=== PATIENT | male | born 1935 | race Caucasian/White ===

== ENCOUNTER 2021-01-26 09:45 | Outpatient (RCR) | payer MEDICARE, BC, SELFPAY ==
[2021-01-12 10:35] VITALS: BP 147/79; PULSE 71; TEMP 36.2
--- NOTE | 2021-01-12 15:31 | HP.PCM_ITS ---
History of Present Illness Date of Service: 01/12/21 Chief Complaint: Non healing Right leg Wound History of Wound: Mr. Muir is an 85 yo who presents to the wound center due to nonhealing right leg wound. Sustained 1 month ago after he was poked by a wire. Since he sustained the wound, he states that he has applied mupirocin ointment and some other dressings without any significant improvement. Patient states that it is very tender and rates his pain most times as an 8-9/10. Has also been on antibiotics most recent of which he completed 3 days ago. No prior/similar history. No chills, fever or otherwise feeling of unwell. [facility] Medical History (Updated 01/12/21 @ 15:[address] Logan Chao MD) Wound of right lower extremity Home Medications mupirocin TOPICAL 01/12/21 [History Last Taken Unknown] Social History Smoking Status: Former smoker ROS Constitutional Constitutional: Denies fatigue, fever(s), frequent falls, headache(s), increased appetite, lethargy or malaise Eyes Eyes: Denies blindness, bloody eye, blurry vision, burning, double vision, dry eyes, halo effect or itchy eyes ENT HEENT: Denies dental pain, disequillibrium, headache(s), hearing loss, hoarseness, lip swelling, mouth pain or mucositis Cardiovascular Cardiovascular: Denies chest pain at rest, chest pain with activity, claudication, clubbing, cold extremities, cyanosis or pale coelho skin Respiratory/Chest Respiratory/Chest: Denies difficulty clearing secretions, dry cough, dusky skin, excessive phlegm production, hemoptysis, hoarseness or pale skin Gastrointestinal Gastrointestinal: Denies abdominal pain, belching, chewing difficulty, coffee ground emesis, constipation, cramping or dysphagia Genitourinary Genitourinary: Denies abdominal discomfort, difficulty urinating, dysuria, erectile dysfunction or external genitalia discoloration Musculoskeletal Musculoskeletal: Denies deformity, difficulty walking, muscle cramps, muscle spasms, muscle weakness, myalgias or neck pain Integumentary Integumentary: Denies change in hair, change in pigmentation, erythema, furuncle, hirsutism or jaundice Neurologic Neurologic: Denies abnormal movements, abnormal speech, behavior changes, h eadache(s), lack of coordination or loss of vision Psychiatric Psychiatric: Denies depression, difficulty concentrating, mood swings, paranoia, suicidal ideation, suicidal thoughts or visual hallucinations Endocrine Endocrinology: Denies excessive sweating, fatigue, flushing, heat intolerance, increase in ring/shoe/hat size or palpitations Hematologic/Lymphatic Hematologic/Lymphatic: Denies anemia, easy bleeding, easy bruising or lymphadenopathy Allergic/Immunologic Allergic/Immunologic: Denies tongue swelling, hives, urticaria, eczemia or wheezing Vital Signs Vital Signs Vital Signs: 01/12/21 10:35 Temperature 97.1 F L Temperature Source Temporal Pulse Rate 71 Blood Pressure 147/79 H Blood Pressure Mean 101 Blood Pressure Source Monitor Blood Pressure Position Sitting Blood Pressure Location Left Arm Physical Exam Const alert, oriented x3 and no apparent distress General Appearance: cooperative and comfortable HEENT normocephalic and head/scalp atraumatic Eyes PERRL and EOMs intact bilaterally Neck full ROM General: normal visual inspection Resp normal respiratory effort Effort and Inspection: able to speak in complete sentences Skin Wounds: wounds noted Neuro oriented x3, CN's II-XII intact bilaterally, moves all extremities and no focal motor deficits Psych mental status grossly normal Appearance: grossly normal Attitude: calm Speech: normal speech Debridement Note Debridement Note Wound debrided: Right Lower Extremity Type of Debridement: Excisional debridement Anesthesia Used: 4% Lidocaine Solution Depth: Down to and including healthy tissue and in the subcutaneous layer Percentage of wound debrided: 100 Instrument Used: 5mm curette Tissue Removed: Slough and devitalized tissue Severity: Fat Layer Exposed Amount of bleeding with debridement: Mild Bleeding Controlled with: Pressure Patient tolerated procedure: Patient tolerated procedure well Post-Debridement Measurements and Additional Note: Post-Debridement Measurements/Treatment - Nurse 1 - General Ulcer Assessment Start: 01/12/21 10:10 Freq: Status: Active Protocol: ASHLI.JOJO Activity Type Activity Date Activity User E-Sign Co-Sign Detail Recorded Client Recorded Date Recorded By Document 01/12/21 10:35 ZANE [id number] 01/12/21 10:40 ZANE 01/12/21 10:35 - Today's Visit Information Type of service Initial Visit Arrival Mode Ambulatory Patient Identification Verified (Name & Yes ) Vital Signs Temperature (97.8 F-99.1 F) 97.1 F L Temperature Source Temporal Pulse Rate (60-100) 71 Pulse Location Monitor Blood Pressure (90/60-120/80) 147/79 H Blood Pressure Mean 101 Source Monitor Position Sitting Blood Pressure Location Left Arm History Since Last Visit- (Skip if this is Patient's initial visit) Have you changed medications since your No last visit? Any new allergies or adverse reactions No Had a fall/change in ADL's that may No increase risk of falls Signs or symptoms of abuse and/or No neglect since last visit Have you been in the hospital since your No last visit? Has dressing in place as prescribed No Has compression in place as prescribed N/A Has offloadiing in place as prescribed N/A Experienced any changes in pain level or No management Left Footwear Regular Shoe Right Footwear Regular Shoe Pain Scale: 0-10 Numeric Is Patient Pain Free? Yes WC - Nurse 1 - General Ulcer Measurement Start: 01/12/21 10:10 Freq: Status: Active Protocol: Activity Type Activity Date Activity User E-Sign Co-Sign Detail Recorded Client Recorded Date Recorded By Document 01/12/21 10:35 KR [id number] 01/12/21 10:40 ZANE 01/12/21 10:35 Wound Center Nurse 1 #1 Left medial LE -Current Size (cm) - Length 1.5 -Current Size (cm) - Width 1.5 -Current Size (cm) - Depth 0.1 -Total Square Cm 2.25 -Exudate Amt Small -Exudate Type Serosanguineous -Wound Margin Distinct, Outline Attached -Granulation Amt Medium (34-66%) -Granulation Quality Red -Necrosis Amt None Present (0 %) -Texture (Nina-wound Skin Appearance) Assessed, Scarring -Moisture (Nina-wound Skin Appearance) Assessed,Dry/ Scaly -Color (Nina-wound Skin Appearance) No Abnormality, Assessed -Temperature (Nina-wound Skin No Abnormality Appearance) (Pt Warm) -Tenderness on Palpation (Nina-wound No Skin Appearance) -Ulcer Cleansing Rinsed/ Irrigated with Saline -Foul Odor after Cleansing No -Anesthetic Used 5% Lidocaine Gel Right Calf (cm) 32 Right Ankle (cm) 22 WC - Nurse 2 - General Ulcer CM Notes Start: 01/12/21 10:10 Freq: Status: Active Protocol: Activity Type Activity Date Activity User E-Sign Co-Sign Detail Recorded Client Recorded Date Recorded By Document 01/12/21 11:04 MW [id number] 01/12/21 11:13 MW 01/12/21 11:04 Wound Center Nurse 2 #1 Left medial LE -Time 11:04 -Correct Patient Yes -Correct Side, Site, Position Yes -Correct Procedure Yes -Procedure Performed Yes -Type of Procedure Debridement -Clinical Debridement Subcutaneous -Tissue Removed Subcutaneous -Post Debridement (cm) - Length 1.0 -Post Debridement (cm) - Width 0.8 -Post Debridement (cm) - Depth 0.2 -Total Square (Post) (cm) 0.80 -Area of Debridement (cm) - Length 1.0 -Area of Debridement (cm) - Width 0.8 -Total Square (Area) (cm) 0.80 -Tunneling No -Undermining/Tunneling No -Circular Undermining No -Wound/Ulcer Outcome Not Healed -Ulcer Cleansing Rinsed/ Irrigated with Saline -Foul Odor after Cleansing No -Bioengineered Tissue No -Bleeding Controlled with Pressure -Offloading No -Treatment Response Procedure Tolerated Well -Debridement - Subq, 1st 20sq cm Yes Pain Scale: 0-10 Numeric Is Patient Pain Free? Yes - Nurse 3 - General Ulcer D/C NN Start: 01/12/21 10:10 Freq: Status: Active Protocol: Activity Type Activity Date Activity User E-Sign Co-Sign Detail Recorded Client Recorded Date Recorded By Document 01/12/21 11:18 DL [id number] 01/12/21 11:22 DL 01/12/21 11:18 Wound Care Nurse 3 #1 Left medial LE -Ulcer Cleansing Rinsed/ Irrigated with Saline -Foul Odor after Cleansing No -Primary Dressing Applied NonAdherent Contact Layer, Promogran -Primary Dressing Covered/Secured with Dry Gauze, Secured with Tape -Promogran 1 Treatment Response Procedure Tolerated Well Pain Scale: 0-10 Numeric Is Patient Pain Free? 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 Believes he was poked by a wire. Was seen by his PCP and treated with Keflex and mupirocin ointment however wound has not improved. Also reports a lot of pain. Debridement done as documented above pump, procedure was well- tolerated. Cultures taken. Promogran daily with Adaptic over top. Tubigrip for edema management. Elevate lower extremities when seated and in bed. Exercise as tolerated. Avoid idle standing. His questions were answered and he was advised to call with any further questions or concerns. Follow-up in 1 week. This note was generated with [employer] dictation software. It may contain incorrect words, spelling, and punctuation that were not noted in checking the note before signing.
[2021-01-19 10:24] VITALS: BP 146/71; PULSE 66; RESP 18; TEMP 35.9
--- NOTE | 2021-01-19 12:55 | PN.PCM_ITS ---
History of Present Illness Date of Service: 01/19/21 Chief Complaint: Non healing Right leg Wound History of Wound: Mr. Muir is an 85 yo who presents to the wound center due to nonhealing right leg wound. Sustained 1 month ago after he was poked by a wire. Since he sustained the wound, he states that he has applied mupirocin ointment and some other dressings without any significant improvement. Patient states that it is very tender and rates his pain most times as an 8-9/10. Has also been on antibiotics most recent of which he completed 3 days ago. No prior/similar history. No chills, fever or otherwise feeling of unwell. Subjective Subjective No new concerns at this time. Right lower extremity wound is improving. Objective Data Objective Data Vital Signs: Vital Signs Temp Pulse Resp BP 96.6 F L 66 18 146/71 H 01/19/21 10:24 01/19/21 10:24 01/19/21 10:24 01/19/21 10:24 Lab / Micro Data Micro: Microbiology 01/12/21 11:10 Wound Abcess - Leg, Left Gram Stain - Final 01/12/21 11:10 Wound Abcess - Leg, Left Wound Culture - Final Serratia marcescens 01/12/21 11:10 Wound Abcess - Leg, Left Anaerobic Culture - Final Anaerobic cocci Charges/Coding Procedures Integumentary 111xxx-113xx: [id number] Clare subq tissue 20 sq cm/< Physical Exam Const alert, oriented x3 and no apparent distress General Appearance: cooperative and comfortable HEENT normocephalic and head/scalp atraumatic Eyes PERRL and EOMs intact bilaterally Neck full ROM General: normal visual inspection Resp normal respiratory effort Effort and Inspection: able to speak in complete sentences Skin Wounds: wounds noted Neuro oriented x3, CN's II-XII intact bilaterally, moves all extremities and no focal motor deficits Psych mental status grossly normal Appearance: grossly normal Attitude: calm Speech: normal speech Debridement Note Debridement Note Wound debrided: Right lower extremity Type of Debridement: Excisional debridement Anesthesia Used: 4% Lidocaine Solution Depth: Down to and including healthy tissue and in the subcutaneous layer Percentage of wound debrided: 100 Instrument Used: 3mm curette Tissue Removed: Slough and devitalized tissue Severity: Fat Layer Exposed Amount of bleeding with debridement: Mild Bleeding Controlled with: Pressure Patient tolerated procedure: Patient tolerated procedure well Post-Debridement Measurements and Additional Note: Post-Debridement Measurements/Treatment WC - Nurse 1 - General Ulcer Assessment Start: 01/12/21 10:10 Freq: Status: Active Protocol: TANESHA Activity Type Activity Date Activity User E-Sign Co-Sign Detail Recorded Client Recorded Date Recorded By Document 01/12/21 10:35 KR [id number] 01/12/21 10:40 KR Document 01/19/21 10:24 DL [id number] 01/19/21 10:26 DL 01/12/21 01/19/21 10:35 10:24 WC - Today's Visit Information Type of service Initial Visit Follow-up Visit (Physician/GENERAL OFFICE CLERK ) Arrival Mode Ambulatory Ambulatory,Cane Transfer Assistance None Patient Identification Verified (Name & Yes Yes ) Patient Requires Transmission-Based No Precautions Vital Signs Temperature (97.8 F-99.1 F) 97.1 F L 96.6 F L Temperature Source Temporal Temporal Pulse Rate (60-100) 71 66 Pulse Location Monitor Monitor Respiratory Rate (12-18) 18 Respiratory rate source Observation Blood Pressure (90/60-120/80) 147/79 H 146/71 H Blood Pressure Mean (mm Hg) 101 96 Source Monitor Monitor Position Sitting Blood Pressure Location Left Arm History Since Last Visit- (Skip if this is Patient's initial visit) Have you changed medications since your No No last visit? Any new allergies or adverse reactions No No Had a fall/change in ADL's that may No No increase risk of falls Signs or symptoms of abuse and/or No No neglect since last visit Have you been in the hospital since your No No last visit? Has dressing in place as prescribed No Yes Has compression in place as prescribed N/A No Has offloadiing in place as prescribed N/A N/A Experienced any changes in pain level or No No management Left Footwear Regular Shoe Right Footwear Regular Shoe Pain Scale: 0-10 Numeric Is Patient Pain Free? Yes Yes - Nurse 1 - General Ulcer Measurement Start: 01/12/21 10:10 Freq: Status: Active Protocol: Activity Type Activity Date Activity User E-Sign Co-Sign Detail Recorded Client Recorded Date Recorded By Document 01/12/21 10:35 KR [id number] 01/12/21 10:40 KR Document 01/19/21 10:24 DL [id number] 01/19/21 10:26 DL 01/12/21 01/19/21 10:35 10:24 Wound Center Nurse 1 #1 right medial LE -Current Size (cm) - Length 1.5 0.5 -Current Size (cm) - Width 1.5 0.5 -Current Size (cm) - Depth 0.1 0.1 -Total Square Cm 2.25 0.25 -Photo Taken No -Exudate Amt Small None Present -Exudate Type Serosanguineous -Wound Margin Distinct, Distinct, Outline Outline Attached Attached -Granulation Amt Medium (34-66%) Small (1-33%) -Granulation Quality Red Red -Necrosis Amt None Present (0 Small (1-33%) %) -Necrotic Tissue Type Adherent Slough -Structure Exposed N/A -Texture (Nina-wound Skin Appearance) Assessed, Scarring Scarring -Moisture (Nina-wound Skin Appearance) Assessed,Dry/ No Abnormality Scaly -Color (Nina-wound Skin Appearance) No Abnormality, Hemosiderin Assessed Staining -Temperature (Nina-wound Skin No Abnormality No Abnormality Appearance) (Pt Warm) (Pt Warm) -Tenderness on Palpation (Nina-wound No No Skin Appearance) -Ulcer Cleansing Rinsed/ Rinsed/ Irrigated with Irrigated with Saline Saline -Foul Odor after Cleansing No No -Anesthetic Used 5% Lidocaine 4% Lidocaine Gel Solution Right Calf (cm) 32 35.1 Right Ankle (cm) 22 24.4 WC - Nurse 2 - General Ulcer CM Notes Start: 01/12/21 10:10 Freq: Status: Active Protocol: Activity Type Activity Date Activity User E-Sign Co-Sign Detail Recorded Client Recorded Date Recorded By Document 01/12/21 11:04 MW [id number] 01/12/21 11:13 MW Document 01/19/21 10:35 MW [id number] 01/19/21 12:01 MW 01/12/21 01/19/21 11:04 10:35 Wound Center Nurse 2 #1 right medial LE -Time 11:04 10:35 -Correct Patient Yes Yes -Correct Side, Site, Position Yes Yes -Correct Procedure Yes Yes -Procedure Performed Yes Yes -Type of Procedure Debridement Debridement -Clinical Debridement Subcutaneous Subcutaneous -Tissue Removed Subcutaneous Subcutaneous -Post Debridement (cm) - Length 1.0 0.6 -Post Debridement (cm) - Width 0.8 0.7 -Post Debridement (cm) - Depth 0.2 0.1 -Total Square (Post) (cm) 0.80 0.42 -Area of Debridement (cm) - Length 1.0 0.6 -Area of Debridement (cm) - Width 0.8 0.7 -Total Square (Area) (cm) 0.80 0.42 -Tunneling No No -Undermining/Tunneling No No -Circular Undermining No No -Wound/Ulcer Outcome Not Healed Not Healed -Ulcer Cleansing Rinsed/ Rinsed/ Irrigated with Irrigated with Saline Saline -Foul Odor after Cleansing No No -Bioengineered Tissue No No -Bleeding Controlled with Pressure Pressure -Offloading No No -Treatment Response Procedure Procedure Tolerated Well Tolerated Well -Debridement - Subq, 1st 20sq cm Yes Yes Pain Scale: 0-10 Numeric Is Patient Pain Free? Yes Yes - Nurse 3 - General Ulcer D/C NN Start: 01/12/21 10:10 Freq: Status: Active Protocol: Activity Type Activity Date Activity User E-Sign Co-Sign Detail Recorded Client Recorded Date Recorded By Document 01/12/21 11:18 DL [id number] 01/12/21 11:22 DL 01/12/21 11:18 Wound Care Nurse 3 #1 right medial LE -Ulcer Cleansing Rinsed/ Irrigated with Saline -Foul Odor after Cleansing No -Primary Dressing Applied NonAdherent Contact Layer, Promogran -Primary Dressing Covered/Secured with Dry Gauze, Secured with Tape -Promogran 1 Treatment Response Procedure Tolerated Well Pain Scale: 0-10 Numeric Is Patient Pain Free? Yes - Visit Discharge Discharge Condition Stable Ambulatory Status Ambulatory Transportation Private Auto Assessment/Plan Assessment/Plan (1) Wound of right lower extremity: CODE(S): S81.801A - Unspecified open wound, right lower leg, initial encounter QUALIFIERS: Encounter type: initial encounter Qualified Code(s): S81.801A - Unspecified open wound, right lower leg, initial encounter PLAN: Debridement done as documented above pump, procedure was well- tolerated. Cultures with no significant growth. Switch to hydrogel for ease of application and cleaning. Apply daily, cover with Adaptic. Tubigrip for edema management. Elevate lower extremities when seated and in bed. Exercise as tolerated. Avoid idle standing. His questions were answered and he was advised to call with any further questions or concerns. Follow-up in 1 week. This note was generated with [employer] software. It may contain incorrect words, spelling, and punctuation that were not noted in checking the note before signing.
[2021-01-26 09:52] VITALS: BP 153/86; PULSE 77; TEMP 35.9
--- NOTE | 2021-01-26 13:38 | PN.PCM_ITS ---
History of Present Illness Date of Service: 01/26/21 Chief Complaint: Non healing Right leg Wound History of Wound: Mr. Muir is an 85 yo who presents to the wound center due to nonhealing right leg wound. Sustained 1 month ago after he was poked by a wire. Since he sustained the wound, he states that he has applied mupirocin ointment and some other dressings without any significant improvement. Patient states that it is very tender and rates his pain most times as an 8-9/10. Has also been on antibiotics most recent of which he completed 3 days ago. No prior/similar history. No chills, fever or otherwise feeling of unwell. Subjective Subjective No new concerns at this time. Modest improvement. Still has a lot of pain. Objective Data Objective Data Vital Signs: Vital Signs Temp Pulse Resp BP 96.7 F L 77 18 153/86 H 01/26/21 09:52 01/26/21 09:52 01/19/21 10:24 01/26/21 09:52 Lab / Micro Data Micro: Microbiology 01/12/21 11:10 Wound Abcess - Leg, Left Gram Stain - Final 01/12/21 11:10 Wound Abcess - Leg, Left Wound Culture - Final Serratia marcescens 01/12/21 11:10 Wound Abcess - Leg, Left Anaerobic Culture - Final Anaerobic cocci Charges/Coding Procedures Integumentary 111xxx-113xx: [id number] Clare subq tissue 20 sq cm/< Physical Exam Const alert, oriented x3 and no apparent distress General Appearance: cooperative and comfortable HEENT normocephalic and head/scalp atraumatic Eyes PERRL and EOMs intact bilaterally Neck full ROM General: normal visual inspection Resp normal respiratory effort Effort and Inspection: able to speak in complete sentences Skin Wounds: wounds noted Neuro oriented x3, CN's II-XII intact bilaterally, moves all extremities and no focal motor deficits Psych mental status grossly normal Appearance: grossly normal Attitude: calm Speech: normal speech Debridement Note Debridement Note Wound debrided: Right lower extremity Type of Debridement: Excisional debridement Anesthesia Used: 4% Lidocaine Solution Depth: Down to and including healthy tissue Percentage of wound debrided: 100 Instrument Used: 3mm curette Tissue Removed: Slough and devitalized tissue Severity: Fat Layer Exposed Amount of bleeding with debridement: Mild Bleeding Controlled with: Pressure Patient tolerated procedure: Patient tolerated procedure well Post-Debridement Measurements and Additional Note: Post-Debridement Measurements/Treatment ASHLI - Nurse 1 - General Ulcer Assessment Start: 01/12/21 10:10 Freq: Status: Active Protocol: TANESHA Activity Type Activity Date Activity User E-Sign Co-Sign Detail Recorded Client Recorded Date Recorded By Document 01/12/21 10:35 KR [id number] 01/12/21 10:40 KR Document 01/19/21 10:24 DL [id number] 01/19/21 10:26 DL Document 01/26/21 09:52 AK [id number] 01/26/21 09:56 AK 01/12/21 01/19/21 01/26/21 10:35 10:24 09:52 WC - Today's Visit Information Type of service Initial Visit Follow-up Visit Follow-up Visit (Physician/CATERING AND EVENTS MANAGER (Physician/CATERING AND EVENTS MANAGER ) ) Arrival Mode Ambulatory Ambulatory,Cane Ambulatory,Cane Transfer Assistance None Patient Identification Verified (Name & Yes Yes No ) Patient Requires Transmission-Based No No Precautions Safety Precautions NA Vital Signs Temperature (97.8 F-99.1 F) 97.1 F L 96.6 F L 96.7 F L Temperature Source Temporal Temporal Temporal Pulse Rate (60-100) 71 66 77 Pulse Location Monitor Monitor Monitor Respiratory Rate (12-18) 18 Respiratory rate source Observation Blood Pressure (90/60-120/80) 147/79 H 146/71 H 153/86 H Blood Pressure Mean (mm Hg) 101 96 108 Source Monitor Monitor Monitor Position Sitting Blood Pressure Location Left Arm History Since Last Visit- (Skip if this is Patient's initial visit) Have you changed medications since your No No No last visit? Any new allergies or adverse reactions No No No Had a fall/change in ADL's that may No No No increase risk of falls Signs or symptoms of abuse and/or No No No neglect since last visit Have you been in the hospital since your No No No last visit? Has dressing in place as prescribed No Yes Yes Has compression in place as prescribed N/A No No Has offloadiing in place as prescribed N/A N/A N/A Experienced any changes in pain level or No No No management Left Footwear Regular Shoe Regular Shoe Right Footwear Regular Shoe Regular Shoe Pain Scale: 0-10 Numeric Is Patient Pain Free? Yes Yes ASHLI - Nurse 1 - General Ulcer Measurement Start: 01/12/21 10:10 Freq: Status: Active Protocol: Activity Type Activity Date Activity User E-Sign Co-Sign Detail Recorded Client Recorded Date Recorded By Document 01/12/21 10:35 KR [id number] 01/12/21 10:40 KR Document 01/19/21 10:24 DL [id number] 01/19/21 10:26 DL Document 01/26/21 09:52 AK [id number] 01/26/21 09:56 AK 01/12/21 01/19/21 01/26/21 10:35 10:24 09:52 Wound Center Nurse 1 #1 right medial LE -Combined with other wound No -Current Size (cm) - Length 1.5 0.5 0.5 -Current Size (cm) - Width 1.5 0.5 0.5 -Current Size (cm) - Depth 0.1 0.1 0.2 -Total Square Cm 2.25 0.25 0.25 -Photo Taken No No -Epithelialization None Present -Tunneling No -Undermining/Tunneling No -Circular Undermining No -Change in Wound Grade/Stage No -Exudate Amt Small None Present Medium -Exudate Type Serosanguineous Serosanguineous -Wound Margin Distinct, Distinct, Distinct, Outline Outline Outline Attached Attached Attached -Granulation Amt Medium (34-66%) Small (1-33%) Medium (34-66%) -Granulation Quality Red Red Carlin -Slough/Fibrin No -Necrosis Amt None Present (0 Small (1-33%) Small (1-33%) %) -Necrotic Tissue Type Adherent Slough Adherent Slough -Structure Exposed N/A N/A -Texture (Nina-wound Skin Appearance) Assessed, Scarring Scarring Scarring -Moisture (Nina-wound Skin Appearance) Assessed,Dry/ No Abnormality Assessed, Scaly Maceration -Color (Nina-wound Skin Appearance) No Abnormality, Hemosiderin Assessed, Assessed Staining Erythema -Temperature (Nina-wound Skin No Abnormality No Abnormality No Abnormality Appearance) (Pt Warm) (Pt Warm) (Pt Warm) -Tenderness on Palpation (Nina-wound No No Yes: extremely Skin Appearance) sensitive -Ulcer Cleansing Rinsed/ Rinsed/ Rinsed/ Irrigated with Irrigated with Irrigated with Saline Saline Saline -Foul Odor after Cleansing No No No -Anesthetic Used 5% Lidocaine 4% Lidocaine 4% Lidocaine Gel Solution Solution,5% Lidocaine Gel Right Calf (cm) 32 35.1 Right Ankle (cm) 22 24.4 - Nurse 2 - General Ulcer CM Notes Start: 01/12/21 10:10 Freq: Status: Active Protocol: Activity Type Activity Date Activity User E-Sign Co-Sign Detail Recorded Client Recorded Date Recorded By Document 01/12/21 11:04 MW [id number] 01/12/21 11:13 MW Document 01/19/21 10:35 MW [id number] 01/19/21 12:01 MW Document 01/26/21 10:38 MW [id number] 01/26/21 10:40 MW 01/12/21 01/19/21 01/26/21 11:04 10:35 10:38 Wound Center Nurse 2 #1 right medial LE -Time 11:04 10:35 10:38 -Correct Patient Yes Yes Yes -Correct Side, Site, Position Yes Yes Yes -Correct Procedure Yes Yes Yes -Procedure Performed Yes Yes Yes -Type of Procedure Debridement Debridement Debridement -Clinical Debridement Subcutaneous Subcutaneous Subcutaneous -Tissue Removed Subcutaneous Subcutaneous Subcutaneous -Post Debridement (cm) - Length 1.0 0.6 0.6 -Post Debridement (cm) - Width 0.8 0.7 0.6 -Post Debridement (cm) - Depth 0.2 0.1 0.1 -Total Square (Post) (cm) 0.80 0.42 0.36 -Area of Debridement (cm) - Length 1.0 0.6 0.6 -Area of Debridement (cm) - Width 0.8 0.7 0.6 -Total Square (Area) (cm) 0.80 0.42 0.36 -Tunneling No No No -Undermining/Tunneling No No No -Circular Undermining No No No -Wound/Ulcer Outcome Not Healed Not Healed Not Healed -Ulcer Cleansing Rinsed/ Rinsed/ Rinsed/ Irrigated with Irrigated with Irrigated with Saline Saline Saline -Foul Odor after Cleansing No No No -Bioengineered Tissue No No No -Bleeding Controlled with Pressure Pressure Pressure -Offloading No No No -Treatment Response Procedure Procedure Procedure Tolerated Well Tolerated Well Tolerated Well -Debridement - Subq, 1st 20sq cm Yes Yes Yes Pain Scale: 0-10 Numeric Is Patient Pain Free? Yes Yes - Nurse 3 - General Ulcer D/C NN Start: 10/14/21 10:10 Freq: Status: Active Protocol: Activity Type Activity Date Activity User E-Sign Co-Sign Detail Recorded Client Recorded Date Recorded By Document 01/12/21 11:18 DL [id number] 01/12/21 11:22 DL Document 01/26/21 10:50 AK [id number] 01/26/21 10:52 AK 01/12/21 01/26/21 11:18 10:50 Wound Care Nurse 3 #1 right medial LE -Ulcer Cleansing Rinsed/ Rinsed/ Irrigated with Irrigated with Saline Saline -Foul Odor after Cleansing No No -Negative Pressure Wound Therapy N/A -Primary Dressing Applied NonAdherent Promogran Contact Layer, Promogran -Primary Dressing Covered/Secured with Dry Gauze, Dry Gauze, Secured with Secured with Tape Tape -Promogran 1 1 Right -Lotion applied to leg before No compression wrap -Size of Tubigrip Used Size D -Size D ($) 0 -Other own- but wont wear Treatment Response Procedure Tolerated Well Pain Scale: 0-10 Numeric Is Patient Pain Free? Yes WC - Visit Discharge Discharge Condition Stable Stable Ambulatory Status Ambulatory Ambulatory,Cane Transportation Private Auto Private Auto Medication Reconcilliation completed & No provided to patient/care provider Clinical Summary of Care Provided Yes Assessment/Plan Assessment/Plan (1) Wound of right lower extremity: CODE(S): S81.801A - Unspecified open wound, right lower leg, initial encounter QUALIFIERS: Encounter type: initial encounter Qualified Code(s): S81.801A - Unspecified open wound, right lower leg, initial encounter PLAN: Debridement done as documented above, procedure was well-tolerated. Patient still has a lot of pain with debridement. If this continues, will get vascular studies next week. We will go back to Promogran, apply daily, cover with Adaptic. Tubigrip for edema management. Elevate lower extremities when seated and in bed. Exercise as tolerated. Avoid idle standing. His questions were answered and he was advised to call with any further questions or concerns. Follow-up in 1 week. This note was generated with [employer] dictation software. It may contain incorrect words, spelling, and punctuation that were not noted in checking the note before signing.
== END 2021-01-29 23:59 ==
LOC: WC 09:45
PROVIDERS: PCP Family Medicine; Visit Provider Internal Medicine
DX: S81.831A Puncture wound without foreign body, right lower leg, initial encounter (principal); X58.XXXA Exposure to other specified factors, initial encounter; Y93.9 Activity, unspecified; Y92.9 Unspecified place or not applicable; Y99.9 Unspecified external cause status; Z87.891 Personal history of nicotine dependence
CPT/HCPCS: 11042; 87070; 87075; 87077; 87186; 87205; 99203; G0463

== ENCOUNTER 2021-03-02 11:30 | Outpatient (RCR) | payer MEDICARE, BC, SELFPAY ==
[2021-03-01 00:34] VITALS: BP 143/101; PULSE 77; RESP 17; TEMP 36.1
[2021-03-02 11:36] VITALS: BP 170/85; PULSE 71; RESP 18; TEMP 36.4
--- NOTE | 2021-03-02 12:57 | PN.PCM_ITS ---
History of Present Illness Date of Service: 03/02/21 Chief Complaint: Non healing Right leg Wound History of Wound: Mr. Muir is an 85 yo who presents to the wound center due to nonhealing right leg wound. Sustained 1 month ago after he was poked by a wire. Since he sustained the wound, he states that he has applied mupirocin ointment and some other dressings without any significant improvement. Patient states that it is very tender and rates his pain most times as an 8-9/10. Has also been on antibiotics most recent of which he completed 3 days ago. No prior/similar history. No chills, fever or otherwise feeling of unwell. Progress of Wound: Recently had vascular studies which did not show any significant concerns. Also had culture with no significant growth. He denies any new concerns at this time. Subjective Subjective No new concerns at this time. Objective Data Objective Data Vital Signs: Vital Signs Temp Pulse Resp BP 97.5 F L 71 18 170/85 H 03/02/21 11:36 03/02/21 11:36 03/02/21 11:36 03/02/21 11:36 Charges/Coding Procedures Integumentary 111xxx-113xx: [id number] Clare subq tissue 20 sq cm/< (Selective debridement done.) Physical Exam Const alert, oriented x3 and no apparent distress General Appearance: cooperative and comfortable HEENT normocephalic and head/scalp atraumatic Eyes PERRL and EOMs intact bilaterally Neck full ROM General: normal visual inspection Resp normal respiratory effort Effort and Inspection: able to speak in complete sentences Skin Wounds: wounds noted Neuro oriented x3, CN's II-XII intact bilaterally, moves all extremities and no focal motor deficits Psych mental status grossly normal Appearance: grossly normal Attitude: calm Speech: normal speech Debridement Note Debridement Note Wound debrided: Right lower extremity Type of Debridement: Selective debridement Anesthesia Used: 4% Lidocaine Solution Depth: Down to and including healthy tissue and in the subcutaneous layer Percentage of wound debrided: 100 Tissue Removed: Slough and devitalized tissue Severity: Fat Layer Exposed Amount of bleeding with debridement: Mild Bleeding Controlled with: Pressure Patient tolerated procedure: Patient tolerated procedure well Assessment/Plan Assessment/Plan (1) Wound of right lower extremity: CODE(S): S81.801A - Unspecified open wound, right lower leg, initial encounter QUALIFIERS: Encounter type: initial encounter Qualified Code(s): S81.801A - Unspecified open wound, right lower leg, initial encounter (2) Lower limb pain, anterior: CODE(S): M79.606 - Pain in leg, unspecified QUALIFIERS: Laterality: right Qualified Code(s): M79.604 - Pain in right leg PLAN: Debridement done as documented above, procedure was well-tolerated. Continue Promogran, apply daily, cover with Adaptic. Tubigrip for edema management. Elevate lower extremities when seated and in bed. Exercise as tolerated. Avoid idle standing. His questions were answered and he was advised to call with any further questions or concerns. Patient states that he is leaving for [place] with his . Also not open to more debridement. He was advised to clean the wound daily with a washcloth and apply Promogran and Adaptic as discussed. Continue application until healed. Discharge from the wound center, per patient request. This note was generated with [employer] dictation software. It may contain incorrect words, spelling, and punctuation that were not noted in checking the note before signing.
== END 2021-03-02 12:19 | disposition home or self-care (01) ==
LOC: WC 11:30
PROVIDERS: PCP Family Medicine; Referring Provider Internal Medicine; Visit Provider Internal Medicine
DX: S81.831A Puncture wound without foreign body, right lower leg, initial encounter (principal); M79.604 Pain in right leg; X58.XXXA Exposure to other specified factors, initial encounter; Y93.9 Activity, unspecified; Y92.9 Unspecified place or not applicable; Y99.9 Unspecified external cause status
CPT/HCPCS: 97597

== ENCOUNTER 2022-02-26 12:45 | Outpatient (CLI) | payer MEDICARE, BC, SELFPAY ==
--- NOTE | 2022-02-26 14:09 | ST.MBS ---
Modified Barium Swallow - Patient Information Study Date: 02/26/22 Study Time: 13:00 Direct Billable Minutes: 90 Total Minutes procedure & reportin Diagnosis: Dysphagia (R13.10) Referring Physician: Eduardo Calderon Reason for Referral: Objectively assess swallow function, risk for aspiration, and determine recommendations for least restrictive diet textures and compensatory strategies to improve safety of swallow. Medical History: The patient is an 86-year-old male with PMH including GERD (managed by omeprazole for the past 2 months). The patient was referred by his PCP to assess concerns for swallowing dysfunction. The patient denies difficulty swallowing food or drink; however, he does require 2-3 swallows to clear bites at time and he has difficulty swallowing his vitamins. He must break his vitamins into 2 or 3 pieces to be able to swallow with water. He reports coughing episodes every 2-3 days that occur randomly (he feels they are onset by the cold on his throat), which improves after he drinks water. This coughing spell has occurred for at least 40 years. He feels all the above symptoms have improved in the last two months since he began taking omeprazole. Current Diet Ordered: Regular textures / Thin liquids Dentition: Upper Dentures Mental Status: WNL Respiratory Status: Oxygenating on Room Air - Penetration-Aspiration Scale Penetration-Aspiration Scale: OBJECTIVE ASSESSMENT OF SWALLOW FUNCTION (QUANTITATIVE ? PER TRIAL): PENETRATION / ASPIRATION SCALE ([place]): 1 = does not enter airway 2 = enters airway/above vocal folds/ejected 3 = enters airway/above vocal folds/not ejected 4 = enters airway/contacts vocal folds/ejected 5 = enters airway/contacts vocal folds/not ejected 6 = enters airway/below vocal folds/ejected 7 = enters airway/below vocal folds/not ejected despite effort 8 = enters airway/below vocal folds/no effort VIDEOFLOROSCOPIC SCALE SCORE ([place]): Grade I = aspiration of material that has penetrated into the laryngeal vestibule, intact cough reflex Grade II = aspiration < 10 % of the bolus, intact cough reflex Grade III = aspiration of < 10 % of the bolus, reduced cough reflex or aspiration of > 10 % of the bolus, intact cough reflex Grade IV = aspiration of > 10 % of the bolus, reduced cough reflex - Penetration-Aspiration Scale Score Thin Liquid via teaspoon Result: 1= does not enter airway Thin Liquid via teaspoon Trial 2 Result: 1= does not enter airway Thin Liquid via large single sip from cup Result: 3= enters airways/above vocal folds/not ejected Thin Liquid via sequential sips from cup Result: 3= enters airways/above vocal folds/not ejected [place] Thick Liquid via large single sip from cup Result: 3= enters airways/above vocal folds/not ejected Honey Thick Liquid via small single sip from cup Result: 1= does not enter airway Pudding via teaspoon with esophageal screen Result: 1= does not enter airway 1/2 Cookie Result: 1= does not enter airway Thin Liquid via single sip from straw Result: 2= enter airway/above vocal folds/ejected Thin Liquid via small single sip from cup Result: 2= enter airway/above vocal folds/ejected Thin Liquid via small single sip from cup Effortful swallow Result: 2= enter airway/above vocal folds/ejected Barium tablet with water Result: 2= enter airway/above vocal folds/ejected Comment: Pt chewed barium tablet into smaller pieces, small piece penetrated the laryngeal vestibule and fully ejected with cough reflex. Barium tablet (halved) with applesauce Result: 1= does not enter airway - Oral Phase Labial Seal: No Labial Escape Tongue Control During Bolus Hold: Posterior escape of less than half of bolus Bolus Preparation/Mastication: Timely and efficient chewing and mashing Bolus Transport/Lingual Motion: Repetitive/disorganized tongue motion Oral Residue: Residue collection on oral structures - Pharyngeal Phase Initiation of Pharyngeal Swallow: Bolus head in pyriforms Soft Palate Elevation: Trace column of contrast/air between soft palate and pharyngeal wall Laryngeal Elevation: Partial superior movement thyroid cart/partial apprx aryt-epig petiole Anterior Hyoid Excursion: Complete anterior movement Epiglottic Movement: Complete inversion Laryngeal Vestibule Closure at Height of Swallow: Incomplete; narrow column of air/contrast in laryngeal vestibule Pharyngeal Stripping Wave: Present - complete Pharyngoesophageal Segment Opening: Complete distension and complete duration; no obstruction of flow Tongue Base Retraction: Narrow column of contrast between tongue base & post. pharyngeal wall Pharyngeal Residue: Collection of residue within or on pharyngeal structures - Esophageal Phase Esophageal Clearance: Complete clearance - min retrograde flow of pudding through LES that immediately cleared to the stomach - Treatment Strategies Effects of treatment strategies attemped:: Decreased sip size = effective. Effortful swallow = effective. - Diagnosis/Impression Diagnosis: Mild oropharyngeal phase dysphagia (R13.12) Impression: The oral phase is primarily marked by... -Decreased bolus control with <1/2 of the bolus spilling posteriorly to the pyriforms prior to swallow onset observed with large sips of thin liquids especially. -Lingual pumping observed during A-P transport -Mild oral residue after the swallow, which mostly cleared with independent initiation of multiple swallows. -Did not complete cookie trial due to concerns for choking with decreased bolus control and poor pharyngeal clearance. The pharyngeal phase is primarily marked by... -Mild delay initiating the swallow. -Mildly decreased airway closure during the swallow due to decreased laryngeal elevation. -Mildly decreased tongue base retraction with resulting mild pharyngeal residues, which he cleared with independent initiation of multiple swallows. -No aspiration observed during the study. Consistent laryngeal penetration across thin liquid trials via cup, which did not reliably eject from the laryngeal vestibule after the swallow. Use of decreased bolus size and effortful swallows were most effective in decreasing laryngeal penetration of thin liquids during the swallow. -With use of water, the patient had difficulty clearing the barium tablet from the oral cavity. He chewed the tablet, the provided another liquid wash with resulting laryngeal penetration of portion of tablet. Cough reflex successfully ejected the barium tablet fragment from the laryngeal vestibule. Will recommend taking pills with applesauce - halve them if they are too large. The esophageal phase is primarily marked by... -CP bar present at the level of C-4, which did not appear to impact bolus clearance through the UES. - Recommendations Diet: Regular Textures, Thin Liquids Comment: Medications/vitamins whole (or halved if too large) in applesauce/pudding/yogurt. Compensatory Strategies: Small Bites, Small Sips - use effortful/hard swallows with liquids, Slow Rate - sips one at a time, Sitting upright, Remain sitting upright for 30 minutes after PO intake Recommend Repeat Modified Barium Swallow: TBD Need for Skilled Speech Therapy Services: Yes Comment: Will recommend the patient for outpatient dysphagia therapy to address mild deficits in oropharyngeal swallow function. Will recommend the patient for oropharyngeal strengthening to improve lingual control, laryngeal elevation, and tongue base retraction (lingual resistance exercises, Christel, CTAR, Antony). The patient would benefit from thorough education regarding diet recommendations and recommended compensatory strategies. Education Completed: 1. Described result of evaluation., 2. Pt understands evaluation & agrees with goals and treatment plan., 7. Pt requires further education on strategies & risks. - Status Active ST Patient: Active - Contact Information [facility] Speech Therapy:: Ligia Guidry M.A. [facility] [facility] Speech-Language Pathologist [place] [id number] [place] [address] [email or web address] [phone] 02/26/22 15:11
== END 2022-02-26 23:59 | disposition home or self-care (01) ==
LOC: RAD 12:47
PROVIDERS: PCP Family Medicine; Referring Provider Family Medicine; Visit Provider Family Medicine
DX: R13.10 Dysphagia, unspecified (principal)
CPT/HCPCS: 74230; 92611

== ENCOUNTER 2023-01-12 15:53 | Inpatient (IN) | payer MEDICARE, BC, SELFPAY ==
[2023-01-12] VITALS (9 sets, daily range): BP systolic 125–155; BP diastolic 70–89; PULSE 58–87; RESP 15–18; TEMP 36.1–37.2; O2SAT 93–100; BMI 18.1; BMI 17.2
[2023-01-12 16:53] LABS: Absolute Lymphocyte Count 2.16 X10^3/uL (0.83-4.51); Absolute Neutrophil Count 4.2 X10^3/uL (2.0-7.7); Basophil# 0.04 X10^3/uL; Basophil% 0.6 % (0-1); Eosinophil# 0.08 X10^3/uL; Eosinophils% 1.1 % (0-5); Hemoglobin 14.1 g/dL (13.0-16.5); Lymphocyte # 2.16 X10^3/ul (0.83-4.51); Lymphocyte % 30.6 % (19-41); Mean Corp Hgb Conc 32.8 g/dL (32-36); Mean Corpuscular Hgb 32.6 pg (27.0-32.0); Mean Corpuscular Volume 99.3 fL (80-94); Mean Platelet Vol. 8.9 fl (6.2-12.0); Monocyte# 0.51 X10^3/uL; Monocyte% 7.2 % (0-10); NRBC Flagged by Analyzer 0 % (0-5); Neutrophil # 4.24 X10^3/uL (2.7-7.7); Neutrophil % 60.2 % (47-70); Platelet Count 244 K/mm3 (150-450); RBC Distribution Width CV 12.6 % (11.6-14.6); RBC Distribution Width SD 46.4 fl (35.1-43.9); Red Blood Count 4.33 M/mm3 (4.6-6.2); White Blood Count 7.1 K/mm3 (4.4-11.0)
[2023-01-12 17:05] LABS: Bacteria 0 SEEN /hpf (None Seen); Color, Urine Yellow (Yellow); Glucose, Dipstick Normal (Normal); Ketone-Dipstick 5 mg/dl (Negative); Leukocyte Esterase-Dipstick 25 /ul (Negative); Mucous, Urine 0 SEEN /hpf (<or=2+); Nitrite-Dipstick Negative (Negative); Occult Blood-Urine Negative /ul (Negative); Protein-Dipstick 15 mg/dl (Negative); Red Blood Cells-Urine 0 SEEN /hpf (0-5); Specific Gravity, Urine 1.015 (1.002-1.030); Squamous Epithelial Cells - UA 0 SEEN /hpf (0-5); Urine Bilirubin Dipstick Negative (Negative); Urine Clarity Cloudy (Clear); Urine Urobilinogen Normal (Normal); White Blood Cells 0 SEEN /hpf (0-5)
[2023-01-12 17:16] LABS: ALB/GLOB Ratio 1.3 RATIO (0.9-2.4); AST(SGOT) 26 U/L (15-37); Alanine Aminotransfer ALT/SGPT 35 U/L (16-61); Albumin, Serum 3.8 g/dL (3.2-5.0); Alkaline Phosphatase 95 U/L (45-117); Anion Gap 6 (5-15); BUN 20 mg/dL (7-18); BUN/Creat Ratio 20.6 RATIO (10-20); Calcium,Total 9.2 mg/dL (8.5-10.1); Chloride 105 mmol/L (98-107); Creatinine, Serum 0.97 mg/dL (0.70-1.30); EST Glomerular Filtration Rate 78 mL/min (>60); Est Glom Filt Rate - Afr Amer 94 mL/min (>60); Estimated Creatinine Clearance 45.33 ml/min; Globulin 2.9 g/dL (2.2-4.2); Glucose 126 mg/dL (74-106); Lipase 44 U/L (13-75); Potassium 4.3 mmol/L (3.5-5.1); Protein, Total 6.7 g/dL (6.4-8.2); Sodium Level 140 mmol/L (136-145)
[2023-01-12 17:16] LABS: Amorphous Sediment 1+
--- NOTE | 2023-01-12 17:32 | ED.VIS.GI ---
HPI HPI - GI History of Present Illness Chief Complaint: Abd Pain Narrative Narrative: 87-year-old male presenting with abdominal pain. He states it feels like his entire abdomen is burning. This started about 8 AM after breakfast. Patient was able to eat breakfast and eat lunch but states he started to feel nauseous. His pain is gradually increased over the course of the day. He states he had 1 bowel movement today that was several inches long and thin like a pencil lead and then he had a normal bowel movement. Now he is not passing much flatus. He has a distant history of a large polyp which could not be removed so he had a segment of his bowel removed by Dr. Hendrix anastomosis was about 10 years ago. [facility] Medical History History of intestine removal Lower limb pain, anterior Wound of right lower extremity Home Medications NK 01/12/23 [History Last Taken Unknown] Allergy/AdvReac Type Severity Reaction Status Date / Time No Known Allergies Allergy Verified 01/12/23 15:55 Social History Smoking Status: Former smoker ROS ROS ED Constitutional Constitutional ED: Denies chills, fever(s) or sweats Eyes Eyes: Denies blurry vision or change in vision ENT ENT ED: Denies ear pain or sore throat Cardiovascular Cardiovascular: Denies chest pain, palpitations or racing heartbeat Respiratory/Chest Respiratory/Chest: Denies cough, dyspnea or sputum Gastrointestinal Gastrointestinal: Reports abdominal pain and nausea; Denies constipation, diarrhea or vomiting Genitourinary Genitourinary ED: Denies dysuria, hematuria or urinary frequency Musculoskeletal Musculoskeletal: Denies arthralgias, myalgias or neck pain Integumentary Denies abscess, Abrasions or rash Neurologic Neurologic: Denies headache(s), paresthesias or weakness Psychiatric Psychiatric: Denies anxiety, depression, suicidal ideation or suicidal thoughts Endocrine Endocrinology: Denies polydipsia or polyuria EXAM Physical Exam Const Vital Signs: 01/12/23 15:55 01/12/23 17:53 01/12/23 19:00 Temperature 97 F L Temperature Source Temporal Pulse Rate 58 L 62 61 Respiratory Rate 18 15 15 Blood Pressure 153/73 H 149/89 H Blood Pressure Mean 99 109 Pulse Ox 100 98 98 Oxygen Delivery Method Room Air Room Air Room Air 01/12/23 19:03 Temperature Temperature Source Pulse Rate 63 Respiratory Rate 15 Blood Pressure 155/79 H Blood Pressure Mean 104 Pulse Ox 98 Oxygen Delivery Method Positive well nourished General Appearance ED: NAD; Negative for pallor HEENT Reports moist mucous membranes normocephalic Eyes PERRL and EOMs intact bilaterally Resp normal respiratory effort and clear to auscultation bilaterally Auscultation: rales, rhonchi and wheezes Cardio regular rate and regular rhythm GI Palpation: tender periumbilical and guarding Back/Spine no CVA tenderness Neuro CN's II-XII intact bilaterally and moves all extremities Sensorium / Orientation: alert Psych mental status grossly normal and thought process normal Skin no wounds General Skin Exam: Negative for jaundice or pallor MDM MDM MDM Narrative Medical decision making narrative: Patient is presenting with increasing diffuse abdominal pain which feels like burning since earlier today. Differential includes colitis, diverticulitis, gastritis, pancreatitis, constipation, UTI, pyelonephritis, renal calculi, ureteral calculi, bowel obstruction, malignancy, dehydration, electrolyte abnormalities. CBC will be obtained to assess white blood cell count, hemoglobin, platelets. CMP to assess liver function, renal function, electrolytes. Lipase to assess for pancreatitis. Urinalysis to assess for UTI. CT of the abdomen pelvis with IV contrast will be obtained. Patient was medicated with IV fluids, morphine, Zofran. He shows a white blood cell count is normal at 7.1. Hemoglobin stable 14.1. Platelets are normal at 244. Renal function is normal. LFTs and lipase are normal. Patient initially medicated with morphine and went from a 9 to a 7. He is given a second dose. On reevaluation he is still pretty tender. At the time the CT was performed I did see what looks like bowel obstruction secondary to volvulus as I see a swirl sign. I spoke with Dr. Aguilar at the time and he reviewed the CT with me. There is concern for midgut volvulus as well bowel obstruction. The radiologist called me later to tell me that there is a. Mesenteric vein thrombosis in addition to admitted to volvulus but the bowel did not exhibit ischemic changes on the CT. This was discussed with Dr. Aguilar. Patient was taken to the OR. Impression: 1. Volvulus 2. Superior mesenteric vein thrombosis 3. Lactic acidosis Lab Data Labs: Laboratory Results - last 24 hr 01/12/23 01/12/23 16:35 17:00 WBC 7.1 RBC 4.33 L Hgb 14.1 Hct 43.0 MCV 99.3 H MCH 32.6 H MCHC 32.8 RDW Std Deviation 46.4 H RDW Coeff of Enio 12.6 Plt Count 244 MPV 8.9 Immature Gran % (Auto) 0.300 Neut % (Auto) 60.2 Lymph % (Auto) 30.6 [place] % (Auto) 7.2 Eos % (Auto) 1.1 Baso % (Auto) 0.6 Absolute Neuts (auto) 4.2 Absolute Lymphs (auto) 2.16 Nucleated RBC % 0 Sodium 140 Potassium 4.3 Chloride 105 Carbon Dioxide 29.0 Anion Gap 6 BUN 20 H Creatinine 0.97 Estim Creat Clear Calc 45.33 Est GFR (MDRD) Af Amer 94 Est GFR (MDRD) Non-Af 78 BUN/Creatinine Ratio 20.6 H Glucose 126 H Lactic Acid 3.6 H* Calcium 9.2 Total Bilirubin 0.50 AST 26 ALT 35 Alkaline Phosphatase 95 Total Protein 6.7 Albumin 3.8 Globulin 2.9 Albumin/Globulin Ratio 1.3 Lipase 44 Urine Color Yellow Urine Clarity Cloudy Urine pH 8.0 Ur Specific [place] 1.015 Urine Protein 15 H Urine Glucose (UA) Normal Urine Ketones 5 H Urine Occult Blood Negative Urine Nitrite Negative Urine Bilirubin Negative Urine Urobilinogen Normal Ur Leukocyte Esterase 25 H Urine RBC 0 SEEN Urine WBC 0 SEEN Ur Squamous Epith Cells 0 SEEN Amorphous Sediment 1+ Urine Bacteria 0 SEEN Urine Mucus 0 SEEN Radiography Diagnostic Testing: Clinical Impression(s) from Imaging Studies Abdomen/Pelvis CT 01/12/23 18:02 IMPRESSION: 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 Clinical correlation and follow-up imaging would be useful. N.B. : The above Results were Read Back by Nathaniel Avitia MD to Juan Manuel Ann DO, and understanding confirmed on 01/12/2023 19:03:55 (ET). 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 Clinical correlation and follow-up imaging would be useful. N.B. : The above Results were Read Back by Nathaniel Avitia MD to Juan Manuel Ann DO, and understanding confirmed on 01/12/2023 19:03:55 (ET). Electronically Signed: Nathaniel Avitia MD at 19:05 EDT , Discharge Plan Triage Chief Complaint: Abd Pain ED Provider: Juan Manuel Ann Dx/Rx/DC Orders Prescriptions: No Action NK Primary Care Provider: Eduardo Calderon Referrals: Eduardo Calderon MD [Primary Care Provider] -
[2023-01-12] MEDS: 0.9% Normal Saline (1000mL) 1,000 ML 999 ML IV (17:38)
[2023-01-12] MEDS: Ondansetron 4 MG/2 ML Vial IV (17:38)
[2023-01-12] MEDS: Morphine 4 MG/ML Syringe IV (17:38)
--- NOTE | 2023-01-12 18:02 | CT_ITS ---
STUDY: CT ABDOMEN AND PELVIS WITH CONTRAST REASON FOR EXAM: Male, 87 years old. abdominal pain RADIATION DOSAGE (If Supplied By Facility): CTDIvol = ( 11.23 ) mGy, DLP = ( 288.04 ) mGycm TECHNIQUE: Transaxial images were obtained from the dome of the diaphragm to the symphysis pubis without oral contrast. IV 100mL Isovue-370 was administered. Sagittal and coronal images were reconstructed. Individualized dose optimization techniques were used for this CT. COMPARISON: None. FINDINGS: The visualized lung bases are unremarkable. The visualized portions of the heart are within normal limits. Small amount of ascites. Normal liver. Normal gallbladder and extrahepatic biliary system. Normal spleen. Normal pancreas. Normal bilateral adrenal glands. Normal right kidney. 1.5 cm cyst midsection left kidney. Normal visualized stomach. Normal small intestine. Swirled appearance to the vasculature of the small bowel mesentery possibly consistent with a midgut malrotation but no evidence of bowel dilatation to suggest bowel obstruction. Edema of the small bowel mesentery. There is a filling defect within the superior mesenteric vein on images 46 through 50 worrisome for thrombosis. No bowel wall thickening or pneumatosis to suggest ischemia. Normal colon. The appendix is visualized and appears normal. There is diffuse atherosclerotic calcification of the abdominal aorta, without a demonstrated aneurysm. Normal inferior vena cava. Normal retroperitoneum. Normal urinary bladder. Normal abdominal wall. Mild dextroscoliosis of the lumbar spine with degenerative disc disease. 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 Clinical correlation and follow-up imaging would be useful. N.B. : The above Results were Read Back by Nathaniel Avitia MD to Juan Manuel Ann DO, and understanding confirmed on 01/12/2023 19:03:55 (ET). Electronically Signed: Nathaniel Avitia MD at 19:05 EDT ,
[2023-01-12] MEDS: Oxymetazoline 0.05% 1 SPRAY SPRAY.BTL 2 SPRAY NASAL (18:43)
[2023-01-12 18:54] LABS: Lactic Acid 3.6 mmol/L (0.4-1.9)
--- NOTE | 2023-01-12 19:14 | PCM.HP.STD ---
HPI - General General Date of Service: 01/12/23 Chief Complaint: Acute onset abdominal pain and nausea HPI Narrative ROXANA OWENS, is a 87 M who presents to [facility] with complaints of burning abdominal pain and associated nausea that began approximately 1330 this afternoon. He states that this pain was preceded with the production of a pencil?thin stool. He notes that the pain became progressive and reached a height of a 9 out of 10. He flatly declares that he has never had pain like this before in his entire life. Patient's ER work-up is notable for CBC without leukocytosis, normal hemoglobin, CMP within normal limits, and CT imaging of the abdomen pelvis that was not read immediately by radiology but showed evidence of a mesenteric swirl sign. Emergency medicine expressed concern about patient's abdominal exam and this finding and notified me so I requested a lactic acid and presented to patient's bedside. 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 Patient denies any current medications and reports that he is quite healthy. He does have a past surgical history inclusive of an appendectomy as a youth, a prostatectomy in 1996 for prostate cancer, and lastly a laparoscopic transverse colectomy with primary colocolonic anastomosis with Dr. Hendrix on 12/18/2012. Mr. Coates denies any colonoscopy since 2012 but reports that his bowels have been very regular. [facility] Medical History History of intestine removal Lower limb pain, anterior Wound of right lower extremity Home Medications NK 01/12/23 [History Last Taken Unknown] Allergy/AdvReac Type Severity Reaction Status Date / Time No Known Allergies Allergy Verified 01/12/23 15:55 Social History Smoking Status: Former smoker ROS Constitutional Constitutional: Denies anorexia or change in weight Gastrointestinal Gastrointestinal: Reports abdominal pain, constipation and nausea; Denies vomiting Vital Signs Vital Signs Vital Signs: 01/12/23 15:55 Temperature 97 F L Temperature Source Temporal Pulse Rate 58 L Respiratory Rate 18 Blood Pressure 153/73 H Blood Pressure Mean 99 Pulse Ox 100 Oxygen Delivery Method Room Air Weight Weight: 126 lb 14.4 oz Body Mass Index (BMI) 18.1 Physical Exam Const alert and oriented x3 Constitutional Narrative: Appears anxious General Appearance: cooperative Resp normal respiratory effort GI GI Narrative: Minimally distended, patient tenses his abdomen with every attempt at exam, moderate tenderness with exam particularly in the bilateral lower quadrants and left lower quadrant greater than right lower quadrant Results Lab / Micro Data 01/12/23 16:35 01/12/23 16:35 Labs: Laboratory Results - last 24 hr 01/12/23 16:35: WBC 7.1, RBC 4.33 L, Hgb 14.1, Hct 43.0, MCV 99.3 H, MCH 32.6 H, MCHC 32.8, RDW Std Deviation 46.4 H, RDW Coeff of Enio 12.6, Plt Count 244, MPV 8.9, Immature Gran % (Auto) 0.300, Neut % (Auto) 60.2, Lymph % (Auto) 30.6, [place] % (Auto) 7.2, Eos % (Auto) 1.1, Baso % (Auto) 0.6, Absolute Neuts (auto) 4.2, Absolute Lymphs (auto) 2.16, Nucleated RBC % 0, Sodium 140, Potassium 4.3, Chloride 105, Carbon Dioxide 29.0, Anion Gap 6, BUN 20 H, Creatinine 0.97, Estim Creat Clear Calc 45.33, Est GFR (MDRD) Af Amer 94, Est GFR (MDRD) Non-Af 78, BUN/Creatinine Ratio 20.6 H, Glucose 126 H, Lactic Acid 3.6 H*, Calcium 9.2, Total Bilirubin 0.50, AST 26, ALT 35, Alkaline Phosphatase 95, Total Protein 6.7, Albumin 3.8, Globulin 2.9, Albumin/Globulin Ratio 1.3, Lipase 44 01/12/23 17:00: Urine Color Yellow, Urine Clarity Cloudy, Urine pH 8.0, Ur Specific Show Low 1.015, Urine Protein 15 H, Urine Glucose (UA) Normal, Urine Ketones 5 H, Urine Occult Blood Negative, Urine Nitrite Negative, Urine Bilirubin Negative, Urine Urobilinogen Normal, Ur Leukocyte Esterase 25 H, Urine RBC 0 SEEN, Urine WBC 0 SEEN, Ur Squamous Epith Cells 0 SEEN, Amorphous Sediment 1+, Urine Bacteria 0 SEEN, Urine Mucus 0 SEEN Radiology Impression Abdomen/Pelvis CT 01/12/23 18:02 IMPRESSION: 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 Clinical correlation and follow-up imaging would be useful. N.B. : The above Results were Read Back by Nathaniel Avitia MD to Juan Manuel Ann DO, and understanding confirmed on 01/12/2023 19:03:55 (ET). 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 Clinical correlation and follow-up imaging would be useful. N.B. : The above Results were Read Back by Nathaniel Avitia MD to Juan Manuel Ann DO, and understanding confirmed on 01/12/2023 19:03:55 (ET). 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 I suspect that he has an internal hernia component to this volvulus through the mesenteric defect of his prior colon resection 10 years ago. He has a bit of a difficult exam given his voluntary guarding before I even palpate his abdomen, but with the presence of tenderness, lactic acidosis, and his radiologic imaging I am recommending that we proceed for emergent exploration. I have discussed possible diagnostic laparoscopy versus exploratory laparotomy. Patient's operative report from November 2012 details an extensive period of lysis of adhesions and I have shared with Mr. Coates that I would like to minimize his time of ischemia to his bowel as well as his anesthetic time given his advanced age. Additionally I have informed him that he is at some risk for requiring a bowel resection with reanastomosis. He and his spouse informed understanding of this information and verbally he gives his assent to proceed as described. To this point emergency medicine has infused 1 L of IV fluids and I have requested that the continue patient on maintenance IV fluids as a means of boosting his blood pressure and maintaining perfusion. I have also requested placement of a nasogastric tube for gastric and small bowel decompression. Patient likely to require this tube post procedure. Charges/Coding Visit Charges Inpatient E&M: 46345 Init Hosp L3
[2023-01-12] MEDS: Lidocaine Jelly 2% 20 ML Syringe (URO-JET) 1 APPLIC TOPICAL (19:24)
--- NOTE | 2023-01-12 19:30 | RAD_ITS ---
STUDY: X-RAY - ABDOMEN/PELVIS REASON FOR EXAM: Male, 87 years old. bowel obstruction -- KUB with both diaphragms for NG/OG Verification TECHNIQUE: Single AP view of the abdomen / pelvis. COMPARISON: None. FINDINGS: Nasogastric tube with the tip in the left upper quadrant likely in the fundus of stomach. There is an unremarkable bowel gas pattern. The visualized liver, spleen and kidneys are grossly normal in size and morphology. Normal soft tissue structures. Normal visualized osseous structures. RAD/Abdomen Single View (Portable) IMPRESSION: Nasogastric tube with the tip in the left upper quadrant, likely in the fundus of stomach. No bowel obstruction. Electronically Signed: Nathaniel Avitia MD at 20:10 EDT ,
[2023-01-12] MEDS: 0.9% Normal Saline (1000mL) 1,000 ML 150 ML IV (20:03)
--- NOTE | 2023-01-12 20:18 | EKG12_ITS ---
Test Reason : PRE OP Blood Pressure : / mmHG Vent. Rate : 089 BPM Atrial Rate : 089 BPM P-R Int : 266 ms QRS Dur : 080 ms QT Int : 380 ms P-R-T Axes : 063 048 076 degrees QTc Int : 462 ms Sinus rhythm with 1st degree A-V block Otherwise normal ECG Confirmed by KEVEN KNOX, JUAN ANTONIO ([id number]), city editor ANDRE AUGUSTE ([id number]) on 01/14/2023 2:28:57 PM Referred By: CHANO Confirmed By:JUAN ANTONIO BACA MD
[2023-01-12] MEDS: Clindamycin 900 MG/50 ML BAG 75 MG IV (20:38)
[2023-01-12] MEDS: BUPIVACAINE LIPOSOME/PF 20 ML VIAL OPERA.SITE (22:04)
[2023-01-12] MEDS: Bupivacaine 0.25% 30 ML Vial (22:04)
[2023-01-12 22:23] LABS: Reflex Lactate? Y
--- NOTE | 2023-01-12 22:28 | OP.PCM_ITS ---
Report of Operation Date of Procedure: 01/12/23 Pre-Operative Diagnosis: 1. 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 Mesenteric vein thrombosis (superior mesenteric vein) Post-Operative Diagnosis: Same Surgery/Procedure Performed:: Diagnostic laparoscopy converted to exploratory laparotomy with reduction of internal hernia Description of Surgical Findings:: ? Chylous ascites ? Engorged small bowel lacteals in the mid jejunum ? Initial dusky appearance of small bowel but once small bowel was reduced from internal hernia opening it appeared normally perfused and peristalsis was observed Surgeon: Waqas Aguilar clinical education coordinator: Geogre Cunha Type of Anesthesia: General/Supplemental Anesthesiologist: Isacc Arriola Specimen's removed: None Drains: None Estimated Blood Loss (mL): 25 Description of Procedure: Patient arrived from the emergency department and written consents were confirmed. He was brought to the operating room where he was positioned supine on the operating room table. He underwent induction with general endotracheal anesthetic after replacement of an IV. He was administered preoperative antibiotics with 900 mg of clindamycin due to penicillin allergy. His nasogastric tube, placed by emergency medicine earlier in the evening, was placed to suction. A urinary catheter was placed with sterile technique. SCDs were placed on bilateral lower extremities. Patient's abdomen was prepped and draped in usual sterile fashion. A formal timeout followed to confirm patient and the procedure. The procedure was begun with an infraumbilical incision carried down to the fascia which was elevated between clamps and sharply incised. I was very careful to only incise the fascia and then the peritoneal layer was, likewise, elevated and sharply incised. Finger sweep confirmed peritoneal entry and a 12 mm Hdez balloon trocar was placed. The abdomen was inspected and revealed no inadvertent injury from our port placement. Abdomen was insufflated to a set pressure of 15 mmHg (later taken down to 12 mmHg). Further inspection of the peritoneum revealed several adhesions between the right colon and the lateral sidewall, but largely the anterior abdominal wall was free of adhesions. Therefore, I made the decision to perform a bilateral transversus abdominis plane block with a cocktail of Exparel, Marcaine, and saline (mixed 20 mL Exparel, 20 mL Marcaine, and 60 mL of saline) under laparoscopic visualization. Two additional trocars were placed in the right lower quadrant as 5 mm ports to facilitate instrument entry. The patient was then positioned Trendelenburg with the left side down and I began to inspect the peritoneum. Immediately I encountered chylous ascites with what appeared to be the small bowel herniating through a internal hernia defect that had been cre ated by the small bowel and adhesions to the anterior abdominal wall in the right lower quadrant. I gently placed traction on the bowel but only achieved partial reduction as the bowel remained somewhat stuck in place. In a broader examination of the bowel, a large portion appeared slightly malperfused with a purple color to the serosa. On reaching this observation I elected to immediately convert to an open procedure. A laparotomy incision was extended from approximately 4 cm above the umbilicus to an additional 6 cm inferiorly and was carried down through the abdominal wall fascia with the use of electrocautery taking care to maintain hemostasis as we proceeded. I initially attempted to find the proximal small bowel in the region of the ligament of Treitz but found this somewhat challenging to sort out initially due to adhesions from patient's prior surgery. Therefore I transitioned to a distal- to-proximal approach and identified the terminal ileum entering the cecum in the right lower quadrant and worked my way proximally. In doing so I was able to identify patient's most proximal small bowel loops that appeared to go towards the ligament of Treitz and an intervening segment with injected lacteals that represented the previously herniated small bowel. On closer inspection of this latter bowel the bowel was well perfused and grossly exhibited peristalsis. Satisfied with this appearance I once again returned to the terminal ileum and worked my way proximally this time taking care to ensure that the patient's small bowel mesentery was flat and not twisted. I also inspected for any signs of thrombosis within the mesentery. This inspection required me to irrigate the abdomen with several liters of warm sterile saline given the presence of the chylous ascites obscuring the view initially, but after this irrigation I found the bowel to be in satisfactory condition so it was gently returned to the peritoneum. I examined the patient's anastomosed colon in the region of the prior transverse colon but did not find any large mesenteric defects of concern and instead found the mesentery to be circumferentially, loosely adherent to the small bowel coming down from the region of the ligament of Treitz. I briefly considered performing adhesiolysis in the right lower quadrant, but it was not immediately apparent how patient's bowel had become entrapped as I was not able to find a clear mesenteric defect and it did seem to be rather a bowl effect with several adhesions between loops of ileum. Therefore, in the interest of not risking small bowel injury and to limit patient's time under anesthetic I decided to proceed with closure. I sought omentum to cover over the bowel but likely given the patient's lack of subcutaneous tissue generally, his omentum was rather attenuated and this approach was abandoned. I thus transitioned to closure of the abdominal fascia which was completed using running #1 PDS sutures x2 in a bidirectional fashion and tying them in the middle. Additional local anesthetic was infiltrated above the fascia. Several interrupted sutures were used to close the space between the patient's dermis and the fascia?thereby protecting the surface from patient's PDS suture more deeply. Lastly the skin was closed with a running subcuticular technique using 4-0 Monocryl. The two 5 mm port sites in the left lower quadrant were, likewise, closed with the same 4- 0 Monocryl suture in a subcuticular technique. A Mepilex silver dressing was applied and the patient was extubated and taken to PACU for ongoing recovery. It is of note that the Reynoso catheter was left in place for accurate's and outs monitoring overnight. Grafts/Implants Used: None Complications None Admit VTE Documentation VTE Mechan Device Prophylaxis: SCD's Procedures Digestive 40xxx-49xxx: [id number] XLap, Exploration of abdomen
[2023-01-13] VITALS (7 sets, daily range): BP systolic 113–124; BP diastolic 56–66; PULSE 56–80; RESP 16–18; TEMP 36.6–37.2; O2SAT 94–97
[2023-01-13] MEDS: Lactated Ringers 1,000 ML 125 ML IV ×4 (00:01→22:52)
[2023-01-13 00:26] LABS: Lactic Acid 2.7 mmol/L (0.4-1.9)
[2023-01-13 06:55] LABS: Absolute Lymphocyte Count 0.64 X10^3/uL (0.83-4.51); Absolute Neutrophil Count 6.9 X10^3/uL (2.0-7.7); Basophil# 0.01 X10^3/uL; Basophil% 0.1 % (0-1); Hematocrit 36.3 % (40-54); Lymphocyte # 0.64 X10^3/ul (0.83-4.51); Lymphocyte % 7.8 % (19-41); Mean Corp Hgb Conc 33.1 g/dL (32-36); Mean Corpuscular Hgb 33.4 pg (27.0-32.0); Mean Corpuscular Volume 101.1 fL (80-94); Mean Platelet Vol. 8.6 fl (6.2-12.0); Monocyte# 0.58 X10^3/uL; Monocyte% 7.1 % (0-10); NRBC Flagged by Analyzer 0 % (0-5); Neutrophil # 6.93 X10^3/uL (2.7-7.7); Neutrophil % 84.4 % (47-70); Platelet Count 158 K/mm3 (150-450); RBC Distribution Width CV 12.7 % (11.6-14.6); RBC Distribution Width SD 47.2 fl (35.1-43.9); Red Blood Count 3.59 M/mm3 (4.6-6.2); White Blood Count 8.2 K/mm3 (4.4-11.0)
[2023-01-13 07:29] LABS: Anion Gap 5 (5-15); BUN 19 mg/dL (7-18); BUN/Creat Ratio 23.5 RATIO (10-20); Calcium,Total 7.7 mg/dL (8.5-10.1); Chloride 113 mmol/L (98-107); Creatinine, Serum 0.81 mg/dL (0.70-1.30); EST Glomerular Filtration Rate 97 mL/min (>60); Est Glom Filt Rate - Afr Amer 117 mL/min (>60); Glucose 96 mg/dL (74-106); Magnesium 2.2 mg/dL (1.6-2.6); Phosphorus 2.6 mg/dL (2.5-4.9); Sodium Level 143 mmol/L (136-145)
[2023-01-13] MEDS: HYDROmorphone 0.5 MG/0.5 ML SYRINGE IV (07:46)
--- NOTE | 2023-01-13 08:53 | PCM.PN.SRG ---
Subjective Subjective Patient seen and examined during AM rounds. He reports that he is feeling very well. He denies nearly as much abdominal pain and states that this is only his incision that is mildly tender. He states that he is eager for a drink of water. Objective Data Objective Data Vital Signs: Vital Signs Temp Pulse Resp BP Pulse Ox O2 Del Method O2 Flow Rate 99.0 F 78 16 118/56 L 97 Room Air 2 01/13/23 06:31 01/13/23 06:31 01/13/23 06:31 01/13/23 06:31 01/13/23 06:31 01/13/23 06:31 01/12/23 23:16 Oxygen Flow Rate (L/min) 2 Oxygen Delivery Method Room Air Weight: 120 lb 2.431 oz Body Mass Index (BMI) 17.2 Intake & Output: Intake and Output for Last 24 Hours 01/11/23 01/12/23 01/13/23 23:59 23:59 23:59 Intake Total 1050 / 1642.5 1400.83 / 1400.83 Output Total 275 / 275 300 / 300 Balance 775 / 1367.5 1100.83 / 1100.83 Lab / Micro Data 01/13/23 06:49 01/13/23 06:49 Labs: Laboratory Results - last 24 hr 01/12/23 16:35: WBC 7.1, RBC 4.33 L, Hgb 14.1, Hct 43.0, MCV 99.3 H, MCH 32.6 H, MCHC 32.8, RDW Std Deviation 46.4 H, RDW Coeff of Enio 12.6, Plt Count 244, MPV 8.9, Immature Gran % (Auto) 0.300, Neut % (Auto) 60.2, Lymph % (Auto) 30.6, [place] % (Auto) 7.2, Eos % (Auto) 1.1, Baso % (Auto) 0.6, Absolute Neuts (auto) 4.2, Absolute Lymphs (auto) 2.16, Nucleated RBC % 0, Sodium 140, Potassium 4.3, Chloride 105, Carbon Dioxide 29.0, Anion Gap 6, BUN 20 H, Creatinine 0.97, Estim Creat Clear Calc 45.33, Est GFR (MDRD) Af Amer 94, Est GFR (MDRD) Non-Af 78, BUN/Creatinine Ratio 20.6 H, Glucose 126 H, Lactic Acid 3.6 H*, Calcium 9.2, Total Bilirubin 0.50, AST 26, ALT 35, Alkaline Phosphatase 95, Total Protein 6.7, Albumin 3.8, Globulin 2.9, Albumin/Globulin Ratio 1.3, Lipase 44 01/12/23 17:00: Urine Color Yellow, Urine Clarity Cloudy, Urine pH 8.0, Ur Specific [place] 1.015, Urine Protein 15 H, Urine Glucose (UA) Normal, Urine Ketones 5 H, Urine Occult Blood Negative, Urine Nitrite Negative, Urine Bilirubin Negative, Urine Urobilinogen Normal, Ur Leukocyte Esterase 25 H, Urine RBC 0 SEEN, Urine WBC 0 SEEN, Ur Squamous Epith Cells 0 SEEN, Amorphous Sediment 1+, Urine Bacteria 0 SEEN, Urine Mucus 0 SEEN 01/12/23 23:00: Lactic Acid 2.7 H* 01/13/23 06:49: WBC 8.2, RBC 3.59 L, Hgb 12.0 L, Hct 36.3 L, MCV 101.1 H, MCH 33.4 H, MCHC 33.1, RDW Std Deviation 47.2 H, RDW Coeff of Enio 12.7, Plt Count 158, MPV 8.6, Immature Gran % (Auto) 0.600, Neut % (Auto) 84.4 H, Lymph % (Auto) 7.8 L, Stark % (Auto) 7.1, Eos % (Auto) 0.0, Baso % (Auto) 0.1, Absolute Neuts (auto) 6.9, Absolute Lymphs (auto) 0.64 L, Nucleated RBC % 0, Sodium 143, Potassium 4.0, Chloride 113 H, Carbon Dioxide 25.0, Anion Gap 5, BUN 19 H, Creatinine 0.81, Estim Creat Clear Calc 51.40, Est GFR (MDRD) Af Amer 117, Est GFR (MDRD) Non-Af 97, BUN/Creatinine Ratio 23.5 H, Glucose 96, Calcium 7.7 L, Phosphorus 2.6, Magnesium 2.2 Radiography Diagnostic Testing: Radiology Impression Abdomen/Pelvis CT 01/12/23 18:02 IMPRESSION: 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 Clinical correlation and follow-up imaging would be useful. N.B. : The above Results were Read Back by Nathaniel Avitia MD to Juan Manuel Ann DO, and understanding confirmed on 01/12/2023 19:03:55 (ET). 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 Clinical correlation and follow-up imaging would be useful. N.B. : The above Results were Read Back by Nathaniel Avitia MD to Juan Manuel Ann DO, and understanding confirmed on 01/12/2023 19:03:55 (ET). Electronically Signed: Nathaniel Avitia MD at 19:05 EDT , KUB X-Ray 01/12/23 19:30 IMPRESSION: Nasogastric tube with the tip in the left upper quadrant, likely in the fundus of stomach. No bowel obstruction. Electronically Signed: Nathaniel Avitia MD at 20:10 EDT Reading Location ID and State: [id number] / [place] [address] , Service support , Physical Exam Const oriented x3 and no apparent distress Resp normal respiratory effort GI GI Narrative: Nasogastric tube in place with thin brown?green bilious output of minimal volume. Patient with some mild voluntary guarding on exam but is nondistended, soft, and appropriately tender to palpation just about his incisions?primarily in the left lower abdominal quadrant. Incisions remain covered with operative dressings. 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 Overall he is controlled for pain and his abdominal exam is appropriate with decreased discomfort from his presentation. He also noted to have a improvement in his lactic acid from preop on last evening's labs. This morning his urine output is reviewed and has been reported at 1.38 mL/kg/h which suggests adequate resuscitation. Plan: Neuro: As needed Dilaudid, add scheduled Toradol 15 mg every 6 hours Pulm/CV: Incentive spirometer, maintain aspiration precautions FEN/GI: Continue to monitor daily electrolytes, continue nasogastric tube to low intermittent wall suction, stress ulcer prophylaxis with Protonix, monitor for return of bowel function, repeat lactic acid : Discontinue Reynoso catheter and follow for spontaneous void Heme/ID: CBC shows slight downtrend in hemoglobin but this could be partially hemodilutional. Given patient's concern for possible superior mesenteric vein thrombus, will start subcutaneous heparin today 5000 units 3 times daily. We will continue to trend CBC Endo: No current issues Proph: Ambulate as tolerated, aspiration precautions, heparin 5000 units 3 times daily Dispo: Continue inpatient care Charges/Coding Visit Charges Inpatient E&M: 68979 Subs Hosp L2
[2023-01-13] MEDS: Pantoprazole Sodium 40 MG in 0.9% Normal Saline (100mL MB+) 100 ML 330 MG IV (09:31)
[2023-01-13 11:32] LABS: Lactic Acid 0.9 mmol/L (0.4-1.9)
[2023-01-13] MEDS: Ketorolac 30 MG/ML Syringe 15 MG IV ×3 (12:56→22:56)
--- NOTE | 2023-01-13 18:29 | NURSING ---
1820 patient voided 75cc @1745. bladder scan done at 1820. noted 150cc on bladder scan. will notify Dr eJff Cabrera RN
[2023-01-13] MEDS: BENZOCAINE/MENTHOL 1 LOZENGE MUCOUS MEM ×2 (19:08→23:04)
--- NOTE | 2023-01-13 19:16 | NURSING ---
1840 Dr Aguilar ordered to reassess bladder/void in 2 hours. encourage patient to void and then bladder scan. Linwood Cabrera RN
[2023-01-13] MEDS: Heparin Injection (Vial) 5,000 UNIT/ML VIAL 5000 UNIT SC (22:56)
[2023-01-14] MEDS: BENZOCAINE/MENTHOL 1 LOZENGE MUCOUS MEM (05:05)
[2023-01-14] MEDS: Lactated Ringers 1,000 ML 125 ML IV ×3 (05:05→23:04)
[2023-01-14] MEDS: Heparin Injection (Vial) 5,000 UNIT/ML VIAL 5000 UNIT SC ×3 (05:07→20:41)
[2023-01-14] MEDS: Ketorolac 30 MG/ML Syringe 15 MG IV ×4 (05:07→23:04)
[2023-01-14 05:16] VITALS: BP 131/68; PULSE 64; RESP 16; TEMP 36.8; O2SAT 95
[2023-01-14 06:23] LABS: Absolute Lymphocyte Count 0.81 X10^3/uL (0.83-4.51); Absolute Neutrophil Count 4.1 X10^3/uL (2.0-7.7); Basophil# 0.02 X10^3/uL; Basophil% 0.4 % (0-1); Eosinophil# 0.04 X10^3/uL; Eosinophils% 0.7 % (0-5); Hematocrit 34.3 % (40-54); Lymphocyte # 0.81 X10^3/ul (0.83-4.51); Mean Corp Hgb Conc 32.1 g/dL (32-36); Mean Corpuscular Hgb 33.3 pg (27.0-32.0); Mean Corpuscular Volume 103.9 fL (80-94); Mean Platelet Vol. 8.7 fl (6.2-12.0); Monocyte# 0.43 X10^3/uL; NRBC Flagged by Analyzer 0 % (0-5); Neutrophil # 4.05 X10^3/uL (2.7-7.7); Neutrophil % 75.2 % (47-70); Platelet Count 127 K/mm3 (150-450); RBC Distribution Width CV 12.7 % (11.6-14.6); RBC Distribution Width SD 48.6 fl (35.1-43.9); White Blood Count 5.4 K/mm3 (4.4-11.0)
[2023-01-14 06:48] LABS: Anion Gap 4 (5-15); BUN 29 mg/dL (7-18); BUN/Creat Ratio 38.1 RATIO (10-20); Chloride 116 mmol/L (98-107); Creatinine, Serum 0.76 mg/dL (0.70-1.30); EST Glomerular Filtration Rate 103 mL/min (>60); Est Glom Filt Rate - Afr Amer 125 mL/min (>60); Estimated Creatinine Clearance 41.63 ml/min; Glucose 66 mg/dL (74-106); Magnesium 2.3 mg/dL (1.6-2.6); Phosphorus 2.2 mg/dL (2.5-4.9); Potassium 3.7 mmol/L (3.5-5.1); Sodium Level 144 mmol/L (136-145)
[2023-01-14 09:54] VITALS: BP 141/71; PULSE 70; RESP 16; TEMP 37.1; O2SAT 97
[2023-01-14] MEDS: Potassium Phosphate 15 MM in 0.9% Normal Saline (250mL Bag) 250 ML 125 MM IV (10:00)
--- NOTE | 2023-01-14 10:05 | CASEMGMT ---
RN KAIN Assessment: Face to Face with pt for initial transition planning/care coordination assessment. RN KAIN introduced self and role at [facility], pt voices understanding and consents to assessment. Pt is A&O x4 and answers all questions appropriately at this time. Pt sitting up in chair with NG in and nurse present in room. Care providers, pharmacy, and demographics verified/updated. Admitting Dx: gastric volvus PCP:[facility] Specialists: denies [facility]erred [facility] Benef[facility]: yes LNOK: Shelby Muir, Living Arrangements: Pt lives with in a mobile home with 4 steps to enter with a rail on both sides. Pt reports he is typically I in ADL's and denies concerns at home. Transportation: Pt drives self and denies concerns with transportation. DME:[facility] HHC/SNF:Pt denies hx of Pt states no concerns with going home at time of dc. Pt states no further concerns/needs. CM to follow. Advised pt to ask CM if any further question/concerns/needs arise, voices understanding. Pt Goal: Home Plan: Home
--- NOTE | 2023-01-14 11:46 | PN.SURG_ITS ---
Subjective Subjective Patient seen and examined during AM rounds. He is found resting in bed. He does report that he had at least 3 episodes of flatus overnight. He also expresses an appetite this morning. His abdominal discomfort is minimal. Objective Data Objective Data Vital Signs: Vital Signs Temp Pulse Resp BP Pulse Ox O2 Del Method O2 Flow Rate 98.7 F 70 16 141/71 H 97 Room Air 2 01/14/23 09:54 01/14/23 09:54 01/14/23 09:54 01/14/23 09:54 01/14/23 09:54 01/14/23 09:54 01/12/23 23:16 Oxygen Flow Rate (L/min) 2 Oxygen Delivery Method Room Air Weight: 120 lb 2.431 oz Body Mass Index (BMI) 17.2 Intake & Output: Intake and Output for Last 24 Hours 01/12/23 01/13/23 01/14/23 23:59 23:59 23:59 Intake Total 1050 / 1642.5 3454.16 / 3454.16 817.08 / 817.08 Output Total 275 / 275 1025 / 1025 100 / 100 Balance 775 / 1367.5 2429.16 / 2429.16 717.08 / 717.08 Medical Nutrition Assessment Dietitian: Malnutrition Criteria Met Start: 01/13/23 10:41 Freq: Status: Active Protocol: Document 01/13/23 10:41 AG (Rec: 01/13/23 10:41 AG Desktop) Nutrition Malnutrition Evidence of Malnutrition Exists Yes Malnutrition (severe): Chronic Evidenced By Suboptimal Energy Intake ( Severe),Weight Loss (Severe), Physical Changes (Severe) Clinical Problem Chronic Disease or Condition Related Malnutrition Etiology severe malnutrition related to inadequate energy intake Signs/Symptoms as evidenced by estimated PO intake meeting <75% of estimated protein/calorie needs > 3 months, unintentional ~10#/8% wt loss x 3-4 months, severe muscle wasting/fat loss per physical exam, BMI 17.2 Status Active Problem Recommendation Dietitian Recommendations/Changes recommend advance diet as tolerated to transitional; ensure w/ medpass when diet advanced although anticipate pt may refuse oral nutrition supplements. Cannot exclude need for parenteral nutrition if unable to advance PO diet. Lab / Micro Data 01/14/23 06:09 01/14/23 06:09 Labs: Laboratory Results - last 24 hr 01/14/23 06:09: WBC 5.4, RBC 3.30 L, Hgb 11.0 L, Hct 34.3 L, MCV 103.9 H, MCH 33.3 H, MCHC 32.1, RDW Std Deviation 48.6 H, RDW Coeff of Enio 12.7, Plt Count 127 L, MPV 8.7, Immature Gran % (Auto) 0.700, Neut % (Auto) 75.2 H, Lymph % (Auto) 15.0 L, [place] % (Auto) 8.0, Eos % (Auto) 0.7, Baso % (Auto) 0.4, Absolute Neuts (auto) 4.1, Absolute Lymphs (auto) 0.81 L, Nucleated RBC % 0, Sodium 144, Potassium 3.7, Chloride 116 H, Carbon Dioxide 24.0, Anion Gap 4 L, BUN 29 H, Creatinine 0.76, Estim Creat Clear Calc 41.63, Est GFR (MDRD) Af Amer 125, Est GFR (MDRD) Non-Af 103, BUN/Creatinine Ratio 38.1 H, Glucose 66 L, Calcium 8.0 L, Phosphorus 2.2 L, Magnesium 2.3 Physical Exam Const oriented x3 and no apparent distress Resp normal respiratory effort GI GI Narrative: Nasogastric tube in place with scant output but remains slightly bilious in character. Abdomen is nondistended and mildly tender to palpation in the right lower quadrant. Operative dressing remains intact without drainage. 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 Overall he remains controlled for pain and his abdominal exam is appropriate with only slight discomfort in his right lower quadrant. His nasogastric tube output has been minimal and he reports some early signs of return of bowel function with multiple episodes of flatus but nothing this morning. Therefore I have recommended that we pursue a clamp trial and if he passes this trial we will plan to discontinue his NG tube and begin sips of clears. Further, I held a discussion with him on the management of his mesenteric vein thrombosis and discussed full anticoagulation versus prophylactic treatment and suggested that at present we might pursue the latter given the risks of bleeding with the former and the absence of any signs of total vascular occlusion from this thrombus. He expresses agreement. Plan: Neuro: As needed Dilaudid, discontinue Toradol given slight thrombocytopenia Pulm/CV: Incentive spirometer, maintain aspiration precautions FEN/GI: Continue to monitor daily electrolytes, continue nasogastric tube to low intermittent wall suction but perform clamp trial today, stress ulcer prophylaxis with Protonix, monitor for return of bowel function : Appears to be voiding spontaneously without issue and had nearly 1 L of urine output yesterday Heme/ID: CBC shows further slight downtrend in hemoglobin but this could be partially hemodilutional. Given patient's concern for possible superior mesenteric vein thrombus, will continue subcutaneous heparin today 5000 units 3 times daily?it is noted that patient has mild thrombocytopenia so I will monitor closely for any signs of HIT. We will continue to trend CBC Endo: No current issues Proph: Ambulate as tolerated, aspiration precautions, heparin 5000 units 3 times daily Dispo: Continue inpatient care Charges/Coding Visit Charges Inpatient E&M: 73036 Subs Hosp L2
[2023-01-14] MEDS: Pantoprazole Sodium 40 MG in 0.9% Normal Saline (100mL MB+) 100 ML 330 MG IV (12:51)
[2023-01-14 14:50] VITALS: BP 153/75; PULSE 62; RESP 16; TEMP 36.8; O2SAT 100
[2023-01-14 20:35] VITALS: BP 134/70; PULSE 56; RESP 16; TEMP 36.7; O2SAT 99
[2023-01-15 03:00] VITALS: BP 128/63; PULSE 58; RESP 15; TEMP 36.7; O2SAT 100
[2023-01-15] MEDS: Ketorolac 30 MG/ML Syringe 15 MG IV ×3 (05:11→17:40)
[2023-01-15] MEDS: Lactated Ringers 1,000 ML 125 ML IV (06:56)
[2023-01-15 07:00] LABS: Absolute Lymphocyte Count 0.58 X10^3/uL (0.83-4.51); Absolute Neutrophil Count 2.4 X10^3/uL (2.0-7.7); Basophil# 0.02 X10^3/uL; Basophil% 0.6 % (0-1); Eosinophil# 0.06 X10^3/uL; Eosinophils% 1.8 % (0-5); Hematocrit 32.4 % (40-54); Hemoglobin 10.6 g/dL (13.0-16.5); Lymphocyte # 0.58 X10^3/ul (0.83-4.51); Lymphocyte % 17.3 % (19-41); Mean Corp Hgb Conc 32.7 g/dL (32-36); Mean Corpuscular Hgb 33.1 pg (27.0-32.0); Mean Corpuscular Volume 101.3 fL (80-94); Mean Platelet Vol. 8.6 fl (6.2-12.0); Monocyte# 0.31 X10^3/uL; Monocyte% 9.3 % (0-10); NRBC Flagged by Analyzer 0 % (0-5); Neutrophil # 2.37 X10^3/uL (2.7-7.7); Neutrophil % 70.7 % (47-70); POSITIVE DIFFERENTIAL YES; Platelet Count 124 K/mm3 (150-450); RBC Distribution Width CV 12.3 % (11.6-14.6); RBC Distribution Width SD 46.1 fl (35.1-43.9); White Blood Count 3.4 K/mm3 (4.4-11.0)
[2023-01-15 07:05] LABS: Differential Indicated SCAN CRITERIA MET
[2023-01-15 07:33] LABS: Anion Gap 4 (5-15); BUN 37 mg/dL (7-18); BUN/Creat Ratio 53.5 RATIO (10-20); Calcium,Total 7.9 mg/dL (8.5-10.1); Chloride 114 mmol/L (98-107); Creatinine, Serum 0.69 mg/dL (0.70-1.30); EST Glomerular Filtration Rate 116 mL/min (>60); Est Glom Filt Rate - Afr Amer 140 mL/min (>60); Estimated Creatinine Clearance 41.63 ml/min; Glucose 84 mg/dL (74-106); Magnesium 2.1 mg/dL (1.6-2.6); Phosphorus 2.6 mg/dL (2.5-4.9); Potassium 3.8 mmol/L (3.5-5.1); Sodium Level 143 mmol/L (136-145)
[2023-01-15 07:36] VITALS: BP 128/67; PULSE 55; RESP 14; TEMP 36.7; O2SAT 100
--- NOTE | 2023-01-15 08:08 | PN.SURG_ITS ---
<Statement entered by Waqas Aguilar MD - 01/15/23 16:22> I have personally performed a face to face assessment of the patient and have reviewed the [place] Note. Documented by User: Dr. Waqas Aguilar MD 01/15/23 08:09 Objective Data Objective Data Vital Signs: Vital Signs Temp Pulse Resp BP Pulse Ox O2 Del Method O2 Flow Rate 98.0 F 55 L 14 128/67 H 100 Room Air 2 01/15/23 07:36 01/15/23 07:36 01/15/23 07:36 01/15/23 07:36 01/15/23 07:36 01/15/23 07:36 01/12/23 23:16 Oxygen Flow Rate (L/min) 2 Oxygen Delivery Method Room Air Weight: 120 lb 2.431 oz Body Mass Index (BMI) 17.2 Intake & Output: Intake and Output for Last 24 Hours 01/13/23 01/14/23 01/15/23 23:59 23:59 23:59 Intake Total 3454.16 / 3454.16 3406.66 / 3686.66 1413.33 / 1413.33 Output Total 1025 / 1025 100 / 100 Balance 2429.16 / 2429.16 3306.66 / 3586.66 1413.33 / 1413.33 Medical Nutrition Assessment Dietitian: Malnutrition Criteria Met Start: 01/13/23 10:41 Freq: Status: Active Protocol: Document 01/13/23 10:41 AG (Rec: 01/13/23 10:41 AG Desktop) Nutrition Malnutrition Evidence of Malnutrition Exists Yes Malnutrition (severe): Chronic Evidenced By Suboptimal Energy Intake ( Severe),Weight Loss (Severe), Physical Changes (Severe) Clinical Problem Chronic Disease or Condition Related Malnutrition Etiology severe malnutrition related to inadequate energy intake Signs/Symptoms as evidenced by estimated PO intake meeting <75% of estimated protein/calorie needs > 3 months, unintentional ~10#/8% wt loss x 3-4 months, severe muscle wasting/fat loss per physical exam, BMI 17.2 Status Active Problem Recommendation Dietitian Recommendations/Changes recommend advance diet as tolerated to transitional; ensure w/ medpass when diet advanced although anticipate pt may refuse oral nutrition supplements. Cannot exclude need for parenteral nutrition if unable to advance PO diet. Lab / Micro Data 01/15/23 06:50 01/15/23 06:50 Labs: Laboratory Results - last 24 hr 01/15/23 06:50: WBC 3.4 L, RBC 3.20 L, Hgb 10.6 L, Hct 32.4 L, MCV 101.3 H, MCH 33.1 H, MCHC 32.7, RDW Std Deviation 46.1 H, RDW Coeff of Enio 12.3, Plt Count 124 L, MPV 8.6, Immature Gran % (Auto) 0.300, Neut % (Auto) 70.7 H, Lymph % (Auto) 17.3 L, [place] % (Auto) 9.3, Eos % (Auto) 1.8, Baso % (Auto) 0.6, Absolute Neuts (auto) 2.4, Absolute Lymphs (auto) 0.58 L, Nucleated RBC % 0, Sodium 143, Potassium 3.8, Chloride 114 H, Carbon Dioxide 25.0, Anion Gap 4 L, BUN 37 H, Creatinine 0.69 L, Estim Creat Clear Calc 41.63, Est GFR (MDRD) Af Amer 140, Est GFR (MDRD) Non-Af 116, BUN/Creatinine Ratio 53.5 H, Glucose 84, Calcium 7.9 L, Phosphorus 2.6, Magnesium 2.1 Assessment & Plan Assessment/Plan (1) Small bowel volvulus: Documented by User: Sade KUMAR PANikkieC 01/15/23 09:22 Subjective Subjective Patient is an 87 y/o M I am following in conjunction with Dr. Aguilar s/p Diagnostic laparoscopy converted to exploratory laparotomy with reduction of internal hernia on 01/12/23. Patient tolerated the procedure well. He continues to pass flatus however no bowel movements. Patient is optimistic that today will be the day for bowel function to occur. Patient notes his urine flow has become stronger. He denies nausea, vomiting, fever. He is tolerating a clear liquid diet without concerns. He is feeling hungry and would like to try more solid foods. Objective Data Lab / Micro Data 01/15/23 06:50 01/15/23 06:50 Physical Exam GI normal to inspection, nondistended, normoactive bowel sounds GI Narrative: Incisions c/d/i. No erythema or infections noted. Op-sites were removed. Silver dressing remains in place. Assessment & Plan Assessment/Plan (1) Small bowel volvulus: PLAN: Increase diet to full liquids Decrease IV fluids Continue ambulating and sitting in chair with meals Await bowel movement to advance diet to regular Hopeful discharge to home tomorrow Charges/Coding Visit Charges Inpatient E&M: 23280 Subs Hosp L1 (No charge; post-op)
[2023-01-15] MEDS: Pantoprazole Sodium 40 MG in 0.9% Normal Saline (100mL MB+) 100 ML 330 MG IV (11:09)
[2023-01-15] MEDS: 0.9% Saline Lock 10 ML Syringe IV ×2 (11:14→17:41)
[2023-01-15] MEDS: Heparin Injection (Vial) 5,000 UNIT/ML VIAL 5000 UNIT SC (13:49)
[2023-01-15 14:00] VITALS: BP 124/69; PULSE 63; RESP 14; TEMP 36.3; O2SAT 97
[2023-01-15] MEDS: Lactated Ringers 1,000 ML 75 ML IV (17:38)
[2023-01-15 22:18] VITALS: BP 136/82; PULSE 57; RESP 18; TEMP 36.5; O2SAT 94
[2023-01-16] MEDS: Ketorolac 30 MG/ML Syringe 15 MG IV ×2 (01:16→05:47)
[2023-01-16 05:45] VITALS: BP 147/46; PULSE 86; RESP 18; TEMP 36.4; O2SAT 95
[2023-01-16] MEDS: Lactated Ringers 1,000 ML 75 ML IV (05:46)
[2023-01-16] MEDS: 0.9% Saline Lock 10 ML Syringe IV ×2 (05:50→09:55)
--- NOTE | 2023-01-16 06:42 | PN.SURG_ITS ---
Subjective Subjective Patient seen and examined during AM rounds. He confirms that he is still passing flatus. He denies any significant abdominal pain. Unfortunately also denies any bowel movements overnight and insists that he simply needs fibrous food to have a bowel movement. He also wishes to know whether any imaging can be done to confirm that everything is okay and side Objective Data Objective Data Vital Signs: Vital Signs Temp Pulse Resp BP Pulse Ox O2 Del Method O2 Flow Rate 97.5 F L 86 18 147/46 H 95 Room Air 2 01/16/23 05:45 01/16/23 05:45 01/16/23 05:45 01/16/23 05:45 01/16/23 05:45 01/16/23 05:55 01/12/23 23:16 Oxygen Flow Rate (L/min) 2 Oxygen Delivery Method Room Air Weight: 120 lb 2.431 oz Body Mass Index (BMI) 17.2 Intake & Output: Intake and Output for Last 24 Hours 01/14/23 01/15/23 01/16/23 23:59 23:59 23:59 Intake Total 3406.66 / 3686.66 2791.66 / 2791.66 910 / 910 Output Total 100 / 100 Balance 3306.66 / 3586.66 2791.66 / 2791.66 910 / 910 Medical Nutrition Assessment Dietitian: Malnutrition Criteria Met Start: 01/13/23 10:41 Freq: Status: Active Protocol: Document 01/13/23 10:41 AG (Rec: 01/13/23 10:41 AG Desktop) Nutrition Malnutrition Evidence of Malnutrition Exists Yes Malnutrition (severe): Chronic Evidenced By Suboptimal Energy Intake ( Severe),Weight Loss (Severe), Physical Changes (Severe) Clinical Problem Chronic Disease or Condition Related Malnutrition Etiology severe malnutrition related to inadequate energy intake Signs/Symptoms as evidenced by estimated PO intake meeting <75% of estimated protein/calorie needs > 3 months, unintentional ~10#/8% wt loss x 3-4 months, severe muscle wasting/fat loss per physical exam, BMI 17.2 Status Active Problem Recommendation Dietitian Recommendations/Changes recommend advance diet as tolerated to transitional; ensure w/ medpass when diet advanced although anticipate pt may refuse oral nutrition supplements. Cannot exclude need for parenteral nutrition if unable to advance PO diet. Lab / Micro Data 01/15/23 06:50 01/15/23 06:50 Labs: Laboratory Results - last 24 hr 01/15/23 06:50: WBC 3.4 L, RBC 3.20 L, Hgb 10.6 L, Hct 32.4 L, MCV 101.3 H, MCH 33.1 H, MCHC 32.7, RDW Std Deviation 46.1 H, RDW Coeff of Enio 12.3, Plt Count 124 L, MPV 8.6, Immature Gran % (Auto) 0.300, Neut % (Auto) 70.7 H, Lymph % (Auto) 17.3 L, [place] % (Auto) 9.3, Eos % (Auto) 1.8, Baso % (Auto) 0.6, Absolute Neuts (auto) 2.4, Absolute Lymphs (auto) 0.58 L, Nucleated RBC % 0, Differential Comment COMMENT, Diff Path Review July foll, Sodium 143, Potassium 3.8, Chloride 114 H, Carbon Dioxide 25.0, Anion Gap 4 L, BUN 37 H, Creatinine 0.69 L, Estim Cr eat Clear Calc 41.63, Est GFR (MDRD) Af Amer 140, Est GFR (MDRD) Non-Af 116, BUN/Creatinine Ratio 53.5 H, Glucose 84, Calcium 7.9 L, Phosphorus 2.6, Magne sium 2.1 Physical Exam Const oriented x3 Constitutional Narrative: Patient is mildly anxious Resp normal respiratory effort GI GI Narrative: Mildly distended, operative site looks appropriate with Steri-Strips still intact. Patient has some flinching with exam but denies any tenderness and confirms that he is simply touchy. Assessment & Plan Assessment/Plan (1) Small bowel volvulus: PLAN: Patient continues to do well postoperative day 4 with ongoing flatus. We are still waiting a bowel movement. He denies any intolerance of a diet. Plan for today: ? Increase diet to transitional diet ? Obtain KUB ?Further decrease IV fluids ? Continue enoxaparin ?Continue ambulating and sitting in chair with meals ?Await bowel movement to advance diet to regular
[2023-01-16] MEDS: Ensure Plus High Protein 120 ML LIQUID PO ×3 (07:41→17:34)
--- NOTE | 2023-01-16 07:55 | RAD_ITS ---
INDICATION: constipation s/p ex lap EXAMINATION/TECHNIQUE: X-RAY - XR Abdomen 1 View COMPARISON: January 12, 2023 FINDINGS: BOWEL GAS PATTERN: There is a moderate amount of gas within prominent loops of colon. No bowel or stomach distention. FREE AIR: Not assessed on a single supine view. ORGANOMEGALY: Not seen. CALCIFICATIONS: No abnormal calcifications observed. LOWER CHEST: No acute pathology. BONES AND SOFT TISSUES: There are surgical clips projecting over the lower pelvis. There are degenerative changes of the lumbar spine. RAD/Abdomen Single View IMPRESSION: Moderate amount of gas within prominent loops of colon. Electronically Signed: Lexy Celaya MD at 8:10 EDT ,
[2023-01-16] MEDS: Pantoprazole Sodium 40 MG in 0.9% Normal Saline (100mL MB+) 100 ML 330 MG IV (09:55)
[2023-01-16] MEDS: Enoxaparin 30 MG/0.3 ML Syringe SC (10:01)
[2023-01-16] MEDS: Ibuprofen 400 MG Tablet PO ×2 (11:38→17:34)
[2023-01-16 12:25] VITALS: BP 144/78; PULSE 74; RESP 16; TEMP 36.6; O2SAT 98
[2023-01-16 12:56] LABS: Pathologist Review Reviewed
[2023-01-16 17:53] VITALS: BP 151/92; PULSE 66; RESP 16; TEMP 36.7; O2SAT 98
[2023-01-16 20:32] VITALS: BP 127/70; PULSE 60; RESP 14; TEMP 37.1; O2SAT 97
[2023-01-17] MEDS: Ibuprofen 400 MG Tablet PO (00:56)
[2023-01-17 02:26] VITALS: BP 141/72; PULSE 57; RESP 14; TEMP 36.7; O2SAT 99
[2023-01-17] MEDS: Lactated Ringers 1,000 ML 25 ML IV (05:24)
[2023-01-17] MEDS: Ensure Plus High Protein 120 ML LIQUID PO (08:35)
[2023-01-17 08:52] VITALS: BP 153/78; PULSE 66; RESP 16; TEMP 36.3; O2SAT 98
[2023-01-17] MEDS: Enoxaparin 30 MG/0.3 ML Syringe SC (09:39)
[2023-01-17] MEDS: Pantoprazole Sodium 40 MG in 0.9% Normal Saline (100mL MB+) 100 ML 330 MG IV (09:39)
[2023-01-17] MEDS: Furosemide 20 MG/2 ML VIAL IV (09:39)
[2023-01-17 11:23] VITALS: BP 143/76; PULSE 104; RESP 16; TEMP 36.3; O2SAT 95
--- NOTE | 2023-01-17 12:08 | PCM.DC.SUM ---
Providers Date of Admission: 01/12/23 Primary Care Physician: Dr. Eduardo Calderon MD Reason For Visit: GASTRIC VOLVUS Diagnosis Discharge Diagnosis (1) Small bowel volvulus: Status: Acute Code(s): K56.2 - Volvulus Plan: Increase diet to full liquids Decrease IV fluids Continue ambulating and sitting in chair with meals Await bowel movement to advance diet to regular Hopeful discharge to home tomorrow Medications at Discharge Home Medications enoxaparin 30 mg/0.3 mL subcutaneous syringe 30 mg (0.3 mL) subcut DAILY 14 days #4.2 mL 01/17/23 Hospital Course Operations - (Diagnostic laparoscopy converted to exploratory laparotomy with reduction of internal hernia on 01/12/23) Summary of Care Provided Minutes Spent on Discharge: 25 Hospital Course: Patient is an 87 y/o M who presented to the ED with an acute onset of abdominal pain and nausea. 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 Clinical correlation and follow-up imaging would be useful. Dr. Aguilar emergently performed a diagnostic laparoscopy converted to exploratory laparotomy with reduction of internal hernia on 01/12/23. Patient tolerated the procedure well. Patient had an uneventful hospitalization. Upon discharge, patient is tolerating a transitional diet. He denies nausea, vomiting, fever. He is passing flatus and having bowel movements. He is urinating well. He notes minimal amount of incisional soreness. Medical Records Data Medical Nutrition Assessment Dietitian: Malnutrition Criteria Met Start: 01/13/23 10:41 Freq: Status: Active Protocol: Document 01/16/23 14:30 RMA (Rec: 01/16/23 14:31 RMA [id number]) Nutrition Malnutrition Evidence of Malnutrition Exists Yes Malnutrition (severe): Chronic Evidenced By Suboptimal Energy Intake ( Severe),Weight Loss (Severe), Physical Changes (Severe) Clinical Problem Chronic Disease or Condition Related Malnutrition Etiology severe malnutrition related to inadequate energy intake Signs/Symptoms as evidenced by estimated PO intake meeting <75% of estimated protein/calorie needs > 3 months, unintentional ~10#/8% wt loss x 3-4 months, severe muscle wasting/fat loss per physical exam, BMI 17.2 Status Active Problem Recommendation Dietitian Recommendations/Changes Continue diet as tolerated with Transitional and ensure plus high protein TID w/ medpass as ordered. Goal of regular diet w/ continued ONS after d/c for repletion of protein/energy. Weight / BMI Weight Weight: 120 lb 2.431 oz Body Mass Index (BMI) 17.2 ABG / Lab / Microbiology Data 01/15/23 06:50 01/15/23 06:50 Laboratory: Laboratory Results - last 24 hr 01/15/23 06:50: Diff Path Review Reviewed D/C Instructions Discharge Diet: - (Transitional diet) Discharge Activity: May Drive and May Shower Lifting Restrictions: No lifting greater than 10 pounds for 4 weeks Call your doctor if your incision/area has: Continuous Slow Oozing, Sudden Increased Bleeding, Increased Pain/ Swelling, Increased Redness, Foul Smelling Discharge and Swelling at the incision site Call your doctor if you observe: Fever of 101 or Higher Suture Line Care: Avoid Pulling/Pushing and Avoid Pinching/Bending Remove Dressing in: 1 week Cleanse incision/area with: Soap & Water Meaningful Use Info Meaningful Use Diagnoses (Choose all that apply): None applicable Discharge Plan Admission Admit Date/Time: 01/12/23 22:32 Primary Reason for Your Visit: small bowel volvulus Attending Provider: Waqas Aguilar Primary Care Provider: Eduardo Calderon Instructions Additional Instructions / Restrictions: Recommend no lifting greater than 10 pounds for [address] at this time If pain/discomfort occurs, recommend Tylenol for pain as needed You may shower starting tomorrow You may remove any plastic dressings tomorrow Leave the steri-strips in place for 1 week You will be placed on an injectable blood thinner (lovenox/enoxaparin) daily for 2 weeks Follow-up with Dr. Aguilar in 2 weeks. You will have to contact our office to schedule that appointment at [phone]. Recommend continuing transitional diet for 2 weeks. See recommendations below: Transitional Diet Beverages: ? Soda (cola, diet cola, lemon-[place], diet lemon-[place], samia abhi, diet samia abhi) ? Tea (hot or iced) ? Milk (low-fat, 2%, lactose free) ? Coffee ? Juice (without pulp) ? Oral Nutrition supplement Breakfast: ? Hot cereal (oatmeal or cream of wheat) ? Scrambled eggs ? Blueberry muffin ? Cold cereal (no whole grain cereals) ? [place] (white) Lunch or Dinner: Deli Items: Hot Items: Cos Cob sandwich Roast Cos Cob Tuna salad (sandwich or alone) Macaroni & Cheese Egg salad (sandwich or alone) Mashed potatoes & gravy Chicken salad (sandwich or alone) Carrots Green beans Cold Sides: Soups: Cottage cheese Vegetable soup Yogurt Chicken noodle Hardboiled egg Dessert: ? Gelatin, pudding, side kick (juice slushie) Discharge Orders/Prescriptions Prescriptions: New enoxaparin 30 mg/0.3 mL Syringe 30 mg subcut DAILY 14 Days Qty: 4.2 0RF Referrals / Follow Up: Waqas Aguilar MD [Med Staff - Active Staff] - (Please call our office to schedule a 2 week follow-up with Dr. Aguilar) Eduardo Calderon MD [Primary Care Provider] - Disposition Disposition (needs filled in before D/C Order can be placed): Home, Self Care Charges/Coding Visit Charges Inpatient E&M: 96343 Disch Hosp
--- NOTE | 2023-01-17 12:13 | CASEMGMT ---
Social Work SW met with pt and to discuss advance directives.? Pt confirms he has completed a living will and health care POA naming his Shelby Muir. Pt does have a living will on file but no HCPOA on file. SW requested HCPOA be brought in for scanning into the EMR.? JEMIMA Miranda
--- NOTE | 2023-01-17 13:12 | CASEMGMT ---
Spoke with charge nurse who called for cost of lovenox for pt. States pt was educated on injections. Pt to dc today.
== END 2023-01-17 13:30 | disposition home or self-care (01) | DRG 329 ==
LOC: ED 19:47 → SDC 20:08 → MS3 01-13 04:19
PROVIDERS: Admitting Provider Surgery; Emergency Provider Student in an Organized Health Care Education/Training Program; PCP Family Medicine; Visit Provider Surgery
PROC: 0DQ84ZZ Repair Small Intestine, Percutaneous Endoscopic Approach (ICD-10-PCS; CPT 49320; principal; 2023-01-12 20:00)
DX: K56.2 Volvulus (principal); K55.029 Acute infarction of small intestine, extent unspecified; E87.20 Acidosis, unspecified; I89.8 Other specified noninfective disorders of lymphatic vessels and lymph nodes; Z87.891 Personal history of nicotine dependence; Z53.39 Other specified procedure converted to open procedure; Z79.01 Long term (current) use of anticoagulants
CPT/HCPCS: 36415; 74018; 74177; 80048; 80053; 81001; 83605; 83690; 83735; 84100; 85025; 93005; 94668; 97802; 99284; J7030; J7050; J7120; Q9967; A4216; J1940; J2405

== ENCOUNTER → 2023-03-12 | Outpatient (CLI) | payer MEDICARE, BC, SELFPAY ==
--- NOTE | 2023-03-12 09:59 | VDLE_ITS ---
Reason For Study: BLE Swelling RIGHT LEFT GSV is normal. GSV is normal. CFV is compressible, spontaneous, phasic, CFV is compressible, spontaneous, phasic, competent and demonstrates normal competent, and demonstrates normal augmentation. augmentation. FV is compressible, spontaneous, phasic, FV is compressible, spontaneous, phasic, competent and demonstrates normal competent and demonstrates normal augmentation. augmentation. POP V is compressible, spontaneous, phasic, POP V is compressible, spontaneous, phasic, competent and demonstrates normal competent and demonstrates normal augmentation. augmentation. T/P Trunk is compressible. Bright intraluminal weblike echoes noted in PTV is compressible. POP V consistent with chronic DVT. RT PerV is compressible. T/P Trunk is compressible. Procedure PTV is compressible. This is a venous duplex using B-mode, color LT PerV is compressible. flow and spectral Doppler. Exam performed in department. The exam was diagnostic. VL/Venous Duplex US - [place] Extrem Interpretation Summary No evidence for acute deep venous thrombosis bilateral lower extremities with p atent and compressible bilateral great saphenous veins. I believe that the bright echoes within the left popliteal vein likely our valve leaflets. No evidence for acute deep venous thrombosis at this time. Ordering Physician: Waqas Aguilar Referring Physician: Waqas Aguilar Performed By: Jason Rush RVT
== END | disposition home or self-care (01) ==
LOC: CVS 09:56
PROVIDERS: PCP Family Medicine; Referring Provider Surgery; Visit Provider Surgery
DX: R60.0 Localized edema (principal)
CPT/HCPCS: 93970

== ENCOUNTER → 2023-12-19 | Outpatient (CLI) | payer MEDICARE, BC, SELFPAY ==
--- NOTE | 2023-12-19 09:10 | RAD_ITS ---
STUDY: X-RAY - ESOPHAGUS (BARIUM SWALLOW) WITH FLUOROSCOPY REASON FOR EXAM: Male, 88 years old. SWALLOWING DISORDER TECHNIQUE: 27 fluoroscopic view(s) of the esophagus were obtained following swallowing of barium. FLUOROSCOPY TIME (if supplied): (32 seconds) minutes/seconds. 13.4 mGy. COMPARISON: None. FINDINGS: There is no demonstrated esophageal foreign body. There is no demonstrated stricture or mucosal abnormality. Normal gastroesophageal junction, without a demonstrated hiatal hernia. The patient was unable to swallow the 12 mm tablet of barium. There is atherosclerotic calcification of the aortic arch with tortuosity of the descending aorta. Normal visualized pulmonary parenchyma. There are diffuse degenerative changes of the visualized thoracic spine. RAD/Esophagus Dual Contrast IMPRESSION: Unremarkable esophagus. The patient was unable to swallow the 12 mm tablet at bedtime. Electronically Signed: Ollie Trinidad MD at 13:33 EDT ,
== END | disposition home or self-care (01) ==
LOC: RAD 08:56
PROVIDERS: PCP Family Medicine; Referring Provider Family Medicine; Visit Provider Family Medicine
DX: R13.10 Dysphagia, unspecified (principal)
CPT/HCPCS: 74221

== ENCOUNTER 2024-08-23 15:46 | Emergency (ER) | payer MEDICARE, BC, SELFPAY ==
[2024-08-23 15:47] VITALS: BP 159/62; PULSE 65; RESP 18; TEMP 36.5; O2SAT 99; BMI 19.5
--- NOTE | 2024-08-23 17:29 | ED.VIS.LOWEX ---
HPI History of Present Illness Chief Complaint: Lower Extremity Injury Informant: patient and spouse/S.O. Narrative Narrative: Presents here with spouse valuation the right leg pain. Noted more yesterday. He had injury to his right leg a month ago cannot remember how had a wound on it. States not fully healing. No fever chills no drainage. Swelling would come and go. More pain around that area yesterday. They evaluated Internet states could be blood clot. He does have varicose veins. No chest pains no shortness of breath. No history of DVT. Denies any history of neuropathy or diabetes. Prior similar symptoms: No PFSH PFSH Medical History Former smoker History of intestine removal Lower limb pain, anterior Wound of right lower extremity Allergy/AdvReac Type Severity Reaction Status Date / Time No Known Allergies Allergy Verified 08/23/24 15:51 Surgical History S/P exploratory laparotomy Hx of appendectomy Social History Smoking Status: Former smoker ROS ROS ED Constitutional Constitutional ED: Denies fever(s) Cardiovascular Cardiovascular: Denies chest pain Respiratory/Chest Respiratory/Chest: Denies cough Gastrointestinal Gastrointestinal: Denies diarrhea or vomiting Musculoskeletal Musculoskeletal: Reports none and other Details: Right leg pain Integumentary Reports wounds; Denies rash Neurologic Neurologic: Denies weakness EXAM Physical Exam Const Vital Signs: 08/23/24 15:47 Temperature 97.7 F L Temperature Source Oral Pulse Rate 65 Respiratory Rate 18 Blood Pressure 159/62 H Blood Pressure Mean 94 Pulse Ox 99 Oxygen Delivery Method Room Air Positive well nourished and well developed General Appearance ED: well developed HEENT normocephalic and atraumatic Eyes General Eye ED: Yes normal appearance of both eyes Neck full ROM Resp normal respiratory effort and normal air movement Cardio regular rate and regular rhythm GI soft to palpation Extremity Extremity Narrative: Right lower extremity: No medial thigh tenderness. Very minimal calf tenderness. Patient with quarter sized scab medial distal leg there is swelling distal to this. No drainage. No streaking. Pulses intact distally. Varicose veins medial aspect of the leg upper and lower however nontender along this region. Neuro oriented x3 Skin no rashes or lesions noted and no wounds MDM MDM MDM Narrative Medical decision making narrative: Interventions / MDM: Differential diagnosis: Right leg wound, right leg pain Diagnosis considered but do not suspect: Low clinical suspicion for DVT. Ultrasound ordered for outpatient testing. My EKG interpretation: N/A Imaging independently reviewed and interpreted by myself: N/A External documents reviewed: N/A Test considered but not ordered:N/A ED course: Vital stable nontoxic. Wound to his leg with no clinical infection. There is scabbing. I discussed wound care with the patient for this with daily dressings. Currently with holiday no ultrasound available to address his concerns however my clinical suspicion is low. His pain is more anterior. There is no physical superficial thrombophlebitis either. I discussed can order for outpatient ultrasound tomorrow for concerns. All questions were answered. Re-evaluation: stable Disposition discussed with patient/family/significant other: Patient and spouse Case discussed with consulting clinician: N/A This note was generated with [employer] dictation software. It may contain incorrect words, spelling, and punctuation that were not noted in checking the note before signing. Discharge Plan Triage Chief Complaint: Lower Extremity Injury ED Provider: Yogesh Bloom Dx/Rx/DC Orders Clinical Impression: Pain in right leg, Wound of right lower extremity Instructions: ED Wound Care Other Ambulatory Orders: Venous Duplex US, Unilateral (Stat) Facility: [facility] - Location: [facility] Ordered By: Dr. oYgesh Bloom Primary Care Provider: Eduardo Calderon Referrals: Eduardo Calderon MD [Primary Care Provider] - 1 Week Activity Restrictions/Additional Instructions: Wound care as discussed for your leg wound. Return tomorrow for ultrasound of your right lower leg for your concerns. They are here from 8 AM to 1 PM. I would call to confirm good time to show up. Print Language: Yakut Disposition Disposition: Home, Self Care Discharge Date/Time: 08/23/24 17:37
== END 2024-08-23 17:37 | disposition home or self-care (01) ==
LOC: ED 17:28
PROVIDERS: Emergency Provider Emergency Medicine; PCP Family Medicine; Visit Provider Emergency Medicine
DX: S81.801A Unspecified open wound, right lower leg, initial encounter (principal); Z87.891 Personal history of nicotine dependence; M79.604 Pain in right leg; Z90.49 Acquired absence of other specified parts of digestive tract
CPT/HCPCS: 99282

== ENCOUNTER → 2024-08-24 | Outpatient (CLI) | payer MEDICARE, BC, SELFPAY ==
--- NOTE | 2024-08-24 10:42 | VDLE_ITS ---
Reason For Study Reason For Study: Right leg pain RIGHT LEFT GSV is normal. CFV is compressible, spontaneous, phasic, competent, CFV is compressible, spontaneous, phasic, competent and demonstrates normal augmentation. and demonstrates normal augmentation. FV is compressible, spontaneous, phasic, competent and demonstrates normal augmentation. POP V is compressible, spontaneous, phasic, competent and demonstrates normal augmentation. T/P Trunk is compressible. PTV is compressible. RT PerV is compressible. Procedure This is a venous duplex using B-mode, color flow and spectral Doppler. Exam performed in department. A preliminary report was called and/or faxed to PCP: Dr. Calderon. Seen as next day ED patient. VL/Venous Duplex US, Unilateral Interpretation Summary Deep veins of the right lower extremity are patent and compressible segmentally . There is no evidence of right lower extremity deep vein thrombosis. Valvular competence appears intact within the p roximal deep venous system on the right . The right great saphenous vein appears patent and compressible segmentally. The left common femoral vein is patent and compressible . Ordering Physician: Yogesh Bloom Referring Physician: Eduardo Calderon Performed By: Hilda Gibbs RVT
== END | disposition home or self-care (01) ==
LOC: VL 10:35
PROVIDERS: PCP Family Medicine; Referring Provider Emergency Medicine; Visit Provider Emergency Medicine
DX: M79.604 Pain in right leg (principal)
CPT/HCPCS: 93971

== ENCOUNTER 2024-08-25 15:18 | Emergency (ER) | payer MEDICARE, BC, SELFPAY ==
[2024-08-25] VITALS (8 sets, daily range): BP systolic 143–158; BP diastolic 68–78; PULSE 60–68; RESP 16–18; TEMP 36.4–37.1; O2SAT 95–99; BMI 19.0
--- NOTE | 2024-08-25 16:14 | ED.RN ---
HAS HAD WOUND FOR APROX 1 MONTH, HAD VENOUS U/S YESTERDAY AND WAS SEEN BY PCP TODAY. DENIES ANY FLU LIKE SX, FEVER/CHILLS, C/O PAIN FROM ANKLE UP TO BEHIND THE KNEE
[2024-08-25 17:14] LABS: Absolute Lymphocyte Count 1.03 X10^3/uL (0.83-4.51); Absolute Neutrophil Count 3.9 X10^3/uL (2.0-7.7); Basophil# 0.02 X10^3/uL; Basophil% 0.4 % (0-1); Eosinophil# 0.07 X10^3/uL; Eosinophils% 1.3 % (0-5); Hematocrit 41.6 % (40-54); Hemoglobin 14.4 g/dL (13.0-16.5); Lymphocyte # 1.03 X10^3/ul (0.83-4.51); Lymphocyte % 18.8 % (19-41); Mean Corp Hgb Conc 34.6 g/dL (32-36); Mean Corpuscular Hgb 33.6 pg (27.0-32.0); Mean Corpuscular Volume 97.2 fL (80-94); Mean Platelet Vol. 8.9 fl (6.2-12.0); Monocyte# 0.48 X10^3/uL; Monocyte% 8.8 % (0-10); NRBC Flagged by Analyzer 0 % (0-5); Neutrophil # 3.87 X10^3/uL (2.7-7.7); Neutrophil % 70.5 % (47-70); Platelet Count 198 K/mm3 (150-450); RBC Distribution Width CV 12.1 % (11.6-14.6); RBC Distribution Width SD 43.4 fl (35.1-43.9); Red Blood Count 4.28 M/mm3 (4.6-6.2); White Blood Count 5.5 K/mm3 (4.4-11.0)
--- NOTE | 2024-08-25 17:46 | EDS_ITS ---
HPI History of Present Illness Chief Complaint: Wound Informant: patient Narrative Narrative: Patient is an 88-year-old male denies any significant past medical history presenting to [facility] with abnormal outpatient x-ray of his right lower leg. Patient states he had a minor injury to his right lower kathleen about 3 to 4 weeks ago. Only think much of it at the time. She had some slight drainage which she states was clear/slightly blood-tinged. The wound has worsened over this time and has had increased tenderness. He states he gets a burning pain pretty diffusely between his knee and his ankle. It tends be worse in the morning. States it fluctuates a lot in intensity. He followed up with his primary care doctor and had an outpatient venous duplex ultrasound (was negative) but also had an x-ray. The x-ray was concerning for possible osteomyelitis new sent to the ER for evaluation. He states that he is otherwise been doing well. Denies any fever or chills. Denies any systemic symptoms. It is painful but has no other complaints. Does not know his last tetanus was but is not interested in tetanus shot at the time. Patient was seen in the ER 2 days ago for this wound. He had an outpatient ultrasound that was ordered. PCP also ordered uric acid level. Outpatient x-ray reviewed from earlier today?findings raising suspicion for possible of tibial osteomyelitis. Tetanus Immunization: Unknown [facility] Medical History Former smoker History of intestine removal Lower limb pain, anterior Wound of right lower extremity Home Medications ?Medication ?Instructions ?Recorded ?Last Taken ?Type cefdinir 300 mg capsule 300 mg PO Q12H #20 caps 07/31 10/23 Unknown Rx Allergy/AdvReac Type Severity Reaction Status Date / Time No Known Allergies Allergy Verified 08/25/24 15:19 Surgical History S/P exploratory laparotomy Hx of appendectomy Social History Smoking Status: Former smoker ROS ROS ED Constitutional Constitutional ED: Denies chills, fever(s) or sweats Cardiovascular Cardiovascular: Denies chest pain Respiratory/Chest Respiratory/Chest: Denies cough or dyspnea Gastrointestinal Gastrointestinal: Denies nausea or vomiting Musculoskeletal Musculoskeletal: Reports other Details: right lower leg pain Integumentary Reports other Details: wound to right lower leg Neurologic Neurologic: Denies paresthesias or weakness Hematologic/Lymphatic Hematologic/Lymphatic: Denies easy bleeding or easy bruising EXAM Physical Exam Const Vital Signs: 08/25/24 15:19 08/25/24 15:24 08/25/24 17:11 Temperature 97.6 F L 97.6 F L 98.8 F Temperature Source Oral Oral Oral Pulse Rate 68 68 60 Respiratory Rate 18 18 16 Blood Pressure 158/78 H 158/78 H 144/69 H Blood Pressure Mean 104 104 94 Pulse Ox 99 99 99 Oxygen Delivery Method Room Air Room Air Room Air 08/25/24 17:19 08/25/24 18:00 08/25/24 19:00 Temperature 98.4 F Temperature Source Oral Pulse Rate 62 61 64 Respiratory Rate 17 17 16 Blood Pressure 144/68 H 143/74 H 148/77 H Blood Pressure Mean 93 97 100 Pulse Ox 99 99 97 Oxygen Delivery Method Room Air Room Air Room Air 08/25/24 21:00 08/25/24 21:49 Temperature 98.4 F Temperature Source Pulse Rate 62 62 Respiratory Rate 18 18 Blood Pressure 152/74 H 152/74 H Blood Pressure Mean 100 100 Pulse Ox 95 95 Oxygen Delivery Method Room Air Positive well nourished and well developed General Appearance ED: well developed and NAD HEENT Reports moist mucous membranes Chest Wall inspection of chest normal Resp normal respiratory effort and clear to auscultation bilaterally Cardio regular rate and regular rhythm Cardio Narrative: 2+ radial and DP pulses present. Extremity Extremity Narrative: Mild edema noted of the right distal leg/ankle area. No short arc range of motion pain present. Compartments are soft. No palpable cords present. Neuro oriented x3 Sensorium / Orientation: alert Motor Exam: Negative for general weakness Psych mental status grossly normal Skin Skin Narrative: Patient has approximately 2 cm circumferential area of scab just medial to the right distal anterior kathleen. Mild associated erythema around this but no associated warmth. Negative Nikolsky sign. It is tender to palpation. MDM MDM MDM Narrative Medical decision making narrative: Patient evaluated for wound to his leg with pain and outpatient x-ray which was concerning for periosteal inflammation possibly osteomyelitis. Lab work obtained including CBC, BMP, CRP and ESR. Patient is a mildly elevated CRP but otherwise is largely normal labs. Physical exam does show a wound with subacute inflammatory skin changes surrounding it. There is central eschar. I did review outpatient physician note and x-ray on [facility]. I then spoke with orthopedics on-call, Dr. Lopez. He recommended getting a CT scan for further evaluation. CT scan does not show any findings consistent with osteomyelitis. Dr. Lopez did review the CT himself and he was in agreement. Given that patient is overall well-appearing and no significant laboratory findings concerning for severe infection I will be treated outpatient given outpatient wound care follow-up and encouraged to follow-up outpatient with his primary care doctor for MRI for definitive diagnosis. Will be started on antibiotics in the meantime (cefdinir twice daily). Is given return precautions. Patient and agreeable plan of care. Patient discharged home in stable condition. Patient has good distal pulses and low suspicion for acute vascular abnormality/ischemia as a cause. No crepitus I do not think this is excising fasciitis. He is overall well-appearing. Skin changes are not highly consistent with cellulitis. Lab Data Attestation: I reviewed the patient's lab results. Labs: Laboratory Results - last 24 hr 08/25/24 16:50 WBC 5.5 RBC 4.28 L Hgb 14.4 Hct 41.6 MCV 97.2 H MCH 33.6 H MCHC 34.6 RDW Std Deviation 43.4 RDW Coeff of Enio 12.1 Plt Count 198 MPV 8.9 Immature Gran % (Auto) 0.200 Neut % (Auto) 70.5 H Lymph % (Auto) 18.8 L Billings % (Auto) 8.8 Eos % (Auto) 1.3 Baso % (Auto) 0.4 Absolute Neuts (auto) 3.9 Absolute Lymphs (auto) 1.03 Nucleated RBC % 0 ESR 3 Sodium 140 Potassium 4.1 Chloride 106 Carbon Dioxide 23.3 Anion Gap 11 BUN 20 H Creatinine 0.99 Estim Creat Clear Calc 45.53 L Est GFR (MDRD) Non-Af 74 BUN/Creatinine Ratio 19.6 Glucose 91 Calcium 9.2 C-React Prot Ext Range 4.08 H Radiography Diagnostic Testing: Clinical Impression(s) from Imaging Studies Lower Extremity CT 08/25/24 19:51 IMPRESSION: No radiographic evidence of osteomyelitis. If there is continued clinical suspicion, MRI is recommended for further characterization. Reading [facility] Management Discussion w/another healthcare provider: Forder Operator (Orthopedics) Discharge Plan Triage Chief Complaint: Wound ED Provider: Abby Alas Dx/Rx/DC Orders Clinical Impression: Wound of right lower extremity, Pain in right leg Instructions: ED Skin Tear (Skin Avulsion), ED Wound Care Prescriptions: New cefdinir 300 mg capsule 300 mg PO Q12H Qty: 20 0RF Primary Care Provider: Eduardo Calderon Referrals: Jose Turk MD [Med Staff - Active Staff] - Eduardo Calderon MD [Primary Care Provider] - Activity Restrictions/Additional Instructions: Please follow-up with Dr. Turk for wound check and to ensure this is healing appropriately. He might require wound care. Your case was reviewed with orthopedics in the look at your CT. At this time thankfully your lab work is not particularly consistent with osteomyelitis and your CT does not show findings. May follow-up with your primary care doctor outpatient for an MRI but this does not need to be done emergently you do not need to be admitted to the hospital for MRI/IV antibiotics. If you develop fever or worsening symptoms please return to the emergency room. The orthopedist did recommend starting you on antibiotics which have been prescribed. Print Language: Telugu Disposition Disposition: Home, Self Care Discharge Date/Time: 08/25/24 21:57
[2024-08-25 17:48] LABS: Erythrocyte Sedimentation Rate 3 mm/hr (0-20)
[2024-08-25 17:52] LABS: Anion Gap 11 (5-15); BUN 20 mg/dL (4-19); BUN/Creat Ratio 19.6 RATIO (10-20); CRP 4.08 mg/L (0.0-3.0); Calcium,Total 9.2 mg/dL (7.6-11.0); Carbon Dioxide 23.3 mmol/L (21.0-32.0); Chloride 106 mmol/L (98-108); Creatinine, Serum 0.99 mg/dL (0.70-1.20); EST Glomerular Filtration Rate 74 (>60); Estimated Creatinine Clearance 45.53 ml/min (50-250); Glucose 91 mg/dL (70-99); Potassium 4.1 mmol/L (3.3-5.1); Sodium Level 140 mmol/L (133-145)
--- NOTE | 2024-08-25 19:51 | CT_ITS ---
PROCEDURE: EXTREMITY LOWER WITHOUT CONTRA 08/25/2024 REASON FOR EXAM: CONCERN FOR OSTEOMYOLYITIS, LEG WOUND TECHNIQUE: Axial CT images of the right lower extremity obtained without intravenous contrast. Coronal and Sagittal reconstruction series were provided. One or more dose reduction techniques were used (e.g., Automated exposure control, adjustment of the mA and/or kV according to patient size, use of iterative reconstruction technique RADIATION DOSE SUMMARY: CTDlvol: 15 mGy DLP: 914 mGycm COMPARISON: None FINDINGS: Bones: No acute fracture or dislocation. Heterogeneous appearance of the osseous structures. No bony erosion. Joints: Joint spaces are preserved. Soft Tissues: Mild soft tissue edema. No abnormal collection. CT/Extremity Lower without Contra IMPRESSION: No radiographic evidence of osteomyelitis. If there is continued clinical susp icion, MRI is recommended for further characterization. Reading [facility]
== END 2024-08-25 21:57 | disposition home or self-care (01) ==
PROVIDERS: Emergency Provider Emergency Medicine; PCP Family Medicine; Visit Provider Emergency Medicine
DX: S89.91XA Unspecified injury of right lower leg, initial encounter (principal); M79.604 Pain in right leg; Z87.891 Personal history of nicotine dependence; Z90.49 Acquired absence of other specified parts of digestive tract; X58.XXXA Exposure to other specified factors, initial encounter
CPT/HCPCS: 73700; 80048; 85025; 85652; 86140; 87040; 99283; A4216

== ENCOUNTER 2024-10-01 10:33 | Inpatient (IN) | payer MEDICARE, BC, SELFPAY ==
[2024-10-01 10:34] VITALS: BP 172/69; PULSE 69; RESP 14; TEMP 37.2; O2SAT 98; BMI 18.6
--- NOTE | 2024-10-01 11:24 | ED.VIS.LOWEX ---
HPI History of Present Illness Chief Complaint: Lower Extremity Injury Informant: patient Narrative Narrative: Patient had sustained a minor wound to the right lower leg due to hitting his leg on something, he sustained a wound and this was about 1-1.5 months ago. Pt states he was seen in the ER for it he states but not put on antibiotics (which is untrue according to records) which he states were subsequently started by his PCP when it started to look infected. He has been on clindamycin for a couple of weeks, and he states it has improved but not completely resolved and so he had an MRI yesterday which he was alerted today is showing osteomyelitis. Therefore he was sent to the ER. He states he is still having some pain there, but only when somebody or himself accidentally touches it. He denies any fevers, chills, myalgias, dyspnea, systemic symptoms of any type or spreading of the wound/pain. PFSH PFSH Medical History Former smoker History of intestine removal Lower limb pain, anterior Wound of right lower extremity Home Medications ?Medication ?Instructions ?Recorded ?Last Taken ?Type cefdinir 300 mg capsule 300 mg PO Q12H #20 caps 08/25/24 Unknown Rx Allergy/AdvReac Type Severity Reaction Status Date / Time No Known Allergies Allergy Verified 10/01/24 10:34 Surgical History S/P exploratory laparotomy Hx of appendectomy Social History Smoking Status: Former smoker ROS ROS ED Constitutional Constitutional ED: Denies chills or fever(s) Eyes Eyes: Denies change in vision or diplopia ENT ENT ED: Denies rhinorrhea or sore throat Cardiovascular Cardiovascular: Denies chest pain or palpitations Respiratory/Chest Respiratory/Chest: Denies cough or dyspnea Gastrointestinal Gastrointestinal: Denies abdominal pain, diarrhea, nausea or vomiting Genitourinary Genitourinary ED: Denies dysuria or hematuria Musculoskeletal Musculoskeletal: Reports extremity pain; Denies neck pain Integumentary Reports wounds; Denies Abrasions or rash Neurologic Neurologic: Denies paresthesias or weakness Psychiatric Psychiatric: Denies anxiety or suicidal thoughts EXAM Physical Exam Const Vital Signs: 10/01/24 10:34 10/01/24 12:19 Temperature 98.9 F Temperature Source Temporal Pulse Rate 69 56 L Respiratory Rate 14 16 Blood Pressure 172/69 H 142/77 H Blood Pressure Mean 103 98 Pulse Ox 98 99 Oxygen Delivery Method Room Air Room Air Positive well nourished and well developed General Appearance ED: well developed and NAD HEENT Reports moist mucous membranes normocephalic and atraumatic Eyes PERRL and EOMs intact bilaterally Neck full ROM and supple Resp normal respiratory effort and clear to auscultation bilaterally Cardio regular rate and regular rhythm GI non-tender and non-distended Auscultation: normoactive bowel sounds Palpation: soft Back/Spine normal ROM and normal to inspection General Back: other FROM Extremity Extremity Narrative: Small scabbed wound right distal lower leg just above the medial malleolus, there is tenderness in this area and some dark erythema, the tender area is about 3 or 4 cm in diameter, the scab is about 1 cm in diameter. There is no subcutaneous emphysema or fluctuance/abscess or discharge from the area. There is no lymphangitis. All muscle compartments are soft and nondistended of the lower leg and the thigh. There is no tender inguinal lymphadenopathy. Full range of motion all joints of the lower extremities as well as the upper extremities. Intact DP pulses bilaterally. General Extremety ED: Yes tenderness; Negative for edema or pulses abnormal General Extremity: Negative for edema or pulses abnormal Neuro oriented x3, no focal motor deficits and no sensory deficits noted Sensorium / Orientation: alert Motor Exam: strength 5/5 throughout Psych mental status grossly normal and thought process normal Skin Skin Narrative: Small wound with surrounding tenderness right lower leg see above Rashes: no rashes MDM MDM MDM Narrative Medical decision making narrative: Obtained labs including CRP and ESR, I do not think patient needs blood cultures she is not septic he is well-appearing, and I do not think this is osteomyelitis from hematogenous spread, he clearly had orthopedic trauma. He has no medication/antibiotic allergies so started on Zosyn and vancomycin according to available recommendations for this, and discussed with hospitalist for admission. Also discussed with orthopedics Dr. Burris. History & Record Review Additional record(s) reviewed:: Prior labs (Outpatient MRI from yesterday: Mild focal area of cortical thinning correlating to area of periosteal reaction on prior radiograph, consistent with acute osteomyelitis involving the medial tibial cortex near soft tissue ulceration along the medial distal tibia; no marrow replacement/involvement) Lab Data Attestation: I reviewed the patient's lab results. Labs: Laboratory Results - last 24 hr 10/01/24 11:30 WBC 3.4 L RBC 4.30 L Hgb 14.1 Hct 41.2 MCV 95.8 H MCH 32.8 H MCHC 34.2 RDW Std Deviation 43.2 RDW Coeff of Enio 12.3 Plt Count 185 MPV 8.7 Immature Gran % (Auto) 0.000 Neut % (Auto) 67.1 Lymph % (Auto) 23.3 [place] % (Auto) 8.4 Eos % (Auto) 0.6 Baso % (Auto) 0.6 Absolute Neuts (auto) 2.3 Absolute Lymphs (auto) 0.80 L Nucleated RBC % 0 ESR 1 Sodium 138 Potassium 4.1 Chloride 105 Carbon Dioxide 22.1 Anion Gap 10 BUN 18 Creatinine 0.84 Estim Creat Clear Calc 52.68 Est GFR (MDRD) Non-Af 85 BUN/Creatinine Ratio 21.5 H Glucose 91 Calcium 9.1 C-React Prot Ext Range < 3.00 Management Discussion w/another healthcare provider: Hospitalist and [employer] Discharge Plan Dx/Rx/DC Orders Clinical Impression: Acute osteomyelitis of right tibia, Traumatic open wound of right lower leg with infection, Failure of outpatient treatment Disposition Disposition: [facility]
[2024-10-01] MEDS: Piperacil/Tazobactam 4.5 GM in 0.9% Normal Saline (100mL MB+) 100 ML IV (11:38)
[2024-10-01 11:58] LABS: Hematocrit 41.2 % (40-54); Hemoglobin 14.1 g/dL (13.0-16.5); Immature Granulocytes Count 0.000 X10^3/uL (0.0-0.0); Mean Corp Hgb Conc 34.2 g/dL (32-36); Mean Corpuscular Volume 95.8 fL (80-94); Mean Platelet Vol. 8.7 fl (6.2-12.0); NRBC Flagged by Analyzer 0 % (0-5); Platelet Count 185 K/mm3 (150-450); RBC Distribution Width CV 12.3 % (11.6-14.6); RBC Distribution Width SD 43.2 fl (35.1-43.9); Red Blood Count 4.30 M/mm3 (4.6-6.2); White Blood Count 3.4 K/mm3 (4.4-11.0)
[2024-10-01] MEDS: Vancomycin IV 1,000 MG/200 ML BAG 200 MG IV (12:18)
[2024-10-01 12:19] VITALS: BP 142/77; PULSE 56; RESP 16; O2SAT 99
[2024-10-01 12:24] LABS: Anion Gap 10 (5-15); BUN 18 mg/dL (4-19); BUN/Creat Ratio 21.5 RATIO (10-20); Calcium,Total 9.1 mg/dL (7.6-11.0); Carbon Dioxide 22.1 mmol/L (21.0-32.0); Chloride 105 mmol/L (98-108); Estimated Creatinine Clearance 52.68 ml/min (50-250); Glucose 91 mg/dL (70-99); Potassium 4.1 mmol/L (3.3-5.1)
[2024-10-01 12:38] LABS: CRP < 3.00 mg/L (0.0-3.0)
[2024-10-01 13:51] VITALS: BP 163/78; PULSE 93; RESP 14; TEMP 36.7; O2SAT 97
[2024-10-01 14:03] VITALS: BP 163/78; PULSE 93; RESP 14; TEMP 36.7; O2SAT 97
--- NOTE | 2024-10-01 14:04 | HP.PCM.HOS_ITS ---
HPI - General General Date of Admission: 10/01/24 Date of Service: 10/01/24 Chief Complaint: Right leg wound HPI Narrative ROXANA OWENS, is a 88 M who presented to the emergency department at [facility] on 10/01/2024 at the request of his primary care physician Dr. Calderon. Patient had a wound that developed after a traumatic episode. At the end of June he had an episode where a wound developed acute remember the exact etiology but has been problematic on and off since that point in time. He has been to the emergency department a couple times. He had a venous duplex that was unremarkable. Extensive imaging was performed and lab work and the case was discussed with orthopedic surgery. At his last emergency department visit on 08/25/2024 the patient was given antibiotics with cefdinir for 10 days and instructed to follow-up with Dr. Turk. It does not appear that he followed up with Dr. Turk. His primary care physician was concerned since the wound is not healing so an MRI was performed today and per emergency department physician's conversation with the primary care physician the MRI was consistent with osteomyelitis of the tibia. Patient reports that open ~3 days ago his pain was pretty significant but the pain has now abated. He is walking without an antalgic gait around the room and states he has no pain with ambulation. Patient states that the wound is not draining and is dry on top. Patient has no systemic symptoms Vital signs on presentation showed temperature 97.7, heart rate 65, respiratory 18, blood pressure 159/62 and pulse ox is 99% room air. CBC and CMP are completely unremarkable. Patient had cultures obtained emergency department and was given broad-spectrum antibiotics. The case was discussed with orthopedic surgery and they will evaluate the patient in consult since there does seem to be bone involvement. We are asking for requested records. [facility] Medical History Cancer Former smoker History of intestine removal Lower limb pain, anterior Wound of right lower extremity Home Medications ?Medication ?Instructions ?Recorded ?Last Taken ?Type cefdinir 300 mg capsule 300 mg PO Q12H #20 caps 07/31 10/23 Unknown Rx Allergy/AdvReac Type Severity Reaction Status Date / Time No Known Allergies Allergy Verified 10/01/24 10:34 Surgical History S/P exploratory laparotomy Hx of appendectomy Social History Smoking Status: Former smoker ROS Constitutional Constitutional: Reports change in weight; Denies anorexia, chills, fatigue, fever(s), malaise, night sweats, weakness or other Eyes Eyes: Denies blurry vision, change in eye color, change in vision, discharge from eye(s), double vision, erythema, eye pain, loss of vision or other ENT HEENT: Denies abnormal hearing, dysphagia, ear pain, epistaxis, headache(s), hearing loss, nasal congestion, nasal discharge, post nasal drip, sinus pressure, sore throat or other Cardiovascular Cardiovascular: Denies chest pain, claudication, dyspnea on exertion, edema, lightheadedness, orthopnea, palpitations, paroxysmal nocturnal dyspnea, rapid heart rate, syncope or other Respiratory/Chest Respiratory/Chest: Denies cough, dyspnea, excessive phlegm production, hemoptysis, productive cough, shortness of breath at rest, shortness of breath with exertion, wheezing or other Gastrointestinal Gastrointestinal: Denies abdominal pain, coffee ground emesis, constipation, diarrhea, dyspepsia, hematemesis, hematochezia, loose stools, melena, nausea, vomiting or other Genitourinary Genitourinary: Denies burning urination, difficulty urinating, dysuria, hematuria, nocturia, urinary frequency, urinary hesitancy, urinary incontinence, urinary urgency or other Musculoskeletal Musculoskeletal: Reports other Details: Right leg pain but this is resolved Integumentary Integumentary: Reports wounds; Denies rash Neurologic Neurologic: Denies abnormal gait, abnormal speech, confusion, disequilibrium, dizziness, focal weakness, headache(s), numbness, paresthesias, seizure-like activity, seizures, syncope, tingling, tremor(s) or other Psychiatric Psychiatric: Denies anxiety, depression, homicidal ideation, suicidal ideation or other Endocrine Endocrinology: Denies change in body appearance, cold intolerance, excessive sweating, heat intolerance, polydipsia, polyuria or other Hematologic/Lymphatic Hematologic/Lymphatic: Denies anemia, easy bleeding, easy bruising, lymphadenopathy or other Allergic/Immunologic Allergic/Immunologic: Denies rhinitis, hives, eczemia, asthma or other Vital Signs Vital Signs Vital Signs: 10/01/24 10:34 10/01/24 12:19 10/01/24 13:51 Temperature 98.9 F 98.1 F Temperature Source Temporal Oral Pulse Rate 69 56 L 93 Respiratory Rate 14 16 14 Blood Pressure 172/69 H 142/77 H 163/78 H Blood Pressure Mean 103 98 106 Pulse Ox 98 99 97 Oxygen Delivery Method Room Air Room Air Room Air 10/01/24 14:03 Temperature 98.1 F Temperature Source Pulse Rate 93 Respiratory Rate 14 Blood Pressure 163/78 H Blood Pressure Mean 106 Pulse Ox 97 Oxygen Delivery Method Weight Weight: 59 kg Body Mass Index (BMI) 18.6 Physical Exam Const alert, oriented x3, no apparent distress, average body habitus and healthy appearing; Negative for well nourished Constitutional Narrative: Thin, elderly, white male, ambulating around the room independently, gait is normal without any antalgia, appears nontoxic and comfortable HEENT head/scalp atraumatic and moist oral mucous membranes Resp normal respiratory effort, no retractions, no use of accessory muscles and clear to auscultation bilaterally Resp Narrative: Diminished but clear Auscultation: Negative for rales, rhonchi or wheezes Cardio regular rate, regular rhythm, S1 normal heart sound, S2 normal heart sound, no murmurs, no rub, no gallops and no clicks GI normal to inspection, nondistended, normoactive bowel sounds, soft to palpation and non-tender GI Narrative: Scaphoid abdomen Extremity Extremity Narrative: Trace edema right lower extremity, no cyanosis or clubbing, right lower extremity dressing in place and is clean dry and intact Neuro oriented x3, moves all extremities, no focal motor deficits and no sensory deficits noted Speech: speech normal Psych Psych Narrative: Seems slightly anxious but interacts appropriately and affect is normal Results Lab / Micro Data 10/01/24 11:30 10/01/24 11:30 Labs: Laboratory Results - last 24 hr 10/01/24 11:30: WBC 3.4 L, RBC 4.30 L, Hgb 14.1, Hct 41.2, MCV 95.8 H, MCH 32.8 H, MCHC 34.2, RDW Std Deviation 43.2, RDW Coeff of Enio 12.3, Plt Count 185, MPV 8.7, Immature Gran % (Auto) 0.000, Neut % (Auto) 67.1, Lymph % (Auto) 23.3, [place] % (Auto) 8.4, Eos % (Auto) 0.6, Baso % (Auto) 0.6, Absolute Neuts (auto) 2.3, A bsolute Lymphs (auto) 0.80 L, Nucleated RBC % 0, ESR 1, Sodium 138, Potassium 4.1, Chloride 105, Carbon Dioxide 22.1, Anion Gap 10, BUN 18, Creatinine 0.84, Estim Creat Clear Calc 52.68, Est GFR (MDRD) Non-Af 85, BUN/Creatinine Ratio 21.5 H, Glucose 91, Calcium 9.1, C-React Prot Ext Range < 3.00 Assessment & Plan Assessment/Plan (1) Failure of outpatient treatment: (2) Traumatic open wound of right lower leg with infection: QUALIFIERS: Encounter type: initial encounter Qualified Code(s): S81.801A - Unspecified open wound, right lower leg, initial encounter; L08.9 - Local infection of the skin and subcutaneous tissue, unspecified (3) Acute osteomyelitis of right tibia: PLAN: Plan Right lower extremity infected wound/acute osteomyelitis of the tibia - Outpatient failure with Omnicef and clindamycin - Cultures obtained in the emergency department from blood - CRP and ESR completely normal which is odd for osteo - MRI done as outpatient over at [facility] and awaiting results but we did get a call in the emergency department at the findings were consistent with osteomyelitis - Clinically the patient states he feels as good as he has - Consult orthopedic surgery - Consult ID - Wound nurse consultation - Broad-spectrum antibiotics Underweight - BMI 17.9 - Start supplements - Add Keyur for wound healing - Dietitian consult History of tobacco abuse - Recommend ongoing cessation DVT prophylaxis - Lovenox 40 daily CODE STATUS - DNR CCA okay for short-term intubation per discussion on admission Charges/Coding Visit Charges Inpatient E&M: 39671 Init Hosp L2
[2024-10-01 14:26] VITALS: BMI 17.9
[2024-10-01 14:31] VITALS: BP 175/74; PULSE 60; RESP 16; TEMP 36.2; O2SAT 97
--- NOTE | 2024-10-01 14:36 | PCM.RX.CS ---
Consult Antibiotic Management Pharmacy has been consulted to manage selected antibiotic: Vancomycin Type of Intervention Type of Consult: New start Suspected Infection Suspected Infection: Osteomyelitis Labs Labs: Sodium 138 mmol/L (133-145) 10/01/24 11:30 Potassium 4.1 mmol/L (3.3-5.1) 10/01/24 11:30 Chloride 105 mmol/L (98-108) 10/01/24 11:30 Carbon Dioxide 22.1 mmol/L (21.0-32.0) 10/01/24 11:30 Anion Gap 10 (5-15) 10/01/24 11:30 BUN 18 mg/dL (4-19) 10/01/24 11:30 Creatinine 0.84 mg/dL (0.70-1.20) 10/01/24 11:30 Est GFR (MDRD) Non-Af 85 (>60) 10/01/24 11:30 BUN/Creatinine Ratio 21.5 RATIO (10-20) H 10/01/24 11:30 Glucose 91 mg/dL (70-99) 10/01/24 11:30 Estimated Creatinine Clearance Estimated Creatinine Clearance: 52.68 Goal Trough Goal Trough: 15-20 mcg/mL Pharmacy Plan for Drug Dosing Pharmacy Plan for Drug Dosing: NEW START IV VANCOMYCIN Consulting Physician: Dr. Xiao Indication: Osteomyelitis Goal Trough: 15-20 SrCr: 0.84 CrCl: 52.68 ml/min Comments: Received 1000mg x1 dose in ED @ 12:18 10/01/24 Vancomycin Dose: 500mg Q12H to start @ 00:00 10/02/24 Pending Level: 10/02/24 @ 23:30 Pharmacy Service will continue to monitor and adjust dosing as required. Follow-Up Labs Follow-Up Labs: Trough: Vancomycin (10/02/24 @ 23:30)
--- NOTE | 2024-10-01 15:50 | CON.PCM.OR_ITS ---
HPI Consult Data Date of Consult: 10/01/24 HPI Narrative HPI Narrative: ROXANA OWENS, is a 88 M who presents To ED today for follow-up of abnormal MRI obtained at [facility] yesterday through his PCP. Patient has had a nonhealing wound to the right lower kathleen since late June after bumping it. He was seen in the ED on 08/25/2024 and put on oral Cefdinir x 10 days. He did have a CT at that time that showed no evidence of osteomyelitis. Dr. Turk was consulted at that time. Patient noted mild improvement and then worsening 2 to 3 weeks ago. Denies any purulent drainage, no surrounding erythema, no streaking no fever or chills. Was admitted to house medicine with diagnosis of osteomyelitis. [facility] Medical History (Updated 10/01/24 @ 16:07 by Rosa Bull NP-C) Cancer Former smoker History of intestine removal Lower limb pain, anterior Wound of right lower extremity Home Medications ?Medication ?Instructions ?Recorded ?Last Taken ?Type cefdinir 300 mg capsule 300 mg PO Q12H #20 caps 07/31 10/23 Unknown Rx Allergy/AdvReac Type Severity Reaction Status Date / Time No Known Allergies Allergy Verified 10/01/24 10:34 Surgical History S/P exploratory laparotomy Hx of appendectomy Social History Smoking Status: Former smoker ROS ROS Narrative Patient is A&O x 3, pleasant. He is ambulatory in the room with bandage to right lower kathleen and ambulates easily with cane. Family visiting at bedside. Constitutional Constitutional: Reports systems reviewed and no addt'l complaints, except as documented; Denies chills or fever(s) ENT HEENT: Reports systems reviewed and no addt'l complaints, except as documented Musculoskeletal Musculoskeletal: Reports as per HPI Integumentary Integumentary: Reports wounds Neurologic Neurologic: Reports systems reviewed and no addt'l complaints, except as documented Vital Signs Vital Signs Vital Signs: 10/01/24 10:34 10/01/24 12:19 10/01/24 13:51 Temperature 98.9 F 98.1 F Temperature Source Temporal Oral Pulse Rate 69 56 L 93 Pulse Strength Respiratory Rate 14 16 14 Respiratory Effort Respiratory Depth Respiratory Pattern Blood Pressure 172/69 H 142/77 H 163/78 H Blood Pressure Mean 103 98 106 Blood Pressure Source Blood Pressure Position Blood Pressure Location Pulse Ox 98 99 97 Oxygen Delivery Method Room Air Room Air Room Air 10/01/24 14:03 10/01/24 14:31 10/01/24 14:54 Temperature 98.1 F 97.2 F L Temperature Source Oral Pulse Rate 93 60 Pulse Strength Respiratory Rate 14 16 Respiratory Effort Normal Respiratory Depth Normal Respiratory Pattern Normal Blood Pressure 163/78 H 175/74 H Blood Pressure Mean 106 107 Blood Pressure Source Monitor Blood Pressure Position Semi-Fowlers Blood Pressure Location Right Arm Pulse Ox 97 97 Oxygen Delivery Method Room Air Room Air 10/01/24 15:00 10/01/24 15:29 Temperature Temperature Source Pulse Rate Pulse Strength Normal (2+) Respiratory Rate Respiratory Effort Respiratory Depth Respiratory Pattern Blood Pressure Blood Pressure Mean Blood Pressure Source Blood Pressure Position Blood Pressure Location Pulse Ox Oxygen Delivery Method Room Air Weight Weight: 124 lb 7.991 oz Body Mass Index (BMI) 17.9 Physical Exam General General: Yes no acute distress and Yes well groomed Neurologic: Yes alert and Yes oriented x3 Psychologic: Yes reasonable and appropriate Right Knee KNEE: Skin is pink, warm, dry and intact Full range of motion in all directions with no instability Right Foot/Ankle ANKLE: A small approximate dime sized scabbed wound is present over the anterior medial aspect of the low tibia. There is a dark reddish scab present. There is no openings, there is no surrounding erythema, drainage, streaking. There is no bony pain over the tibia. Periwound skin slightly tender to touch. No bony pain to ankle or foot with full ROM of foot and ankle. Distal pulses present, cap refill at 2 to 3 seconds which is equal to opposite limb. Ambulatory in room with straight cane with steady gait, changes positions easliy. Lab / Micro Data Attestation: I reviewed the patient's lab results. 10/01/24 11:30 10/01/24 11:30 Labs: Laboratory Results - last 24 hr 10/01/24 11:30: WBC 3.4 L, RBC 4.30 L, Hgb 14.1, Hct 41.2, MCV 95.8 H, MCH 32.8 H, MCHC 34.2, RDW Std Deviation 43.2, RDW Coeff of Enio 12.3, Plt Count 185, MPV 8.7, Immature Gran % (Auto) 0.000, Neut % (Auto) 67.1, Lymph % (Auto) 23.3, [place] % (Auto) 8.4, Eos % (Auto) 0.6, Baso % (Auto) 0.6, Absolute Neuts (auto) 2.3, A bsolute Lymphs (auto) 0.80 L, Nucleated RBC % 0, ESR 1, Sodium 138, Potassium 4.1, Chloride 105, Carbon Dioxide 22.1, Anion Gap 10, BUN 18, Creatinine 0.84, Estim Creat Clear Calc 52.68, Est GFR (MDRD) Non-Af 85, BUN/Creatinine Ratio 21.5 H, Glucose 91, Calcium 9.1, C-React Prot Ext Range < 3.00 Imaging Unable to access MRI imaging or report. Per ED note attending documentation, Outpatient MRI from yesterday: Mild focal area of cortical thinning correlating to area of periosteal reaction on prior radiograph, consistent with acute osteomyelitis involving the medial tibial cortex near soft tissue ulceration along the medial distal tibia; no marrow replacement/involvement Unable to locate radiology report or images in EHR at time of consultation. Reviewed ED attending note from today and 08/24/2024, CT lower extremity from 08/24/2024 with no evidence of osteomyelitis. Assessment & Plan Assessment/Plan (1) Acute osteomyelitis of right tibia: PLAN: Continue with plan of IV antibiotics for the next 72 hours per house medicine orders Recommend consult wound nurse Plan for follow-up in the wound center Request MRI imaging and report from [facility], contact Dr. Owen with findings No indication for surgical debridement of the bone at this time. This plan was collaborated with Dr. Martinez on date of visit. (2) Traumatic open wound of right lower leg with infection: QUALIFIERS: Encounter type: initial encounter Qualified Code(s): S81.801A - Unspecified open wound, right lower leg, initial encounter; L08.9 - Local infection of the skin and subcutaneous tissue, unspecified (3) Failure of outpatient treatment:
[2024-10-01] MEDS: Lactobacillis Acidophilus 1 CAP PO ×2 (16:02→22:54)
[2024-10-01] MEDS: Ensure Plus High Protein 120 ML LIQUID PO (16:02)
--- NOTE | 2024-10-01 16:30 | NURSING ---
consent for mri report signed and faxed to [facility]
--- NOTE | 2024-10-01 18:37 | PCM.PN.HOSP ---
Reason for Visit Reason for Visit: Nonhealing distal right lower extremity wound Subjective Subjective Patient denies any pain. States he is feeling well. No pain in his leg with ambulation. Objective Data Objective Data Vital Signs: Vital Signs Temp Pulse Resp BP Pulse Ox O2 Del Method 97.2 F L 60 16 175/74 H 97 Room Air 10/01/24 14:31 10/01/24 14:31 10/01/24 14:31 10/01/24 14:31 10/01/24 14:31 10/01/24 15:29 Oxygen Delivery Method Room Air Weight: 56.472 kg Body Mass Index (BMI) 17.9 Intake & Output: Intake and Output for Last 24 Hours 09/29/24 09/30/24 10/01/24 23:59 23:59 23:59 Intake Total 650 / 650 Balance 650 / 650 Lab / Micro Data 10/02/24 04:49 10/02/24 04:49 Labs: Laboratory Results - last 24 hr 10/01/24 11:30: WBC 3.4 L, RBC 4.30 L, Hgb 14.1, Hct 41.2, MCV 95.8 H, MCH 32.8 H, MCHC 34.2, RDW Std Deviation 43.2, RDW Coeff of Enio 12.3, Plt Count 185, MPV 8.7, Immature Gran % (Auto) 0.000, Neut % (Auto) 67.1, Lymph % (Auto) 23.3, Arroyo % (Auto) 8.4, Eos % (Auto) 0.6, Baso % (Auto) 0.6, Absolute Neuts (auto) 2.3, Absolute Lymphs (auto) 0.80 L, Nucleated RBC % 0, ESR 1, Sodium 138, Potassium 4.1, Chloride 105, Carbon Dioxide 22.1, Anion Gap 10, BUN 18, Creatinine 0.84, Estim Creat Clear Calc 52.68, Est GFR (MDRD) Non-Af 85, BUN/Creatinine Ratio 21.5 H, Glucose 91, Calcium 9.1, C-React Prot Ext Range < 3.00 Physical Exam Const alert, oriented x3, no apparent distress, average body habitus and healthy appearing; Negative for well nourished Constitutional Narrative: Thin, elderly, white male, sitting up in the chair at the bedside, appears comfortable, nontoxic HEENT head/scalp atraumatic and moist oral mucous membranes HEENT Narrative: Mallampati 2, no thrush Head and Scalp: normocephalic Resp normal respiratory effort, no retractions, no use of accessory muscles and clear to auscultation bilaterally Resp Narrative: Diminished but clear Auscultation: Negative for rales, rhonchi or wheezes Cardio regular rate, regular rhythm, S1 normal heart sound, S2 normal heart sound, no murmurs, no rub, no gallops and no clicks GI normal to inspection, nondistended, normoactive bowel sounds, soft to palpation and non-tender GI Narrative: Scaphoid abdomen Extremity Extremity Narrative: Trace to 1+ edema right lower extremity, no cyanosis or clubbing, right lower extremity dressing in place and is clean dry and intact--> nursing at does change his dressing and stated there is no drainage on the dressing at all Neuro oriented x3, moves all extremities, no focal motor deficits and no sensory deficits noted Speech: speech normal Psych affect normal Psych Narrative: Calm today Assessment & Plan Assessment/Plan (1) Failure of outpatient treatment: (2) Traumatic open wound of right lower leg with infection: QUALIFIERS: Encounter type: initial encounter Qualified Code(s): S81.801A - Unspecified open wound, right lower leg, initial encounter; L08.9 - Local infection of the skin and subcutaneous tissue, unspecified (3) Acute osteomyelitis of right tibia: PLAN: Plan Right lower extremity infected wound/acute osteomyelitis of the tibia - Outpatient failure with Omnicef and clindamycin - Cultures obtained in the emergency department from blood - CRP and ESR completely normal which is odd for osteo - MRI done as outpatient over at [facility] and awaiting results but we did get a call in the emergency department at the findings were consistent with osteomyelitis -Unfortunately we still have the results from [facility] and I am unable to get into [facility] so will have to repeat MRI with and without contrast -MRI of distal leg ordered - Clinically the patient states he feels as good as he has - ID consult pending - Wound nurse consultation pending - continue vanc and zosyn for now Underweight - BMI 17.9 - Continue Ensure high-protein supplements supplements - Continue Keyur for wound healing - Dietitian is following History of tobacco abuse - Recommend ongoing cessation DVT prophylaxis - Lovenox 40 daily CODE STATUS - DNR CCA okay for short-term intubation per discussion on admission Charges/Coding Visit Charges Inpatient E&M: 64925 Subs Hosp L2
[2024-10-01 22:00] VITALS: BP 154/71; PULSE 67; RESP 16; TEMP 36.6; O2SAT 96
[2024-10-01] MEDS: Piperacil/Tazobactam 3.375 GM in 0.9% Normal Saline (50mL MB+) 50 ML IV (22:54)
--- OUTSIDE RECORDS SUMMARY | 2024-10-01 23:17 | XMS RPT_ITS | CCD ---
Author Organization [facility]ini[facility] Care Team Providers Care Service Tester Name Role Phone Eduardo Infante MD Primary Care Provider EDUARDO INFANTE Referring Unavailable EDUARDO INFANTE Primary Care Unavailable Eduardo Infante MD Primary Care Provider Dr. Eduardo Infante Primary Care Provider Dr. Juan Manuel Ann Emergency Provider Dr. Waqas Aguilar Attending Provider Dr. Waqas Aguilar Admit Provider Dr. Waqas Aguilar Other Provider Shanda KUMAR PA-Anjali Stuart Attending Provider Eduardo Infante MD Primary Care Provider Dr. Eduardo Infante Primary Care Provider Dr. Juan Manuel Ann Emergency Provider Dr. Waqas Aguilar Attending Provider Dr. Waqas Aguilar Admit Provider Dr. Waqas Aguilar Other Provider Shanda KUMAR PA-Anjali Stuart Attending Provider Dr. Eduardo Infante Referring Provider Dr. Jose Hendrix Attending Provider Cameron AUTOMAT[employer] BUFFING WHEEL FORMERMonserrat RIVERO Unavailable Winter AUTOMATIC BUFFING WHEEL FORMERGabriellaINSURANCE RISK SURVEYOR, Rosemary A Unavailable Dr. Eduardo Infante MD Primary Care Provider Dr. Yogesh Bloom DO Emergency Provider Dr. Yogesh Bloom DO Attending Provider Dr. Yogesh Bloom DO Referring Provider [phone] Abby Alas DO Emergency Provider Naresh, Eduardo Referring Unavailable Naresh, Eduardo Attending Unavailable [place], Eduardo Primary Care Unavailable Abby Alas Attending Unavailable [place], Eduardo Primary Care Unavailable [place], Eduardo Primary Care Unavailable Le, Yogesh Attending Unavailable Le, Yogesh Attending Unavailable [place], Eduardo Primary Care Unavailable Le, Yogesh Referring Unavailable NARESH, EDUARDO J Referring Unavailable NARESH, EDUARDO J Primary Care Unavailable NARESH, EDUARDO J Referring Unavailable NARESH, EDUARDO J Attending Unavailable NARESH, EDUARDO J Primary Care Unavailable NARESH, EDUARDO J Primary Care Unavailable NARESH, EDUARDO J Attending Unavailable NARESH, EDUARDO J Primary Care Unavailable SELF Referring Unavailable NARESH, EDUARDO J Attending Unavailable NARESH, EDUARDO J Primary Care Unavailable NARESH, EDUARDO J Primary Care Unavailable NARESH, EDUARDO J Referring Unavailable NARESH, EDUARDO J Primary Care Unavailable ROSEMARY NOVAK Attending Unavailable NED MACIAS Referring Unavailab le NARESH, EDUARDO J Primary Care Unavailable NED MACIAS Referring Unavailab le NARESH, EDUARDO J Primary Care Unavailable NED MACIAS Attending Unavailab le NARESH, EDUARDO J Primary Care Unavailable SELF Referring Unavailable NARESH, EDUARDO J Primary Care Unavailable ESTUARDO JESUS Attending Unavailable NARESH, EDUARDO J Referring Unavailable NARESH, EDUARDO J Primary Care Unavailable AKANKSHA CASTANON Attending Unavailable Nilson KNOX, Dr. Easton Egan Attending Provider Dr. Abby Alas DO Attending Provider [phone]. Rolando Christina MD Emergency Provider Dr. Natalya Xiao DO Admit Provider Dr. Natalya Xiao DO Attending Provider Allergies Allergy Classification Reported Allergen(s) Allergy Type Date of Onset Reaction(s) Facility (4 sources) Penicillins; Translations: [PENICILLINS] Propensity to adverse reactions to drug 09-16-2012 Unknown [facility] (20 sources) Penicillins Propensity to adverse reactions to drug 09-16-2012 Unknown [facility] (10 sources) Penicillins Propensity to adverse reactions to drug 09-16-2012 Unknown [facility] Medications Current Medications Medication Drug Class(es) Dates Sig (Normalized) Sig (Original) cefdinir 300 mg oral capsule (7 sources) Cephalosporin Antibacterial Start: 08-25-2024 take 1 capsule by mouth every twelve hours cefdinir (OMNICEF) 300 mg capsule Take 1 capsule by mouth every 12 hours. 08/26/2024 Active clindamycin 150 mg oral capsule (3 sources) Lincosamide Antibacterial Start: 09-28-2024 End: 10-05-2024 take 1 capsule by mouth four times daily clindamycin (CLEOCIN) 150 mg capsule Indications: Wound of right lower extremity, subsequent encounter , Abnormal x-ray Take 1 capsule by mouth four times daily for 7 days. 40 capsule 09/28/2024 10/05/2024 Active doxycycline monohydrate 100 mg oral tablet (1 source) Tetracycline-class Drug Start: 03-13-2023 End: 03-23-2023 take 1 tablet by mouth twice daily doxycycline monohydrate 100 mg tablet Indications: Edema, unspecified type , Cellulitis of skin Take 1 tablet by mouth two times a day for 10 days. 20 tablet 0 03/13/2023 03/23/2023 Active Comment on above: Take 1 tablet by rand two times a day for 10 days. famotidine 20 mg oral tablet (12 sources) Histamine-2 Receptor Antagonist Start: 06-17-2024 take 1 tablet by mouth once daily at bedtime famotidine (PEPCID) 20 mg tablet Indications: Gastroesophageal reflux disease without esophagitis Take 1 tablet by mouth daily at bedtime. 30 tablet 5 06/17/2024 Active mupirocin 0.02 mg/mg topical ointment (18 sources) RNA Synthetase Inhibitor Antibacterial Start: 08-25-2024 End: 09-04-2024 mupirocin (BACTROBAN) 2 % ointment Indications: Wound of right lower extremity, subsequent encounter Apply 1 application to affected area two times a day for 10 days. 30 g 1 08/25/2024 09/04/2024 Active Start: 01-12-2021 End: 01-12-2023 Mupirocin 2 % Ointment Disco ntinued TOPICAL January 12, 2021 12:00am January 12, 2023 4:02pm Start: 01-12-2021 End: 01-12-2023 Mupirocin Discontinued TOPIC AL January 11, 2021 11:00pm January 12, 2023 3:02pm Start: 12-27-2020 End: 01-06-2021 mupirocin (BACTROBAN) 2 % oi ntment Indications: Leg wound, right, initial encounter Apply to affected area three times daily for 10 days. 22 g 12/27/2020 01/06/2021 Comment on above: Apply to affected ar ea twice daily. Apply to the skin over the left left ear twice daily nirmatrelvir tablet 300 mg (150 mg x 2) and ritonavir tablet 100 mg in a dose pack (PAXLOVID) (1 source) Start: 4 End: 4 nirmatrelvir tablet 300 mg (150 mg x 2) and ritonavir tablet 100 mg in a dose pack (PAXLOVID) Administer TWO pink nirmatrelvir 150 mg tablets and ONE white ritonavir 100 mg tablet for a total of three tablets twice daily. 30 tablet 11/19/2023 11/24/2023 Active [place] (Nk) (1 source) Start: 3 [place] (Nk) Active January 12, 2023 12:00am omeprazole 20 mg delayed release oral capsule (10 sources) Proton Pump Inhibitor Start: 2 End: 3 take 1 capsule by mouth once daily before breakfast omeprazole (PRILOSEC) 20 mg capsule Indications: Chronic cough , Dysphagia, unspecified type Take 1 capsule by mouth daily before breakfast. 1/2 hr before meal. 30 capsule 5 07/16/2022 09/14/2022 Active Comment on above: Take 1 capsule by mo [facility] daily before breakfast. 1/2 hr before meal. Completed/Discontinued Medications Medication Drug Class(es) Dates Sig (Normalized) Sig (Original) cephalexin 500 mg oral capsule (2 sources) Cephalosporin Antibacterial Start: 12-27-2020 End: 06-23-2021 take 1 capsule by mouth three times daily cephALEXin (KEFLEX) 500 mg capsule Indications: Wound of right lower extremity, subsequent encounter Take 1 capsule by mouth three times daily. 30 capsule 12/27/2020 06/23/2021 Discontinued (Course of therapy completed) Comment on above: Take 1 capsule by mo [facility] three times daily. ciclopirox 80 mg/ml topical solution (8 sources) Start: 07-24-2022 Ciclopirox (LOPROX) 8 % solution Indications: Onychomycosis Apply to affected area daily at bedtime. 6.6 mL 11 07/24/2022 Active Start: 08-03-2020 End: 01-12-2022 Ciclopirox (LOPROX) 8 % solu tion Indications: Onychomycosis Apply to affected area daily at bedtime. 6.6 mL 11 08/03/2020 11/20/2021 Discontinued Comment on above: Apply to affected ar ea daily at bedtime. 0.3 ml enoxaparin sodium 100 mg/ml prefilled syringe (6 sources) Low Molecular Weight Heparin Start: 3 End: 3 Enoxaparin 30 mg/0.3 mL Syringe Discontinued 30 mg SC DAILY 4.2 14 0 January 17, 2023 12:00am February 04, 2023 11:02am furosemide 20 mg oral tablet (1 source) Loop Diuretic Start: 3 End: 4 take 1 tablet by mouth once daily furosemide (LASIX) 20 mg tablet Indications: Edema, unspecified type Take 1 tablet by mouth once daily. 30 tablet 2 03/20/2023 07/05/2023 Discontinued Comment on above: Take 1 tablet by rand once daily. multivitamin tablet (3 sources) Start: 3 End: 2 take 1 tablet by mouth once daily multivitamin tablet Take 1 tablet by mouth once daily. 0 09/16/2012 06/23/2021 Discontinued Comment on above: Take 1 tablet by rand once daily. Problems Active Problems Problem Classification Problem Date Documented Da te Episodic/Chronic Cancer of prostate (20 sources) Malignant tumor of prostate; Translations: [Malignant neoplasm of prostate] Onset: 4 11-20-2013 Chronic Deficiency and other anemia (1 source) Anemia; Translations: [Anemia, unspecified] 03-15-2023 Episodic Esophageal disorders (1 source) Gastroesophageal reflux disease without esophagitis; Translations: [Gastro-esophageal reflux disease without esophagitis] 06-17-2024 Chronic Heart valve disorders (18 sources) Aortic incompetence, non-rheumatic ; Translations: [Nonrheumatic aortic (valve) insufficiency] Onset: 3 03-18-2023 Chronic Infective arthritis and osteomyelitis (except that caused by tuberculosis or sexually transmitted disease) (2 sources) Acute osteomyelitis of lower leg; Translations: [Other acute osteomyelitis, unspecified tibia and fibula] 08-25-2024 Chronic Mycoses (1 source) Onychomycosis; Translations: [Tinea unguium] Episodic Other congenital anomalies (2 sources) Porokeratosis; Translations: [Other specified congenital malformations of skin] 06-17-2024 Chronic Other congenital anomalies (1 source) Other specified congenital malformations of skin; Translations: [Porokeratosis] Onset: 5 Chronic Other connective tissue disease (4 sources) Pain in right lower limb; Translations: [Pain in right leg] 08-23-2024 Episodic Other connective tissue disease (2 sources) Pain of right lower leg; Translations: [Pain in right lower leg] 08-25-2024 Episodic Other connective tissue disease (1 source) Pain in right leg; Translations: [Pain in right leg] Onset: 5 Episodic Other connective tissue disease (1 source) Pain in right lower leg; Translations: [Pain in right lower leg] Onset: 5 Episodic Other ear and sense organ disorders (2 sources) Ear lesion; Translations: [Unspecified disorder of ear, unspecified ear] Episodic Other gastrointestinal disorders (8 sources) Dysphagia; Translations: [Dysphagia, unspecified] Episodic Other lower respiratory disease (2 sources) Rib pain; Translations: [Pleurodynia] Episodic Other lower respiratory disease (4 sources) Chronic cough; Translations: [Chronic cough] Episodic Other non-traumatic joint disorders (1 source) Shoulder pain; Translations: [Pain in right shoulder] Episodic Other non-traumatic joint disorders (1 source) Pain in right shoulder; Translations: [Pain in joint, shoulder region] 06-23-2021 Episodic Other non-traumatic joint disorders (1 source) Hip pain; Translations: [Pain in left hip] 04-12-2020 Episodic Other screening for suspected conditions (not mental disorders or infectious disease) (5 sources) Plain X-ray result abnormal; Translations: [Abnormal findings on diagnostic imaging of other specified body structures] Onset: 5 09-28-2024 Chronic Other upper respiratory infections (1 source) Acute upper respiratory infection; Translations: [Acute upper respiratory infection, unspecified] 11-19-2023 Episodic Peripheral and visceral atherosclerosis (11 sources) Superior mesenteric vein thrombosis ; Translations: [Acute infarction of intestine, part and extent unspecified] 01-12-2023 Episodic Comment on above: Patient on day 11 of 14 for postoperative Lovenox given finding of SMV thrombus on CT imaging. I am encouraged that patient is not having any postprandial discomfort and reports that he is feeling better than previously. Residual codes; unclassified (1 source) Other specified health status; Translations: [Failure of outpatient treatment] 10-01-2024 Episodic Skin and subcutaneous tissue infections (5 sources) Cellulitis of skin; Translations: [Cellulitis, unspecified] Onset: 5 09-28-2024 Episodic Superficial injury; contusion (9 sources) Blister of foot without infection; Translations: [Blister (nonthermal), left foot, initial encounter] Onset: 5 02-04-2023 Episodic Past or Other Problems Problem Classification Problem Date Documented Da te Episodic/Chronic Intestinal obstruction without hernia (20 sources) Volvulus of the small bowel; Translations: [Volvulus] Onset: 03-13-2023 01-12-2023 Episodic Comment on above: Patient reports norm al bowel function and tolerance of a diet following exploratory laparotomy on 01/12/2023. At this time he is cleared to resume a normal diet, but is encouraged to do so in a gradual fashion as he readily admits to frequent high-fiber foods. I have encouraged him to additionally work to incorporate more protein in his diet given his prior weight loss, current needs to heal a laparotomy wound, as well as his left foot wound. Lastly, regarding his incision I have encouraged him to make use of triple antibiotic ointment once daily to keep the wound covered and protected until it is fully healed. Given that this is a laparotomy wound I have encouraged him to refrain from any heavy lifting for a full 4 weeks postop Open wounds of extremities (20 sources) Injury of lower extremity; Translations: [Unspecified open wound, right lower leg, initial encounter] Onset: 03-02-2021 01-12-2021 Episodic Other and unspecified benign neoplasm (20 sources) Polyp of colon; Translations: [Polyp of colon] Onset: 11-25-2012 11-25-2012 Episodic Other connective tissue disease (20 sources) Pain in lower limb; Translations: [Pain in leg, unspecified] Onset: 03-13-2023 02-02-2021 Episodic Other gastrointestinal disorders (3 sources) Dysphagia, unspecified; Translations: [Dysphagia, unspecified type] Onset: 03-22-2022 Episodic Other gastrointestinal disorders (15 sources) Oropharyngeal dysphagia; Translations: [Dysphagia, oropharyngeal phase] Onset: 12-26-2023 12-26-2023 Episodic Other screening for suspected conditions (not mental disorders or infectious disease) (7 sources) Patient encounter status; Translations: [Encounter for screening for lipoid disorders] Onset: 06-17-2024 Episodic Residual codes; unclassified (1 source) Edema; Translations: [Edema, unspecified] 07-05-2023 Episodic Unclassified (4 sources) Injury of right leg 08-25-2024 Results Test Name Value Interpretation Reference Range Facility Absolute lymphocyte countOrd ered By: Rolando Christina on 10-01-2024 Lymphocytes Auto (Unsp spec) [#/Vol] 0.80 10*3/uL Low 0.83-4.51 [facility] Absolute neutrophil countOrd ered By: Rolando Christina on 10-01-2024 Neutrophils (Bld) [#/Vol] 2.3 10*3/uL 2.0-7.7 [facility] Anion gap in Serum or Plasma Ordered By: Rolando Christina on 10-01-2024 Anion gap [Moles/Vol] 10 mmol/L 5-15 [facility] Automated lymphocyte count a s percentage of total leukocytesOrdered By: Rolando Christina on 10-01-2024 Lymphocytes/100 WBC Auto (Unsp spec) 23.3 % 19-41 [facility] BUN/creatinine ratioOrdered By: Rolando Christina on 10-01-2024 Urea nitrogen/Creatinine [Mass ratio] 21.5 mg/mg High 10-20 [facility] Basophil percentageOrdered B y: Rolando Christina on 10-01-2024 Basophils/100 WBC (Bld) 0.6 % 0-1 [facility] Carbon dioxide, total [Moles /volume] in Central venous bloodOrdered By: Rolando Christina on 10-01-2024 CO2 [Moles/Vol] 22.1 mmol/L 21.0-32.0 [facility] Chloride assayOrdered By: Blanco Christina on 10-01-2024 Chloride [Moles/Vol] 105 mmol/L 98-108 [facility] Eosinophil percentageOrdered By: Rolando Christina on 10-01-2024 Eosinophils/100 WBC (Bld) 0.6 % 0-5 [facility] Erythrocyte distribution wid th ratioOrdered By: Rolando Christina on 10-01-2024 Erythrocyte distribution width (RBC) [Ratio] 12.3 % 11.6-14.6 [facility] Erythrocyte distribution wid th standard deviationOrdered By: Rolando Christina on 10-01-2024 Erythrocyte distribution width (RBC) [Ratio] 43.2 fl 35.1-43.9 [facility] Erythrocyte sedimentation ra teOrdered By: Rolando Christina on 10-01-2024 ESR (Bld) [Velocity] 1 mm/h 0-20 [facility] Glomerular filtration rate ( GFR) estimation/1.73 sq m using serum, plasma, or whole bOrdered By: Rolando Christina on 10-01-2024 GFR/1.73 sq M.predicted among non-blacks MDRD (S/P/Bld) [Vol rate/Area] 85 mL/min/{1.73_m2} >60 [facility] Comment on above: mL/min/1.73m2 CKD-EP I Creatinine Equation (2020) Hematocrit Auto (Bld) [Volum e fraction]Ordered By: Rolando Christina on 10-01-2024 Hematocrit (Bld) [Volume fraction] 41.2 % 40-54 [facility] Hemoglobin measurementOrdere d By: Rolando Christina on 10-01-2024 Hemoglobin (Bld) [Mass/Vol] 14.1 g/dL 13.0-16.5 [facility] Immature granulocytes/100 WB C Auto (Bld)Ordered By: Rolando Christina on 10-01-2024 Immature granulocytes/100 WBC (Bld) 0.000 % 0.0-0.9 [facility] Comment on above: IG% - Immature Granu locytes (promyelocytes, myelocytes and metamyelocytes) > 1% indicates that a LEFT SHIFT is Present. MCV (mean corpuscular volume ) determinationOrdered By: Rolando Christina on 10-01-2024 MCV (RBC) [Entitic vol] 95.8 fL High 80-94 [facility] MR Lower leg - right ANMOL felipe 10-01-2024 IMPRESSION: SOFT TISSUE ULCERATION ALONG THE MEDIAL DISTAL TIBIA WITH ACUTE OSTEOMYELITIS INVOLVING THE MEDIAL TIBIAL CORTEX. NO MARROW REPLACEMENT ON TODAY'S EXAM. NO FLUID COLLECTION. SPLIT TEAR OF THE PERONEUS BREVIS TENDON. Neon Sign Mechanic: PSCB Transcribe Date/Time: Sep 30 2024 11:54P Dictated by : TORO ROMANO DO This examination was interpreted and the report reviewed and electronically signed by: TORO ROMANO DO on Oct 01 2024 12:05AM [facility] DIVISION OF RADIOLOGY * * *Final Report* * * DATE OF EXAM: Sep 30 2024 4:15PM [facility] 0225 - MRI LOWER LEG WO IVCON RT / PROCEDURE REASON: multiple diagnoses * * * * Physician Interpretation * * * * EXAMINATION: MRI LOWER LEG WO IVCON RT HISTORY: RIGHT LEG WOUND; RE-EVALUATION; RET LEG WOUND SLOW HEALING; ABNORMAL XRAY Wound of right lower extremity, subsequent encounter Cellulitis of skin Abnormal x-ray . TECHNIQUE: MRI LOWER LEG WO IVCON RT COMPARISON: Radiograph 08/25/2024 RESULT: Soft tissue ulceration along the anteromedial distal leg digit noted by a skin marker. Mild edema within the underlying subcutaneous fat. T1 weighted images demonstrates a focal area of cortical thinning measuring 0.8 cm subjacent to the ulceration which correlates to an area of periosteal reaction on prior radiograph. No evidence of marrow replacement in the RIGHT tibia or fibula. No significant marrow edema like signal. Severe tibiotalar joint space narrowing medially with small subchondral cystic changes. 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 Mild T2 signal hyperintensity within the anterior posterior compartment musculature which is likely related to mild fatty atrophy. No intramuscular fluid collection or mass. Intact Achilles tendon. Flattening of the peroneus brevis tendon at the level of the retromalleolar groove consistent with a split tear. No tenosynovitis in the RIGHT leg. DIVISION OF RADIOLOGY Provider, [facility] - 10/01/2024 * * *Final Report* * * DATE OF EXAM: Sep 30 2024 4:15PM [facility] 0225 - MRI LOWER LEG WO IVCON RT / PROCEDURE REASON: multiple diagnoses * * * * Physician Interpretation * * * * EXAMINATION: MRI LOWER LEG WO IVCON RT HISTORY: RIGHT LEG WOUND; RE-EVALUATION; RET LEG WOUND SLOW HEALING; ABNORMAL XRAY Wound of right lower extremity, subsequent encounter Cellulitis of skin Abnormal x-ray . TECHNIQUE: MRI LOWER LEG WO IVCON RT COMPARISON: Radiograph 08/25/2024 RESULT: Soft tissue ulceration along the anteromedial distal leg digit noted by a skin marker. Mild edema within the underlying subcutaneous fat. T1 weighted images demonstrates a focal area of cortical thinning measuring 0.8 cm subjacent to the ulceration which correlates to an area of periosteal reaction on prior radiograph. No evidence of marrow replacement in the RIGHT tibia or fibula. No significant marrow edema like signal. Severe tibiotalar joint space narrowing medially with small subchondral cystic changes. 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 Mild T2 signal hyperintensity within the anterior posterior compartment musculature which is likely related to mild fatty atrophy. No intramuscular fluid collection or mass. Intact Achilles tendon. Flattening of the peroneus brevis tendon at the level of the retromalleolar groove consistent with a split tear. No tenosynovitis in the RIGHT leg. IMPRESSION IMPRESSION: SOFT TISSUE ULCERATION ALONG THE MEDIAL DISTAL TIBIA WITH ACUTE OSTEOMYELITIS INVOLVING THE MEDIAL TIBIAL CORTEX. NO MARROW REPLACEMENT ON TODAY'S EXAM. NO FLUID COLLECTION. SPLIT TEAR OF THE PERONEUS BREVIS TENDON. Neon Sign Mechanic: BOBO Transcribe Date/Time: Sep 30 2024 11:54P Dictated by : TORO ROMANO DO This examination was interpreted and the report reviewed and electronically signed by: TORO ROMANO DO on Oct 01 2024 12:05AM EST [facility] MR Lower leg - right WO cont rastOrdered By: [facility] Provider on 10-01-2024 [facility] Mean corpuscular hemoglobin (MCH) determinationOrdered By: Rolando Christina on 10-01-2024 MCH (RBC) [Entitic mass] 32.8 pg High 27.0-32.0 [facility] Mean corpuscular hemoglobin concentration (MCHC) determinationOrdered By: Rolando Christina on 10-01-2024 MCHC (RBC) [Mass/Vol] 34.2 g/dL 32-36 [facility] Mean platelet volume determi nationOrdered By: Rolando Christina on 10-01-2024 Platelet mean volume (Bld) [Entitic vol] 8.7 fL 6.2-12.0 [facility] Monocyte percentageOrdered B y: Rolando Christina on 10-01-2024 Monocytes/100 WBC (Bld) 8.4 % 0-10 [facility] Neutrophil percentageOrdered By: Rolando Christina on 10-01-2024 Neutrophils/100 WBC (Bld) 67.1 % 47-70 [facility] Nucleated red blood cell per centageOrdered By: Rolando Christina on 10-01-2024 Nucleated RBC/100 WBC (Bld) [Ratio] 0 % 0-5 [facility] Platelet countOrdered By: Blanco Christina on 10-01-2024 Platelets (Bld) [#/Vol] 185 10*3/uL 150-450 [facility] Potassium measurement (mass/ volume)Ordered By: Rolando Christina on 10-01-2024 Potassium (Unsp spec) [Mass/Vol] 4.1 mmol/L 3.3-5.1 [facility] RBC Auto (Bld) [#/Vol]Ordere d By: Rolando Christina on 10-01-2024 RBC (Bld) [#/Vol] 4.30 10*6/uL Low 4.6-6.2 [facility] Serum creatinine measurement (mass/volume)Ordered By: Rolando Christina on 10-01-2024 Creatinine [Mass/Vol] 0.84 mg/dL 0.70-1.20 [facility] Serum glucose measurement (m ass/volume)Ordered By: Rolando Christina on 10-01-2024 Glucose [Mass/Vol] 91 mg/dL 70-99 [facility] Serum or plasma C reactive p rotein measurement (mass/volume)Ordered By: Rolando Christina on 10-01-2024 CRP [Mass/Vol] mg/L 0.0-3.0 [facility] Serum or plasma calcium hugo urement (mass/volume)Ordered By: Rolando Christina on 10-01-2024 Calcium [Mass/Vol] 9.1 mg/dL 7.6-11.0 [facility] Serum or plasma urea nitroge n measurement (mass/volume)Ordered By: Rolando Christina on 10-01-2024 Urea nitrogen [Mass/Vol] 18 mg/dL 4-19 [facility] Sodium levelOrdered By: Lopez Christina on 10-01-2024 Sodium [Moles/Vol] 138 mmol/L 133-145 [facility] White blood cell (WBC) count Ordered By: Rolando Christina on 10-01-2024 WBC (Bld) [#/Vol] 3.4 10*3/uL Low 4.4-11.0 [facility] MR Lower leg - right WO jaskaran rosaleston 09-30-2024 Radiology Study observation (narrative) [facility] Basic metabolic 2000 panelon 09-28-2024 Anion gap [Moles/Vol] 9 mmol/L Normal 8-15 [facility] Comment on above: Order Comment: Speci men Type: BLOOD SPECIMENOrdering Facility: [facility] Address: [address] [place] [address] Performed By: #### 2 4321-2 ####[facility] LABIA [id number] [place] [address] [place] Calcium [Mass/Vol] 8.8 mg/dL Normal 8.5-10.2 [facility] Comment on above: Order Comment: Speci men Type: BLOOD SPECIMENOrdering Facility: [facility] Address: [address] [place] [address] Performed By: #### 2 4321-2 ####[facility] LABIA [id number] [place] [id number] [place] Chloride [Moles/Vol] 107 mmol/L Normal 98-107 [facility] Comment on above: Order Comment: Speci men Type: BLOOD SPECIMENOrdering Facility: [facility] Address: [address] [place] [address] Performed By: #### 2 4321-2 ####[facility] LABCLIA [id number] [address] [address] [place] CO2 [Moles/Vol] 24 mmol/L Normal 22-30 [facility] Comment on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 caps 08/25/24 U nknown Rx Allergy/AdvReac Type Severity Reaction Status Date / Time No Known Allergies Allergy Verified 08/25/24 15:19 Surgical History S/P exploratory laparotomy Hx of appendectomy Social History Smoking Status: Former smoker ROS ROS ED Constitutional Constitutional ED: Denies chills, fever(s) or sweats Cardiovascular Cardiovascular: Denies chest pain Respiratory/Chest Respiratory/Chest: Denies cough or dyspnea Gastrointestinal Gastrointestinal: Denies nausea or vomiting Musculoskeletal Musculoskeletal: Reports other Details: right lower leg pain Integumentary Reports other Details: wound to right lower leg Neurologic Neurologic: Denies paresthesias or weakness Hematologic/Lymphatic Hematologic/Lymphatic: Denies easy bleeding or easy bruising EXAM Physical Exam Const Vital Signs: 08/25/24 15:19 08/25/24 15:24 08/25/24 17:11 Temperature 97.6 F L 97.6 F L 98.8 F Temperature Source Oral Oral Oral Pulse Rate 68 68 60 Respiratory Rate 18 18 16 Blood Pressure 158/78 H 158/78 H 144/69 H Blood Pressure Mean 104 104 94 Pulse Ox 99 99 99 Oxygen Delivery Method Room Air Room Air Room Air 08/25/24 17:19 08/25/24 18:00 08/25/24 19:00 Temperature 98.4 F Temperature Source Oral Pulse Rate 62 61 64 Respiratory Rate 17 17 16 Blood Pressure 144/68 H 143/74 H 148/77 H Blood Pressure Mean 93 97 100 Pulse Ox 99 99 97 Oxygen Delivery Method Room Air Room Air Room Air 08/25/24 21:00 08/25/24 21:49 Temperature 98.4 F Temperature Source Pulse Rate 62 62 Respiratory Rate 18 18 Blood Pressure 152/74 H 152/74 H Blood Pressure Mean 100 100 Pulse Ox 95 95 Oxygen Delivery Method Room Air Positive well nourished and well developed General Appearance ED: well developed and NAD HEENT Reports moist mucous membranes Chest Wall inspection of chest normal Resp normal respiratory effort and clear to auscultation bilaterally Cardio regular rate and regular rhythm Cardio Narrative: 2+ radial and DP pulses present. Extremity Extremity Narrative: Mild edema noted of the right distal leg/ankle area. No short arc range of motion pain present. Compartments are soft. No palpable cords present. Neuro oriented x3 Sensorium / Orientation: alert Motor Exam: Negative for general weakness Psych mental status grossly normal Skin Skin Narrative: Patient has approximately 2 cm circumferential area of scab just medial to the right distal anterior kathleen. Mild associated erythema around this but no associated warmth. Negative Nikolsky sign. It is tender to pal (more content not included)... Normal [facility] Eosinophil percentageOrdered By: Abby Alas on 08-25-2024 Eosinophils/100 WBC (Bld) 1.3 % 0-5 [facility] Erythrocyte Sed Rateon 08-25 SED RATE 3 mm/hr Normal 0-20 [facility] Comment on above: Performed By: #### L 100.0100, L501.6710, L500.2500, L101.9900 #### [facility] [address] [place], [place], [id number] Erythrocyte distribution wid th ratioOrdered By: Abby Alas on 08-25-2024 Erythrocyte distribution width (RBC) [Ratio] 12.1 % 11.6-14.6 [facility] Erythrocyte distribution wid th standard deviationOrdered By: Abby Alas on 08-25-2024 Erythrocyte distribution width (RBC) [Ratio] 43.4 fl 35.1-43.9 [facility] Erythrocyte sedimentation ra teOrdered By: Abby Alsa on 08-25-2024 ESR (Bld) [Velocity] 3 mm/h 0-20 [facility] Extremity Lower without Cont raon 08-25-2024 Extremity Lower without Contra [facility] [address] [place], [place] [address] Extremity Lower without Contra MR#: [id number] Acct: [id number] Name: ROXANA MUIR Rep #: [id number] : 1935 M 88 From: Donato Sanchez DO PCP: Dr. Eduardo Infante MD Status: REG ER Study: Extremity Lower without Contra Date of Exam: 0 08/25/24 Exam# [id number] Ordering Dr: Abby Alas DO PROCEDURE: EXTREMITY LOWER WITHOUT CONTRA 08/25/2024 REASON FOR EXAM: CONCERN FOR OSTEOMYOLYITIS, LEG WOUND TECHNIQUE: Axial CT images of the right lower extremity obtained without intravenous contrast. Coronal and Sagittal reconstruction series were provided. One or more dose reduction techniques were used (e.g., Automated exposure control, adjustment of the mA and/or kV according to patient size, use of iterative reconstruction technique RADIATION DOSE SUMMARY: CTDlvol: 15 mGy DLP: 914 mGycm COMPARISON: None FINDINGS: Bones: No acute fracture or dislocation. Heterogeneous appearance of the osseous structures. No bony erosion. Joints: Joint spaces are preserved. Soft Tissues: Mild soft tissue edema. No abnormal collection. CT/Extremity Lower without Contra IMPRESSION: No radiographic evidence of osteomyelitis. If there is continued clinical suspicion, MRI is recommended for further characterization. Reading Location: [facility] CC: Dr. Abby Alas DO; Dr. Eduardo Infante MD Neon Sign Mechanic: Signed Normal [facility] Glomerular filtration rate ( GFR) estimation/1.73 sq m using serum, plasma, or whole bOrdered By: Abby Alas on 08-25-2024 GFR/1.73 sq M.predicted among non-blacks MDRD (S/P/Bld) [Vol rate/Area] 74 mL/min/{1.73_m2} >60 [facility] Comment on above: mL/min/1.73m2 CKD-EP I Creatinine Equation (2020) Hematocrit Auto (Bld) [Volum e fraction]Ordered By: Abby Alas on 08-25-2024 Hematocrit (Bld) [Volume fraction] 41.6 % 40-54 [facility] Hemoglobin measurementOrdere d By: Abby Alas on 08-25-2024 Hemoglobin (Bld) [Mass/Vol] 14.4 g/dL 13.0-16.5 [facility] Immature granulocytes/100 WB C Auto (Bld)Ordered By: Abby Alas on 08-25-2024 Immature granulocytes/100 WBC (Bld) 0.200 % 0.0-0.9 [facility] Comment on above: IG% - Immature Granu locytes (promyelocytes, myelocytes and metamyelocytes) > 1% indicates that a LEFT SHIFT is Present. MCV (mean corpuscular volume ) determinationOrdered By: Abby Alas on 08-25-2024 MCV (RBC) [Entitic vol] 97.2 fL High 80-94 [facility] Mean corpuscular hemoglobin (MCH) determinationOrdered By: Abby Alas on 08-25-2024 MCH (RBC) [Entitic mass] 33.6 pg High 27.0-32.0 [facility] Mean corpuscular hemoglobin concentration (MCHC) determinationOrdered By: Abby Alas on 08-25-2024 MCHC (RBC) [Mass/Vol] 34.6 g/dL 32-36 [facility] Mean platelet volume determi nationOrdered By: Abby Alas on 08-25-2024 Platelet mean volume (Bld) [Entitic vol] 8.9 fL 6.2-12.0 [facility] Monocyte percentageOrdered B y: Abby Alas on 08-25-2024 Monocytes/100 WBC (Bld) 8.8 % 0-10 [facility] Neutrophil percentageOrdered By: Abby Alas on 08-25-2024 Neutrophils/100 WBC (Bld) 70.5 % High 47-70 [facility] No Panel Informationon 08-25 Interpretation and review of laboratory results Normal [facility] Nucleated red blood cell per centageOrdered By: Abby Alas on 08-25-2024 Nucleated RBC/100 WBC (Bld) [Ratio] 0 % 0-5 [facility] Platelet countOrdered By: Lawrence Alas on 08-25-2024 Platelets (Bld) [#/Vol] 198 10*3/uL 150-450 [facility] Potassium measurement (mass/ volume)Ordered By: Abby Alas on 08-25-2024 Potassium (Unsp spec) [Mass/Vol] 4.1 mmol/L 3.3-5.1 [facility] RBC Auto (Bld) [#/Vol]Ordere d By: Abby Alas on 08-25-2024 RBC (Bld) [#/Vol] 4.28 10*6/uL Low 4.6-6.2 [facility] Serum creatinine measurement (mass/volume)Ordered By: Abby Alas on 08-25-2024 Creatinine [Mass/Vol] 0.99 mg/dL 0.70-1.20 [facility] Serum glucose measurement (m ass/volume)Ordered By: Abby Alas on 08-25-2024 Glucose [Mass/Vol] 91 mg/dL 70-99 [facility] Serum or plasma C reactive p rotein measurement (mass/volume)Ordered By: Abby Alas on 08-25-2024 CRP [Mass/Vol] 4.08 mg/L High 0.0-3.0 [facility] Serum or plasma calcium hugo urement (mass/volume)Ordered By: Abby Alas on 08-25-2024 Calcium [Mass/Vol] 9.2 mg/dL 7.6-11.0 [facility] Serum or plasma urea nitroge n measurement (mass/volume)Ordered By: Abby Alas on 08-25-2024 Urea nitrogen [Mass/Vol] 20 mg/dL High 4-19 [facility] Sodium levelOrdered By: Shannon Alas on 08-25-2024 Sodium [Moles/Vol] 140 mmol/L 133-145 [facility] URIC ACIDon 08-25-2024 Urate [Mass/Vol] 5.3 mg/dL 4.0 - 8.1 mg/dL [facility] Urate SerPl-mCncon Urate [Mass/Vol] 5.3 mg/dL Normal 4.0-8.1 [facility] Comment on above: Order Comment: Speci men Type: BLOOD SPECIMENOrdering Facility: [facility] Address: [address] [place] [address] Performed By: #### 3 081, 1987-07 ####[facility] LABCLIA [id number] [address] [place] White blood cell (WBC) count Ordered By: Abby Alas on 08-25-2024 WBC (Bld) [#/Vol] 5.5 10*3/uL 4.4-11.0 [facility] XR TIBIA FIBULA 2V AP/LAT RT on 08-25-2024 XR TIBIA FIBULA 2V AP/LAT RT * * *Final Report* * * DATE OF EXAM: Aug 25 2024 2:01PM WOX [id number] - XR TIBIA FIBULA 2V AP/LAT RT / PROCEDURE REASON: Wound of right lower extremity, subsequent encounter * * * * Physician Interpretation * * * * TITLE: XR TIBIA FIBULA 2V AP/LAT RT CLINICAL INDICATION: Wound TECHNIQUE: Frontal and lateral radiographs of the right tibia/fibula COMPARISON: Radiograph dated 01/05/2021 FINDINGS: No soft tissue gas or radiopaque foreign body. Phleboliths in the soft tissues of the mid calf. No acute fracture or dislocation identified. Osseous demineralization. Suggestion of subtle periosteal reaction along the medial aspect of mid tibial shaft raises suspicion for the possibility of osteomyelitis. IMPRESSION: Findings raising suspicion for the possibility of tibial osteomyelitis. Clinically correlate and consider further evaluation with MRI. Neon Sign Mechanic: PSCB Transcribe Date/Time: Aug 25 2024 2:01P Dictated by : MONCHO RIOJAS MD This examination was interpreted and the report reviewed and electronically signed by: MONCHO RIOJAS MD on Aug 25 2024 2:03PM EST [id number] Normal [facility] XR Tibia and Fibula - right AP and Lateralon 08-25-2024 IMPRESSION: Findings raising suspicion for the possibility of tibial osteomyelitis. Clinically correlate and consider further evaluation with MRI. Neon Sign Mechanic: [facility] Transcribe Date/Time: Aug 25 2024 2:01P Dictated by : MONCHO RIOJAS MD This examination was interpreted and the report reviewed and electronically signed by: MONCHO RIOJAS MD on Aug 25 2024 2:03PM EST DIVISION OF RADIOLOGY * * *Final Report* * * DATE OF EXAM: Aug 25 2024 2:01PM WOX [id number] - XR TIBIA FIBULA 2V AP/LAT RT / PROCEDURE REASON: Wound of right lower extremity, subsequent encounter * * * * Physician Interpretation * * * * TITLE: XR TIBIA FIBULA 2V AP/LAT RT CLINICAL INDICATION: Wound TECHNIQUE: Frontal and lateral radiographs of the right tibia/fibula COMPARISON: Radiograph dated 01/05/2021 FINDINGS: No soft tissue gas or radiopaque foreign body. Phleboliths in the soft tissues of the mid calf. No acute fracture or dislocation identified. Osseous demineralization. Suggestion of subtle periosteal reaction along the medial aspect of mid tibial shaft raises suspicion for the possibility of osteomyelitis. DIVISION OF RADIOLOGY Provider, [facility] - 08/25/2024 * * *Final Report* * * DATE OF EXAM: Aug 25 2024 2:01PM WOX [id number] - XR TIBIA FIBULA 2V AP/LAT RT / PROCEDURE REASON: Wound of right lower extremity, subsequent encounter * * * * Physician Interpretation * * * * TITLE: XR TIBIA FIBULA 2V AP/LAT RT CLINICAL INDICATION: Wound TECHNIQUE: Frontal and lateral radiographs of the right tibia/fibula COMPARISON: Radiograph dated 01/05/2021 FINDINGS: No soft tissue gas or radiopaque foreign body. Phleboliths in the soft tissues of the mid calf. No acute fracture or dislocation identified. Osseous demineralization. Suggestion of subtle periosteal reaction along the medial aspect of mid tibial shaft raises suspicion for the possibility of osteomyelitis. IMPRESSION IMPRESSION: Findings raising suspicion for the possibility of tibial osteomyelitis. Clinically correlate and consider further evaluation with MRI. Neon Sign Mechanic: PSCB Transcribe Date/Time: Aug 25 2024 2:01P Dictated by : MONCHO RIOJAS MD This examination was interpreted and the report reviewed and electronically signed by: MONCHO RIOJAS MD on Aug 25 2024 2:03PM EST [facility] Radiology Study observation (narrative) [facility] XR Tibia and Fibula - right AP and LateralOrdered By: [facility] Provider on 08-25-2024 [facility] Venous Duplex US, Unilateral on 08-24-2024 Venous Duplex US, Unilateral [facility] [address] [place] [address] Venous Duplex US, Unilateral 08/24/24 1048 MR#: [id number] Acct: [id number] Name: ROXANA MUIR Rep #: [id number] : 1935 88 From: Easton Devine MD Attending Dr: Dr. Yogesh Bloom, Status: REG CLI Ordering Dr: Yogesh Bloom DO Date: 08/24/24 Location: Sex: M C Admitted: Reason For Study Reason For Study: Right leg pain RIGHT LEFT GSV is normal. CFV is compressible, spontaneous, phasic, competent, CFV is compressible, spontaneous, phasic, competent and demonstrates normal augmentation. and demonstrates normal augmentation. FV is compressible, spontaneous, phasic, competent and demonstrates normal augmentation. POP V is compressible, spontaneous, phasic, competent and demonstrates normal augmentation. T/P Trunk is compressible. PTV is compressible. RT PerV is compressible. Procedure This is a venous duplex using B-mode, color flow and spectral Doppler. Exam performed in department. A preliminary report was called and/or faxed to PCP: Dr. Infante. Seen as next day ED patient. VL/Venous Duplex US, Unilateral Interpretation Summary Deep veins of the right lower extremity are patent and compressible segmentally. There is no evidence of right lower extremity deep vein thrombosis. Valvular competence appears intact within the proximal deep venous system on the right . The right great saphenous vein appears patent and compressible segmentally. The left common femoral vein is patent and compressible . Ordering Physician: Yogesh Bloom Referring Physician: Eduardo Infante Performed By: Hilda Gibbs Mary 08/24/24 1219 Date Easton Devine MD CC: Dr. Yogesh Bloom DO; Dr. Eduardo Infante MD Date Dictated: 08/24/24 1048 Date Transcribed: 08/24/24 121 Neon Sign Mechanic: Signed Normal [facility] Venous duplex ultrasound rep ortOrdered By: Easton Devine on 08-24-2024 US Vein [facility] [address] [place] [address] Venous Duplex US, Unilateral 08/24/24 1048 MR#: [id number] Acct: [id number] Name: ROXANA MUIR Rep #:[id number] : 1935 88 From: Easton Devine MD Attending Dr: Dr. Yogesh Bloom DO Statu s: REG CLI Ordering Dr: Yogesh Bloom DO Date: 5 Location: Sex: M C Admitted: Reason For Study Reason For Study: Right leg pain RIGHT LEFT GSV is normal. CFV is compressible, spontaneous, phasic, competent, CFV is compressible, spontaneous, phasic, competent and demonstrates normal augmentation. and demonstrates normal augmentation. FV is compressible, spontaneous, phasic, competent and demonstrates normal augmentation. POP V is compressible, spontaneous, phasic, competent and demonstrates normal augmentation. T/P Trunk is compressible. PTV is compressible. RT PerV is compressible. Procedure This is a venous duplex using B-mode, color flow and spectral Doppler. Exam performed in department. A preliminary report was called and/or faxed to PCP: Dr. Infante. Seen as next day ED patient. VL/Venous Duplex US, Unilateral Interpretation Summary Deep veins of the right lower extremity are patent and compressible segmentally.There is no evidence of right lower extremity deep vein thrombosis. Valvular competence appears intact within the proximal deep venous system on the right . The right great saphenous vein appears patent and compressible segmentally. The left common femoral vein is patent and compressible . Ordering Physician: Yogesh Bloom Referring Physician: Eduardo Infante Performed By: Hilda Gibbs RVT 08/24/24 1219 Date _ Easton Devine MD CC: Dr. Yogesh Bloom DO; Dr. Eduardo Infante MD ~ Date Dictated: 08/24/24 1048 Date Transcribed: 08/24/24 1219 Neon Sign Mechanic: Signed [facility] Other Phone: Emergency Department Summary on 08-23-2024 Emergency Department Summary [facility] Medical Records Department [address] [place] [address] Emergency Department Summary 08/23/24 MR#: [id number] Acct: [id number] Name: ROXANA MUIR Rey Rep #: [id number] : 1935 88 From: Yogesh Esquivel PCP: Dr. Eduardo Infante MD Status:DEP ER Location: ED HPI History of Present Illness Chief Complaint: Lower Extremity Injury Informant: patient and spouse/S.O. Narrative Narrative: Presents here with spouse valuation the right leg pain. Noted more yesterday. He had injury to his right leg a month ago cannot remember how had a wound on it. States not fully healing. No fever chills no drainage. Swelling would come and go. More pain around that area yesterday. They evaluated Internet states could be blood clot. He does have varicose veins. No chest pains no shortness of breath. No history of DVT. Denies any history of neuropathy or diabetes. Prior similar symptoms: No PFSH PFSH Medical History Former smoker History of intestine removal Lower limb pain, anterior Wound of right lower extremity Allergy/AdvReac Type Severity Reaction Status Date / Time No Known Allergies Allergy Verified 08/23/24 15:51 Surgical History S/P exploratory laparotomy Hx of appendectomy Social History Smoking Status: Former smoker ROS ROS ED Constitutional Constitutional ED: Denies fever(s) Cardiovascular Cardiovascular: Denies chest pain Respiratory/Chest Respiratory/Chest: Denies cough Gastrointestinal Gastrointestinal: Denies diarrhea or vomiting Musculoskeletal Musculoskeletal: Reports none and other Details: Right leg pain Integumentary Reports wounds; Denies rash Neurologic Neurologic: Denies weakness EXAM Physical Exam Const Vital Signs: 08/23/24 15:47 Temperature 97.7 F L Temperature Source Oral Pulse Rate 65 Respiratory Rate 18 Blood Pressure 159/62 H Blood Pressure Mean 94 Pulse Ox 99 Oxygen Delivery Method Room Air Positive well nourished and well developed General Appearance ED: well developed HEENT normocephalic and atraumatic Eyes General Eye ED: Yes normal appearance of both eyes Neck full ROM Resp normal respiratory effort and normal air movement Cardio regular rate and regular rhythm GI soft to palpation Extremity Extremity Narrative: Right lower extremity: No medial thigh tenderness. Very minimal calf tenderness. Patient with quarter sized scab medial distal leg there is swelling distal to this. No drainage. No streaking. Pulses intact distally. Varicose veins medial aspect of the leg upper and lower however nontender along this region. Neuro oriented x3 Skin no rashes or lesions noted and no wounds MDM MDM MDM Narrative Medical decision making narrative: Interventions / MDM: Differential diagnosis: Right leg wound, right leg pain Diagnosis considered but do not suspect: Low clinical suspicion for DVT. Ultrasound ordered for outpatient testing. My EKG interpretation: N/A Imaging independently reviewed and interpreted by myself: N/A External documents reviewed: N/A Test considered but not ordered:N/A ED course: Vital stable nontoxic. Wound to his leg with no clinical infection. There is scabbing. I discussed wound care with the patient for this with daily dressings. Currently with weekend holiday no ultrasound available to address his concerns however my clinical suspicion is low. His pain is more anterior. There is no physical superficial thrombophlebitis either. I discussed can order for outpatient ultrasound tomorrow for concerns. All questions were answered. Re-evaluation: stable Disposition discussed with patient/family/significant other: Patient and spouse Case discussed with consulting clinician: N/A This note was generated with PeopleAdmin dictation software. It may contain incorrect words, spelling, and punctuation that were not noted in checking the note before signing. Discharge Plan Triage Chief Complaint: Lower Extremity Injury ED Provider: Yogesh Bloom Dx/Rx/DC Orders Clinical Impression: Pain in right leg, Wound of right lower extremity Instructions: ED Wound Care Other Ambulatory Orders: Venous Duplex US, Unilateral (Stat) Facility: [facility] - Location: [facility] Ordered By: Dr. Yogesh Bloom Primary Care Provider: Eduardo Infante Referrals: Eduardo Infante MD [Primary Care Provider] - 1 Week Activity Restrictions/Additional Instructions: Wound care as discussed for your leg wound. Return tomorrow for ultrasound of your right lower leg for your concerns. They are here from 8 AM to 1 PM. I would call to confirm good time to show (more content not included)... Normal [facility] CNOVon 08-03-2024 CNOV Office Visit (UCWSTR ) -- ROXANA MUIR ([id number]) 1935 M Date Time Provider Department 08/03/24 10:15 AM ESTUARDO JESUS [facility] During your visit today, we recorded the following information about you: Temperature Pulse Respiration Blood pressure 96.9 degrees 60/minute 16/minute 128/70 Weight 62.3 kg Estuardo Jesus MD 08/03/2024 10:29 AM Signed [facility] Subjective Roxana Muir is a 88 year old male. Patient presents with: Derm Problem: lesion on right ankle x 2 weeks Skin Lesion: Location: right ankle/kathleen Duration: couple weeks maybe, he does not recall what he did but is sure he hit it Pruritis/Pain: tender to touch Change: no change Drainage/blister/pustule/u lceration: scab and swelling without drainage or bleeding, no fever Treatment: none Has a past history of lesion in the area which required wound care consult with debridement. He is preparing for a trip to [place] and does not want to have an infection during his travel. Review of Systems Objective BP 128/70 Pulse 60 Temp 36.1 ?C (96.9 ?F) Resp 16 Wt 62.3 kg (137 lb 5.6 oz) SpO2 97% BMI 20.58 kg/m? Physical Exam Constitutional: Appearance: He is not ill-appearing. Musculoskeletal: Feet: Feet: Comments: 4 mm flat eschar right ankle anterior medial aspect. Less than 2 cm area petechia surrounding the eschar. Lesion and surrounding area are tender to palpation but without erythema, fluctuance, or induration.. Nontender pitting edema of the medial malleolus below. Trace edema of the kathleen similar to the left ankle. 5 mm white eschar medial ankle above the malleolus from remote injury. Neurological: Mental Status: He is alert. {ASSESSMENT/PLAN: 1. Abrasion, right lower leg, initial encounter - ICD9: 916.0, ICD10: S80.811A Right ankle/kathleen healing abrasion and contusion without signs of infection. Continue expectant management. Estuardo Jesus MD Differential Diagnoses - abrasion/contusion - cellulitis/abscess is less likely for the following reason(s): no erythema, induration, fluctuance, or constitutional symptoms of infection Procedures Allergies As of Date: 08/03/2024 Noted Allergy Reaction PENICILLINS 09/16/2012 16 - Unknown Date Reviewed: 08/03/2024 Reviewed by: Celia Kevin MA - Fully Assessed Reason for Visit: Derm Problem [33] Cmt: lesion on right ankle x 2 weeks Primary Visit Diagnosis:Abrasion, right lower leg, initial encounter [S80.811A] Prescriptions as of 08/03/2024 - famotidine (PEPCID) 20 mg tablet Take 1 tablet by mouth daily at bedtime. 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] 03/18/2023 Oropharyngeal dysphagia [R13.12] 12/26/2023 Level of Service: OFFICE/OUTPATIENT ESTABLISHED LOW MDM 20 MIN [72819] Encounter Status:Closed by ESTUARDO JESUS on 08/03/24 [facility] CNOVon 07-23-2024 CNOV Office Visit (PODIWS ) -- ROXANA MUIR ([id number]) 1935 M Date Time Provider Department 07/23/24 10:45 AM AKANKSHA CASTANONS During your visit today, we recorded the following information about you: Alison Sparks LPN 07/23/2024 12:45 PM Signed AMB ROOMING INTAKE FLOWSHEET DATA Pain Pain Level: 8 Pain Location: Foot-Right Description: Sharp, Stabbing Duration Amount of Time: 1 Duration Units: Minutes Frequency: Intermittent Intervention/Comfort measure: Declined Patient presents with: Right Foot - Follow Up, Callous, Pain UMBERTO Ricci Matthew 07/23/2024 11:20 AM Addendum Powerstep Original Full length. Can purchase at [facility] [employer] and boots,shoes and more here in [place], [employer] in [place] or [place]. Also can find in [place] in [facility]. Powersteps can also be purchased online, starting around $45.00 If you have a metatarsal or dancer pad for your feet apply the pad directly to the insole so you can interchange between your shoes. Find a shoe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 vascular redistribution to suggest pulmonary edema. Cardiomediastinal silhouette: Unchanged cardiomediastinal silhouette. Bones/Soft Tissues: The bony structures are osteopenic with degenerative change. No acute or bony destructive process noted. Accentuated dorsal kyphosis without acute compression deformity again noted. DIVISION OF RADIOLOGY Provider, [facility] - 01/12/2022 * * *Final Report* * * DATE OF EXAM: Jan 12 2022 3:20PM WOX 5291 - XR CHEST 2V FRONTAL/LAT / PROCEDURE REASON: Chronic cough * * * * Physician Interpretation * * * * EXAMINATION: CHEST RADIOGRAPH (2 VIEW FRONTAL & LATERAL) CLINICAL HISTORY: Chronic cough MQ: XC2_6 EXAM DATE/TIME: 01/12/2022 3:20 PM COMPARISON: Comparison is made to prior study dated 05 December 2021 RESULT: Lines, tubes, and devices: None. Lungs and pleura: The lungs are hyperinflated with stable chronic interstitial changes. Focal eventration right hemidiaphragm is unchanged. There is no focal consolidation or acute pleural process. There is no vascular redistribution to suggest pulmonary edema. Cardiomediastinal silhouette: Unchanged cardiomediastinal silhouette. Bones/Soft Tissues: The bony structures are osteopenic with degenerative change. No acute or bony destructive process noted. Accentuated dorsal kyphosis without acute compression deformity again noted. IMPRESSION IMPRESSION: Stable chest. No acute cardiopulmonary process. Neon Sign Mechanic: BOBO Transcribe Date/Time: Jan 12 2022 6:11P Dictated by : KARIN MCKENNA MD This examination was interpreted and the report reviewed and electronically signed by: KARIN MCKENNA MD on Jan 12 2022 6:12PM EST [facility] Radiology Study observation (narrative) [facility] XR Chest PA and LateralOrder ed By: [facility] Provider on 01-12-2022 [facility] XR RIBS/CHEST 3V AP RIB/OBLS /CXR RIGHTon 12-05-2021 [facility] XR Ribs - right Views and Ch est PAon 12-05-2021 IMPRESSION: No acute fracture of the right ribs Neon Sign Mechanic: BOBO Transcribe Date/Time: Dec 05 2021 11:36A Dictated by : SUNNI BAR MD This examination was interpreted and the report reviewed and electronically signed by: SUNNI BAR MD on Dec 05 2021 11:38AM EST DIVISION OF RADIOLOGY * * *Final Report* * * DATE OF EXAM: Dec 05 2021 11:28AM WOX 5244 - XR RIB/CHST 3V AP RIB/OBL/CHST R / PROCEDURE REASON: Rib pain on right side * * * * Physician Interpretation * * * * HISTORY: Rib pain on right side right-sided rib pain after falling in bath tub Posterior, , mcl, 8-12, fell against bath tub TECHNIQUE: PA chest in AP and oblique right ribs COMPARISON: None RESULT: Slight deformity of the posterior right seventh rib may be due to remote healed fracture. No acute fracture or bony destructive change. Lungs and pleura appear clear on the chest x-ray. The heart appears to be at about the upper limit of normal in size. DIVISION OF RADIOLOGY Provider, [facility] - 12/05/2021 * * *Final Report* * * DATE OF EXAM: Dec 05 2021 11:28AM WOX 5244 - XR RIB/CHST 3V AP RIB/OBL/CHST R / PROCEDURE REASON: Rib pain on right side * * * * Physician Interpretation * * * * HISTORY: Rib pain on right side right-sided rib pain after falling in bath tub Posterior, , mcl, 8-12, fell against bath tub TECHNIQUE: PA chest in AP and oblique right ribs COMPARISON: None RESULT: Slight deformity of the posterior right seventh rib may be due to remote healed fracture. No acute fracture or bony destructive change. Lungs and pleura appear clear on the chest x-ray. The heart appears to be at about the upper limit of normal in size. IMPRESSION IMPRESSION: No acute fracture of the right ribs [facility]on Sign Mechanic[facility] Transcribe Date/Time: Dec 05 2021 11:36A Dictated by : SUNNI BAR MD This examination was interpreted and the report reviewed and electronically signed by: SUNNI BAR MD on Dec 05 2021 11:38AM EST [facility] Radiology Study observation (narrative) [facility] XR Ribs - right Views and Ch est PAOrdered By: Ccf Provider on 12-05-2021 [facility] XR SHOULDER GENERAL 3V OR MO RE AP/TRUE AP/OTHER RIGHTon 06-23-2021 [facility] XR Shoulder - right 3 Viewso n 06-23-2021 IMPRESSION: No acute bony process, acromioclavicular degenerative changes. Neon Sign Mechanic: BOBO Transcribe Date/Time: Jun 23 2021 6:49P Dictated by : BROCK CARR MD This examination was interpreted and the report reviewed and electronically signed by: BROCK CARR MD on Jun 23 2021 6:52PM EST DIVISION OF RADIOLOGY * * *Final Report* * * DATE OF EXAM: Jun 23 2021 4:27PM WOX 5253 - XR SHLDR >/=3V AP/RAYSA AP/OTHR RT / PROCEDURE REASON: Acute pain of right shoulder * * * * Physician Interpretation * * * * HISTORY: Chronic right shoulder pain increasing over time without injury. Acute pain of right shoulder . TECHNIQUE: XR SHLDR >/=3V AP/RAYSA AP/OTHR RT Laterality: RIGHT Number of different views (projections): 3 COMPARISON: None RESULT: Normal alignment. No fracture. Benign irregularity of the contour of the greater tuberosity. No fracture. Degenerative changes in the AC joint. No other significant findings. DIVISION OF RADIOLOGY Provider, [facility] - 06/23/2021 * * *Final Report* * * DATE OF EXAM: Jun 23 2021 4:27PM WOX 5253 - XR SHLDR >/=3V AP/RAYSA AP/OTHR RT / PROCEDURE REASON: Acute pain of right shoulder * * * * Physician Interpretation * * * * HISTORY: Chronic right shoulder pain increasing over time without injury. Acute pain of right shoulder . TECHNIQUE: XR SHLDR >/=3V AP/RAYSA AP/OTHR RT Laterality: RIGHT Number of different views (projections): 3 COMPARISON: None RESULT: Normal alignment. No fracture. Benign irregularity of the contour of the greater tuberosity. No fracture. Degenerative changes in the AC joint. No other significant findings. IMPRESSION IMPRESSION: No acute bony process, acromioclavicular degenerative changes. Neon Sign Mechanic[facility] Transcribe Date/Time: Jun 23 2021 6:49P Dictated by : BROCK CARR MD This examination was interpreted and the report reviewed and electronically signed by: BROCK CARR MD on Jun 23 2021 6:52PM EST [facility] Radiology Study observation (narrative) [facility] XR Shoulder - right 3 ViewsO rdered By: Ccf Provider on 06-23-2021 [facility] XR Tibia and Fibula - right AP and Lateralon 01-05-2021 * * *Final Report* * * DATE OF EXAM: Jan 05 2021 11:00AM WOX 5266 - XR TIBIA FIBULA 2V AP/LAT RT / PROCEDURE REASON: Wound of right lower extremity, subsequent encounter * * * * Physician Interpretation * * * * Indication: Right lower leg wound Comparison: None AP and lateral x-rays of the right tibia and fibula are obtained. There is generalized demineralization of the bones. There is no acute fracture or dislocation. Joint spaces are maintained. No destructive osseous lesion. No radiodense foreign body is visualized. Impression: 1. No acute fracture or destructive osseous lesion Neon Sign Mechanic: [facility] Transcribe Date/Time: Jan 05 2021 1:58P Dictated by : MIREYA LAU MD This examination was interpreted and the report reviewed and electronically signed by: MIREYA LAU MD on Jan 05 2021 1:59PM [facility] DIVISION OF RADIOLOGY Provider, [facility] - 01/05/2021 * * *Final Report* * * DATE OF EXAM: Jan 05 2021 11:00AM WOX 5266 - XR TIBIA FIBULA 2V AP/LAT RT / PROCEDURE REASON: Wound of right lower extremity, subsequent encounter * * * * Physician Interpretation * * * * Indication: Right lower leg wound Comparison: None AP and lateral x-rays of the right tibia and fibula are obtained. There is generalized demineralization of the bones. There is no acute fracture or dislocation. Joint spaces are maintained. No destructive osseous lesion. No radiodense foreign body is visualized. Impression: 1. No acute fracture or destructive osseous lesion Neon Sign [facility] Transcribe Date/Time: Jan 05 2021 1:58P Dictated by : MIREYA LAU MD This examination was interpreted and the report reviewed and electronically signed by: MIREYA LAU MD on Jan 05 2021 1:59PM EST [facility] Radiology Study observation (narrative) [facility] XR Tibia and Fibula - right AP and LateralOrdered By: Ccf Provider on 01-05-2021 [facility] XR Pelvis and Hip - left AP and Lateral frogon 04-12-2020 IMPRESSION: No acute process. Neon Sign Mechanic: [facility] Transcribe Date/Time: Apr 12 2020 1:44P Dictated by : KARIN MCKENNA MD This examination was interpreted and the report reviewed and electronically signed by: KARIN MCKENNA MD on Apr 12 2020 1:47PM [facility] DIVISION OF RADIOLOGY * * *Final Report* * * DATE OF EXAM: Apr 12 2020 12:23PM [id number] - XR HIP 3V PELV+ AP/LAT LT / PROCEDURE REASON: multiple diagnoses * * * * Physician Interpretation * * * * EXAMINATION: XR HIP 3V PELV+ AP/LAT LT HISTORY: Lateral left hip pain x several months without injury. Hx of prostate cancer(HCC) . TECHNIQUE: XR HIP 3V PELV+ AP/LAT LT Laterality: LEFT Number of different views (projections): 3 M: XB_1 COMPARISON: There are no prior relevant examinations available for comparison. RESULT: Supine radiograph of the pelvis as well as AP and frogleg views of the left hip demonstrate the bony pelvic ring intact. The hips are bilaterally symmetric without fracture or dislocation. Mild eburnation of the acetabular rims noted. No acute bony process is noted. The soft tissues are unremarkable. DIVISION OF RADIOLOGY Provider, Marcelo [facility] - 04/12/2020 * * *Final Report* * * DATE OF EXAM: Apr 12 2020 12:23PM WOX [id number] - XR HIP 3V PELV+ AP/LAT LT / PROCEDURE REASON: multiple diagnoses * * * * Physician Interpretation * * * * EXAMINATION: XR HIP 3V PELV+ AP/LAT LT HISTORY: Lateral left hip pain x several months without injury. Hx of prostate cancer(HCC) . TECHNIQUE: XR HIP 3V PELV+ AP/LAT LT Laterality: LEFT Number of different views (projections): 3 M: XB_1 COMPARISON: There are no prior relevant examinations available for comparison. RESULT: Supine radiograph of the pelvis as well as AP and frogleg views of the left hip demonstrate the bony pelvic ring intact. The hips are bilaterally symmetric without fracture or dislocation. Mild eburnation of the acetabular rims noted. No acute bony process is noted. The soft tissues are unremarkable. IMPRESSION IMPRESSION: No acute process. Neon Sign Mechanic: BOBO Transcribe Date/Time: Apr 12 2020 1:44P Dictated by : KARIN MCKENNA MD This examination was interpreted and the report reviewed and electronically signed by: KARIN MCKENNA MD on Apr 12 2020 1:47PM EST [facility] Radiology Study observation (narrative) [facility] XR Pelvis and Hip - left AP and Lateral frogOrdered By: Ccf Provider on 04-12-2020 [facility] Vital Signs Date Time Vital Sign Value Performing Clinician Facility 10-01-2024 14:03-0400 Body temperature 98.1 [degF] Dr. Eduardo Infante MD Work Phone: [facility] 10-01-2024 14:03-0400 Diastolic blood pressure 78 mm[Hg] Dr. Eduardo Infante MD Work Phone: [facility] 10-01-2024 14:03-0400 Heart rate 93 /min Dr. Eduardo Infante MD Work Phone: [facility] 10-01-2024 14:03-0400 Respiratory rate 14 /min Dr. Eduardo Infante MD Work Phone: [facility] 10-01-2024 14:03-0400 SaO2% (BldA) [Mass fraction] 97 % Dr. Eduardo Ifnante MD Work Phone: [facility] 10-01-2024 14:03-0400 Systolic blood pressure 163 mm[Hg] Dr. Eduardo Infante MD Work Phone: [facility] 10-01-2024 10:34-0400 Body height 177.[address] Eduardo Infanet MD Work Phone: [facility] 10-01-2024 10:34-0400 Body mass index (BMI) [Ratio] 18.6 kg/m2 Dr. Eduardo Infante MD Work Phone: [facility] 10-01-2024 10:34-0400 Body weight [address] Eduardo Infante MD Work Phone: [facility] 09-28-2024 14:05-0400 Body mass index (BMI) [Ratio] 19.48 kg/m2 Eduardo Infante MD Work Phone: [facility] 09-28-2024 14:05-0400 Body weight 58.97 kg Eduardo Infante MD Work Phone: [facility] 09-28-2024 14:05-0400 Diastolic blood pressure 62 mm[Hg] Eduardo Infante MD Work Phone: [facility] 09-28-2024 14:05-0400 Heart rate 64 /min Eduardo Infante MD Work Phone: [facility] 09-28-2024 14:05-0400 SaO2% (BldA) [Mass fraction] 96 % Eduardo Infante MD Work Phone: [facility] 09-28-2024 14:05-0400 Systolic blood pressure 122 mm[Hg] Eduardo Infante MD Work Phone: [facility] 08-31-2024 10:23-0400 Body mass index (BMI) [Ratio] 19.48 kg/m2 Rosemary Novak APRN.INSURANCE RISK SURVEYOR Work Phone: [facility] 08-31-2024 10:23-0400 Body temperature 97.39 [degF] Rosemary Novak APRN.INSURANCE RISK SURVEYOR Work Phone: [facility] 08-31-2024 10:23-0400 Body weight 58.97 kg Rosemary Suppan [employer] FORMER.INSURANCE RISK SURVEYOR Work Phone: [facility] Comment on above: per patient 08-31-2024 10:23-0400 Diastolic blood pressure 68 mm[Hg] Rosemary Suppan [employer] FORMER.INSURANCE RISK SURVEYOR Work Phone: [facility] 08-31-2024 10:23-0400 Heart rate 62 /min Rosemary Suppan [employer] FORMER.INSURANCE RISK SURVEYOR Work Phone: [facility] 08-31-2024 10:23-0400 SaO2% (BldA) [Mass fraction] 96 % Rosemary Suppan [employer] FORMER.INSURANCE RISK SURVEYOR Work Phone: [facility] 08-31-2024 10:23-0400 Systolic blood pressure 122 mm[Hg] Rosemary Suppan [employer] FORMER.INSURANCE RISK SURVEYOR Work Phone: [facility] 08-25-2024 21:49-0400 Body temperature 98.4 [degF] Dr. Eduardo Infante MD Work Phone: 5(047)612-699556 [place] [address] 08-25-2024 21:49-0400 Diastolic blood pressure 74 mm[Hg] Dr. Eduardo Infante MD Work Phone: 3(594)785-707356 [place] [address] 08-25-2024 21:49-0400 Heart rate 62 /min Dr. Eduardo Infante MD Work Phone: 1(241)883-927656 [place] [address] 08-25-2024 21:49-0400 Respiratory rate 18 /min Dr. Eduardo Infante MD Work Phone: 4(024)906-623056 [place] [address] 08-25-2024 21:49-0400 SaO2% (BldA) [Mass fraction] 95 % Dr. Eduardo Infante MD Work Phone: 6(052)577-684856 [place] [address] 08-25-2024 21:49-0400 Systolic blood pressure 152 mm[Hg] Dr. Eduardo Infante MD Work Phone: 3(045)454-694556 [place] [address] 08-25-2024 15:24-0400 Body mass index (BMI) [Ratio] 19 kg/m2 Dr. Eduardo Infante MD Work Phone: 9(473)883-386956 [place] [address] 08-25-2024 15:24-0400 Body weight 60.[address] Eduardo Infante MD Work Phone: 8(484)224-042014 [place] [address] 08-25-2024 15:19-0400 Body height 177.[address] Eduardo Infante MD Work Phone: 1(063)260-788614 [place] [address] 08-25-2024 12:56-0400 Body temperature 97.9 [degF] Ned Macias MD Work Phone: 4(547)018-475982 [place] [address] 08-25-2024 12:56-0400 Diastolic blood pressure 70 mm[Hg] Ned Macias MD Work Phone: 2(330)190-461865 [place] [address] 08-25-2024 12:56-0400 Heart rate 65 /min Ned Macias MD Work Phone: 3(323)257-688665 [place] [address] 08-25-2024 12:56-0400 Respiratory rate 16 /min Ned Macias MD Work Phone: 6(595)376-254565 [place] [address] 08-25-2024 12:56-0400 SaO2% (BldA) [Mass fraction] 98 % Ned Macias MD Work Phone: 4(091)017-048182 [place] [address] 08-25-2024 12:56-0400 Systolic blood pressure 118 mm[Hg] Ned Macias MD Work Phone: 4(149)507-708365 [place] [address] 08-23-2024 15:47-0400 Body height 177.[address] Eduardo Infante MD Work Phone: 4(709)737-807056 [place] [address] 08-23-2024 15:47-0400 Body mass index (BMI) [Ratio] 19.5 kg/m2 Dr. Eduardo Infante MD Work Phone: 4(005)175-728914 [place] [address] 08-23-2024 15:47-0400 Body temperature 97.7 [degF] Dr. Eduardo Infante MD Work Phone: 2(621)301-944014 [place] [address] 08-23-2024 15:47-0400 Body weight 61.[address] Eduardo Infante MD Work Phone: 4(166)291-996414 [place] [address] 08-23-2024 15:47-0400 Diastolic blood pressure 62 mm[Hg] Dr. Eduardo Infante MD Work Phone: [facility] 08-23-2024 15:47-0400 Heart rate 65 /min Dr. Eduardo Infante MD Work Phone: [facility] 08-23-2024 15:47-0400 Respiratory rate 18 /min Dr. Eduardo Infante MD Work Phone: [facility] 08-23-2024 15:47-0400 SaO2% (BldA) [Mass fraction] 99 % Dr. Eduardo Infante MD Work Phone: 7(406)221-965556 [place] [address] 08-23-2024 15:47-0400 Systolic blood pressure 159 mm[Hg] Dr. Eduardo Infante MD Work Phone: [facility] 08-03-2024 10:13-0400 Body mass index (BMI) [Ratio] 20.58 kg/m2 Estuardo Jesus MD Work Phone: [facility] 08-03-2024 10:13-0400 Body temperature 96.91 [degF] Estuardo Jesus MD Work Phone: [facility] 08-03-2024 10:13-0400 Body weight 62.3 kg Estuardo Jesus MD Work Phone: [facility] 08-03-2024 10:13-0400 Diastolic blood pressure 70 mm[Hg] Estuardo Jesus MD Work Phone: [facility] 08-03-2024 10:13-0400 Heart rate 60 /min Estuardo Jesus MD Work Phone: [facility] 08-03-2024 10:13-0400 Respiratory rate 16 /min Estuardo Jesus MD Work Phone: [facility] 08-03-2024 10:13-0400 SaO2% (BldA) [Mass fraction] 97 % Estuardo Jesus MD Work Phone: [facility] 08-03-2024 10:13-0400 Systolic blood pressure 128 mm[Hg] Estuardo Jesus MD Work Phone: [facility] 06-17-2024 14:35-0400 Body mass index (BMI) [Ratio] 20.53 kg/m2 Eduardo Infante MD Work Phone: [facility] 06-17-2024 14:35-0400 Body weight 62.14 kg Eduardo Infante MD Work Phone: [facility] 06-17-2024 14:35-0400 Diastolic blood pressure 62 mm[Hg] Eduardo Infante MD Work Phone: [facility] 06-17-2024 14:35-0400 Heart rate 71 /min Eduardo Infante MD Work Phone: [facility] 06-17-2024 14:35-0400 SaO2% (BldA) [Mass fraction] 95 % Eduardo Infante MD Work Phone: [facility] 06-17-2024 14:35-0400 Systolic blood pressure 112 mm[Hg] Eduardo Infante MD Work Phone: [facility] 11-19-2023 10:45-0400 Body mass index (BMI) [Ratio] 19.16 kg/m2 Krislyn Aberegg PA Work Phone: [facility] 11-19-2023 10:45-0400 Body temperature 99.19 [degF] Krislyn Aberegg PA Work Phone: [facility] 11-19-2023 10:45-0400 Body weight 58 kg Krislyn Aberegg PA Work Phone: [facility] 11-19-2023 10:45-0400 Diastolic blood pressure 70 mm[Hg] Krislyn Aberegg PA Work Phone: [facility] 11-19-2023 10:45-0400 Heart rate 65 /min Krislyn Aberegg PA Work Phone: [facility] 11-19-2023 10:45-0400 Respiratory rate 18 /min Krislyn Aberegg PA Work Phone: [facility] 11-19-2023 10:45-0400 SaO2% (BldA) [Mass fraction] 98 % Yanlyarin Aberegg PA Work Phone: [facility] 11-19-2023 10:45-0400 Systolic blood pressure 148 mm[Hg] Brownamyarin Aberegg PA Work Phone: [facility] 11-05-2023 13:47-0400 Body mass index (BMI) [Ratio] 19.33 kg/m2 Eduardo Infante MD Work Phone: [facility] 11-05-2023 13:47-0400 Body weight 58.51 kg Eduardo Infante MD Work Phone: [facility] 11-05-2023 13:47-0400 Diastolic blood pressure 64 mm[Hg] Eduardo Infante MD Work Phone: [facility] 11-05-2023 13:47-0400 Heart rate 54 /min Eduardo Infante MD Work Phone: [facility] 11-05-2023 13:47-0400 Respiratory rate 14 /min Eduardo Infante MD Work Phone: [facility] 11-05-2023 13:47-0400 SaO2% (BldA) [Mass fraction] 96 % Eduardo Infante MD Work Phone: [facility] 11-05-2023 13:47-0400 Systolic blood pressure 120 mm[Hg] Eduardo Infante MD Work Phone: [facility] 07-05-2023 10:23-0400 Body weight 59.88 kg Eduardo Infante MD Work Phone: [facility] 07-05-2023 10:23-0400 Diastolic blood pressure 70 mm[Hg] Eduardo Infante MD Work Phone: [facility] 07-05-2023 10:23-0400 Heart rate 60 /min Eduardo Infante MD Work Phone: [facility] 07-05-2023 10:23-0400 Systolic blood pressure 120 mm[Hg] Eduardo Infante MD Work Phone: [facility] 01-28-2023 15:37-0400 Body weight 57.[address] Eduardo Infante Work Phone: 2(465)294-200056 [place] [address] 01-17-2023 11:23-0400 Body temperature 97.4 [degF] Dr. Eduardo Infante Work Phone: 3(567)922-240914 [place] [address] 01-17-2023 11:23-0400 Diastolic blood pressure 76 mm[Hg] Dr. Eduardo Infante Work Phone: 0(299)215-036914 [place] [address] 01-17-2023 11:23-0400 Heart rate 104 /min Dr. Eduardo Infante Work Phone: 1(294)139-919814 [place] [address] 01-17-2023 11:23-0400 Respiratory rate 16 /min Dr. Eduardo Infante Work Phone: 7(631)664-606714 [place] [address] 01-17-2023 11:23-0400 SaO2% (BldA) [Mass fraction] 95 % Dr. Eduardo Infante Work Phone: 5(442)834-957714 [place] [address] 01-17-2023 11:23-0400 Systolic blood pressure 143 mm[Hg] Dr. Eduardo Infante Work Phone: 1(568)252-781214 [place] [address] 01-16-2023 14:20-0400 Body height 177.[address] Eduardo Infante Work Phone: 6(996)826-765514 [place] [address] 01-16-2023 14:20-0400 Body weight 54.[address] Eduardo Infante Work Phone: 3(127)296-642756 [place] [address] 01-12-2023 23:34-0400 Body mass index (BMI) [Ratio] 17.2 kg/m2 Dr. Eduardo Infante Work Phone: 4(809)183-050956 [place] [address] 01-12-2023 23:16-0400 Inhaled oxygen flow rate 2 L/min Dr. Eduardo Infante Work Phone: 5(365)724-835614 [place] [address] 01-12-2023 20:08-0400 Body height 177.[address] Eduardo Infante Work Phone: 8(603)532-793614 [place] [address] 01-12-2023 20:08-0400 Body mass index (BMI) [Ratio] 18.1 kg/m2 Dr. Eduardo Infante Work Phone: [facility] 01-12-2023 20:08-0400 Body temperature 97.6 [degF] Dr. Eduardo Infante Work Phone: [facility] 01-12-2023 20:08-0400 Body weight 57.[address] Eduardo Infante Work Phone: [facility] 01-12-2023 20:08-0400 Diastolic blood pressure 74 mm[Hg] Dr. Eduardo Infante Work Phone: [facility] 01-12-2023 20:08-0400 Heart rate 63 /min Dr. Eduardo Infante Work Phone: [facility] 01-12-2023 20:08-0400 Respiratory rate 16 /min Dr. Eduardo Infante Work Phone: [facility] 01-12-2023 20:08-0400 SaO2% (BldA) [Mass fraction] 97 % Dr. Eduardo Infante Work Phone: [facility] 01-12-2023 20:08-0400 Systolic blood pressure 150 mm[Hg] Dr. Eduardo Infante Work Phone: [facility] 01-12-2022 14:23-0400 Body height 174 cm Eduardo Infante MD Work Phone: [facility] 01-12-2022 14:23-0400 Body weight 59.88 kg Eduardo Infante MD Work Phone: [facility] 01-12-2022 14:23-0400 Diastolic blood pressure 58 mm[Hg] Eduardo Infante MD Work Phone: [facility] 01-12-2022 14:23-0400 Heart rate 61 /min Eduardo Infante MD Work Phone: [facility] 01-12-2022 14:23-0400 SaO2% (BldA) [Mass fraction] 98 % Eduardo Infante MD Work Phone: [facility] 01-12-2022 14:23-0400 Systolic blood pressure 116 mm[Hg] Eduardo Infante MD Work Phone: [facility] 12-05-2021 10:34-0400 Body temperature 97.81 [degF] Antoinette Bert [employer] FORMER.INSURANCE RISK SURVEYOR Work Phone: [facility] 12-05-2021 10:34-0400 Body weight 60.51 kg Antoinette Bert [employer] FORMER.INSURANCE RISK SURVEYOR Work Phone: [facility] 12-05-2021 10:34-0400 Diastolic blood pressure 74 mm[Hg] Antoinette Bert [employer] FORMER.INSURANCE RISK SURVEYOR Work Phone: [facility] 12-05-2021 10:34-0400 Heart rate 78 /min Antoinette Bert [employer] FORMER.INSURANCE RISK SURVEYOR Work Phone: [facility] 12-05-2021 10:34-0400 Respiratory rate 16 /min Antoinette Bert [employer]OM[employer]ING [employer] FORMER.INSURANCE RISK SURVEYOR Work Phone: [facility] 12-05-2021 10:34-0400 SaO2% (BldA) [Mass fraction] 97 % Antoinette Bert [employer] FORMER.INSURANCE RISK SURVEYOR Work Phone: [facility] 12-05-2021 10:34-0400 Systolic blood pressure 126 mm[Hg] Antoinette Bert AUTOMATIC [employer]ING [employer] FORMER.INSURANCE RISK SURVEYOR Work Phone: [facility] 06-23-2021 15:36-0400 Body weight 60.78 kg Eduardo Infante MD Work Phone: [facility] 06-23-2021 15:36-0400 Diastolic blood pressure 66 mm[Hg] Eduardo Infante MD Work Phone: [facility] 06-23-2021 15:36-0400 Heart rate 68 /min Eduardo Infante MD Work Phone: [facility] 06-23-2021 15:36-0400 Systolic blood pressure 138 mm[Hg] Eduardo Infante MD Work Phone: [facility] Encounters Encounter Date Encounter Type Care Provider Facility Start: 10-01-2024 Evaluation and management of inpatient Dr. Natalya Xiao DO -Medical Surgical 3 Work Phone: Start: 10-01-2024 End: 10-01-2024 Telephone encounter Eduardo Infante MD Work Phone: [facility] [place] Comment on above: Patient Update Start: 09-30-2024 End: 09-30-2024 Subsequent hospital visit by physician [facility] (I-Stat/1.5t) Work Phone: Radiology Comment on above: Wound of right lower extremity, subsequent encounter [S81.801D] Start: 09-28-2024 End: 09-28-2024 Patient encounter procedure Eduardo Infante MD Work Phone: [facility] [place] Comment on above: Wound of right lower extremity, subsequent encounter (Primary Dx); Cellulitis of skin; Abnormal x-ray Start: 09-28-2024 End: 09-28-2024 ambulatory EDUARDO INFANTE Facility:[facility] Start: 08-31-2024 End: 08-31-2024 Telephone encounter Rosemary Novak [employer] FORMER.INSURANCE RISK SURVEYOR Work Phone: [facility] [place] Start: 08-31-2024 End: 08-31-2024 Office outpatient visit 15 minutes Rosemary Novak [employer] FORMER.INSURANCE RISK SURVEYOR Work Phone: [facility] [place] Comment on above: Open wound of right lower leg, subsequent encounter (Primary Dx) Start: 08-31-2024 End: 08-31-2024 ambulatory EDUARDO INFANTE Facility:[facility] Start: 08-25-2024 End: 08-25-2024 Emergency department patient visit Dr. Eduardo Infante MD Work Phone: -Emergency Department Work Phone: Start: 08-25-2024 End: 08-25-2024 ambulatory NED MACIAS Facility:[facility] Start: 08-25-2024 End: 08-27-2024 Follow-up encounter Ned Macias MD Work Phone: [facility] [place] Comment on above: Results Start: 08-25-2024 End: 08-25-2024 Subsequent hospital visit by physician Xr [facility] Work Phone: Radiology Comment on above: Wound of right lower extremity, subsequent encounter [S81.801D] Start: 08-25-2024 End: 08-25-2024 Patient encounter procedure Ned Macias MD Work Phone: [facility] [place] Comment on above: Wound of right lower extremity, subsequent encounter (Primary Dx); Pain in right lower leg Start: 08-25-2024 End: 08-25-2024 ambulatory NED MACIAS Facility:[facility] Start: 08-24-2024 End: 08-24-[address] Eduardo Infante MD Work Phone: [facility] Work Phone: Start: 08-24-2024 End: 08-24-[address] Yogesh Bloom DO -Vascular Lab Work Phone: Start: 08-24-2024 End: 08-24-2024 ambulatory Yogesh Bloom Facility:[facility] Start: 08-23-2024 End: 08-23-2024 Emergency department patient visit Dr. Eduardo Infante MD Work Phone: -Emergency Department Work Phone: Start: 08-03-2024 End: 08-03-2024 Office outpatient visit 15 minutes Estuardo Jesus MD Work Phone: [facility] Comment on above: Abrasion, right lowe r leg, initial encounter (Primary Dx) Start: 08-03-2024 End: 08-03-2024 ambulatory EDUARDO Palumbo NARESH Facility:[facility] Start: 07-23-2024 End: 07-23-2024 ambulatory [facility] Facility:[facility] Start: 06-25-2024 End: 06-25-2024 ambulatory Dalia Akbar MA [email or web address] [place] Start: 06-25-2024 End: 06-25-2024 Patient encounter procedure Dalia Akbar MA [facility] [place] Comment on above: Population Health Na vigation Outreach [facility] Start: 06-18-2024 End: 08-18-2024 Follow-up encounter Eduardo Infante MD Work Phone: Pulmonology [facility] Start: 06-17-2024 End: 06-17-2024 [facility] Start: 06-17-2024 End: 06-17-2024 Patient encounter procedure Eduardo Infante MD Work Phone: [facility] [place] Comment on above: Oropharyngeal dyspha amirah (Primary Dx); Prostate cancer (HCC); Nonrheumatic aortic valve insufficiency; Screening for prostate cancer; Gastroesophageal reflux disease without esophagitis; Porokeratosis; Encounter for screening examination for other mental health and behavioral disorders; Screening for depression Start: 12-26-2023 End: 12-26-2023 ambulatory Joan Jasso [facility] Therapy Comment on above: Other dysphagia (Jeannie rubens Dx); Oropharyngeal dysphagia Start: 12-19-2023 End: 12-19-2023 Telephone encounter Eduardo Infante MD Work Phone: [facility] [place] Comment on above: Results (Outside res ults) Start: 12-19-2023 End: 12-19-2023 ambulatory [facility] Facility:[facility] Start: 11-19-2023 End: 11-19-2023 ambulatory [facility] Facility:[facility] Start: 11-19-2023 End: 11-19-2023 Patient encounter procedure Dutch KUMAR Work Phone: [facility] Comment on above: URI, acute (Primary Dx) Start: 11-05-2023 End: 11-05-2023 Patient encounter procedure Eduardo Infante MD Work Phone: [facility] [place] Comment on above: Swallowing disorder (Primary Dx) Start: 11-05-2023 End: 11-05-2023 ambulatory EDUARDO INFANTE Facility:[facility] Start: 07-05-2023 End: 07-05-2023 Patient encounter procedure Eduardo Infante MD Work Phone: [facility] Comment on above: Edema, unspecified t ype (Primary Dx) Start: 03-15-2023 Telephone encounter Eduardo Infante MD Work Phone: [facility] Comment on above: Results Start: 03-12-2023 Non-patient / Non-visit Dr. Eduardo Infante Work Phone: [facility] Start: 03-12-2023 End: 03-12-[address] Eduardo Infante Work Phone: [facility] Work Phone: Start: 03-12-2023 End: 03-12-[address] [facility] Work [facility]: Start: 02-04-2023 End: 02-04-[address] Eduardo Infante Work Phone: [facility] Work Phone: Start: 01-28-2023 End: 01-28-[address] Eduardo Infante Work Phone: [facility] Work Phone: Start: 01-17-2023 Non-patient / Non-visit Dr. Eduardo Infante Work Phone: [facility] Start: 01-16-2023 Non-patient / Non-visit Dr. Eduardo Infante Work Phone: [facility] Start: 01-15-2023 Non-patient / Non-visit Dr. Eduardo Infante Work Phone: [facility] Start: 01-14-2023 Non-patient / Non-visit Dr. Eduardo Infante Work Phone: [facility] Start: 01-13-2023 Non-patient / Non-visit Dr. Eduardo Infante Work Phone: [facility] Start: 01-12-2023 End: 01-17-2023 Evaluation and management of inpatient Dr. Eduardo Infante Work Phone: [facility] Work Phone: Start: 01-12-2023 Admission to [facility] Dr[facility] Eduardo Infante Work Phone: [facility] Start: 01-12-[address] Eduardo Coulter Work Phone: [facility] Work Phone: Start: 01-12-2023 Non-patient / Non-visit Dr. Eduardo Infante Work Phone: [facility] Start: 07-24-2022 Telephone encounter Eduardo Infante MD Work Phone: [facility] Comment on above: Rx Refills Start: 07-16-2022 Refill Hemant Laura on PA-C Work Phone: [facility] Comment on above: Refill Request Start: 05-17-2022 Refill Eduardo Infante MD Work Phone: [facility] Comment on above: Refill Request Start: 03-22-2022 End: 03-22-2022 ambulatory EDUARDO INFANTE Facility:[facility] Start: 03-22-2022 End: 03-22-2022 ambulatory Vannesa Hunt CCC-BULK SEALER OPERATOR Work Phone: [facility] Comment on above: Dysphagia, unspecifi ed type Start: 03-19-2022 Telephone encounter Eduardo Infante MD Work Phone: [facility] Comment on above: Results Start: 02-26-2022 End: 02-26-2022 ambulatory [facility] Work Phone: Start: 02-26-2022 End: 02-26-2022 Patient encounter procedure [facility], [facility] Start: 01-15-2022 Telephone encounter Eduardo Infante MD Work Phone: [facility] Comment on above: Orders Start: 01-12-2022 End: 01-12-2022 Subsequent hospital visit by physician Xr [facility] Work Phone: Radiology Comment on above: Chronic cough [R05.3 ] Start: 01-12-2022 End: 01-12-2022 Patient encounter procedure Eduardo Infante MD Work Phone: [facility] Comment on above: Chronic cough (Prima ry Dx); Dysphagia, unspecified type Start: 12-08-2021 ambulatory Eduardo Infante MD Work Phone: [facility] Comment on above: upcoming lab test re quests Start: 12-05-2021 End: 12-05-2021 Subsequent hospital visit by physician Xr [facility] Work Phone: Radiology Comment on above: Rib pain on right si de [R07.81] Start: 12-05-2021 End: 12-05-2021 Patient encounter procedure Antoinette Noel APRN.INSURANCE RISK SURVEYOR Work Phone: [facility] Comment on above: Rib pain on right si de (Primary Dx) Start: 06-28-2021 End: 06-28-2021 Patient encounter procedure Heber Flores MD Work Phone: Otolaryngology Comment on above: Ear lesion Start: 06-23-2021 End: 06-23-2021 Subsequent hospital visit by physician Xr [facility] Work Phone: Radiology Comment on above: Acute pain of right shoulder [M25.511] Start: 06-23-2021 End: 06-23-2021 Patient encounter procedure Eduardo Infante MD Work Phone: [facility] Comment on above: Ear lesion (Primary Dx); Acute pain of right shoulder Start: 01-05-2021 End: 01-05-2021 Subsequent hospital visit by physician Laurie [facility] Work Phone: Radiology Comment on above: Wound of right lower extremity, subsequent encounter [S81.801D] Start: 04-12-2020 End: 04-12-2020 Subsequent hospital visit by physician Laurie [facility] Work Phone: Radiology Comment on above: Left hip pain [M25.5 52] Procedures Date Procedure Procedure Detail Performing Clinician Start: 10-01-[address] Eduardo Infante MD Work Phone: Start: 09-30-2024 Mri lower extrem oth /thn jt w/o contr matrl Eduardo Infante MD Work Phone: Start: 08-25-2024 MRI of lower extremity Dr. Eduardo Infante MD Work Phone: Start: 08-25-[address] Eduardo Infante MD Work Phone: Start: 08-25-2024 Radiologic examinati on tibia & fibula 2 views Ned Macias MD Work Phone: Start: 08-25-[address] Omar Infante MD Work Phone: Start: 06-17-2024 Adult depression scr eening assessment Eduardo Infante MD Work Phone: Start: 07-05-2023 Adult depression scr eening assessment Eduardo Infante MD Work Phone: Start: 01-16-2023 Diagnostic radiograp hy of abdomen Dr. Eduardo Infante Work Phone: Start: 01-12-[address] Eduardo Infante Work Phone: Start: 01-12-2023 Plain X-ray abdomen Dr. Eduardo Infante Work Phone: Start: 01-12-2023 Computed tomography of abdomen and pelvis with intravenous contrast Dr. Eduardo Infante Work Phone: Start: 02-26-2022 [employer] Start: 01-12-2022 Radiologic exam ches t 2 views Eduardo Infante MD Work Phone: Start: 12-05-2021 Radex ribs uni w/posteroant ch minimum 3 views Antoinette Noel AUTOMATIC BUFFING WHEEL FORMER.INSURANCE RISK SURVEYOR Work Phone: Start: 06-23-2021 Radex shoulder compl ete minimum 2 views Eduardo Infante MD Work Phone: Start: 01-05-2021 Radiologic examinati on tibia & fibula 2 views Eduardo Infante MD Work Phone: Start: 04-12-2020 Radex hip unilateral with pelvis 2-3 views M Mj Silva PA-C Work Phone: Plan of Treatment Date Care Activity Detail Author Start: 01-05-2031 Urine microalbumin profile [facility] Start: 09-29-2027 Diabetes Screening Diabetes Screening [facility] Start: 06-18-2027 Diabetes Screening Diabetes Screening [facility] Start: 04-05-2026 Diabetes Screening Diabetes Screening [facility] Start: 03-13-2026 Diabetes Screening Diabetes Screening [facility] Start: 06-17-2025 Anxiety Screening Anxiety Screening [facility] Start: 06-17-2025 Depression Screening Depression Screening [facility] Start: 06-17-2025 RSV Vaccine (1 - 1-dose 75+ series) RSV Vaccine (1 - 1-dose 75+ series) [facility] Comment on above: Postponed from 2012 (Declined at t his time) Start: 12-11-2024 DIABETES SCREEN DIABETES SCREEN [facility] Start: 11-30-2024 Influenza vaccination [facility] Start: 11-04-2024 Covid-19 Vaccine ( season) Covid-19 Vaccine ( season) [facility] Comment on above: Postponed from 06/24/2023 (Declined at t his time) Start: 10-05-2024 End: 10-05-2024 Patient encounter procedure [facility] [place] Comment on above: 1 week follow up cellulitis/wound right lower leg check to see if stil l in [facility] - 1 week follow up cellulitis/wound right lower leg Start: 10-01-2024 Bacterial nucleic acid assay [facility] Start: 10-01-2024 [facility] Start: 10-01-2024 Verification routine [facility] Start: 10-01-2024 Admission procedure [facility] Start: 10-01-2024 Hospital admission, emergency, from emergency room, medical nature [facility] Start: 10-01-2024 [facility] Start: 09-30-2024 End: 09-30-2024 Patient encounter procedure 09/30/2024 3:30 PM EDT Appointment Radiology [address] [place] [address] Wound of right lower extremity, subsequent encounter [S81.801D]; Cellulitis of skin [L03.90]; Abnormal x-ray [R93.89] Radiology Comment on above: Wound of right lower extremity, subseque nt encounter [S81.801D]; Cellulitis of skin [L03.90]; Abnormal x-ray [R93.89] Start: 09-28-2024 End: 12-28-2024 Basic metabolic 2000 panel - Serum or Plasma [facility] Comment on above: Expected: 09/28/2024, Expires: Start: 09-28-2024 Influenza [facility] Comment on above: Postponed from 12/01/2023 (Declined at t his time) Start: 09-28-2024 End: 09-28-2024 Patient encounter procedure 09/28/2024 2:00 PM EDT Office Visit [facility] [address] [place] [address] Eduardo Infante MD [address] [place] [address] 4 week follow up [facility] Comment on above: 4 week follow up Start: 09-03-2024 Covid-19 Vaccine ( season) Covid-19 Vaccine ( season) [facility] Start: 08-31-2024 End: 08-31-2024 Patient encounter procedure 08/31/2024 10:40 AM EDT Office Visit [facility] [address] [place] [address] Rosemary Novak APRN.INSURANCE RISK SURVEYOR [address] [place] [address] [facility] ER follow up right leg infection, pain [facility] [place] Comment on above: [facility] ER follow up right leg infection, pa in Start: 08-25-2024 [facility] Start: 08-25-2024 End: 08-25-2024 [facility] Start: 08-25-2024 Bacteria identified in Blood by Culture Blood Culture [facility] Start: 08-25-2024 End: 11-24-2024 Erythrocyte sedimentation rate [facility] Work Phone: Comment on above: Expected: 08/25/2024, Expires: Start: 08-23-2024 [facility] Start: 08-23-2024 US.doppler Lower extremity vein [facility] Start: 07-07-2024 End: 07-07-2024 Patient encounter procedure Podiatry Comment on above: Porokeratosis [Q82.8] Start: 07-04-2024 Anxiety Screening Anxiety Screening [facility] Start: 07-04-2024 Depression Screening Depression Screening [facility] Start: 06-17-2024 End: 09-16-2024 CBC W Auto Differential panel - Blood [facility] Work Phone: Comment on above: Expected: 06/17/2024, Expires: Start: 06-17-2024 End: 09-16-2024 Comprehensive metabolic 2000 panel - Serum or Plasma [facility] Comment on above: Expected: 06/17/2024, Expires: Start: 06-17-2024 End: 09-16-2024 PSA/PROSTATE SPECIFIC ANTIGEN SCREENING [facility] Comment on above: Expected: 06/17/2024, Expires: 5 Start: 04-05-2024 RSV Vaccine (1 - 1-dose 60+ series) RSV Vaccine (1 - 1-dose 60+ series) [facility] Comment on above: Postponed from 1997 (Declined at t his time) Start: 04-05-2024 RSV Vaccine (1 - 1-dose 75+ series) RSV Vaccine (1 - 1-dose 75+ series) [facility] Comment on above: Postponed from 2012 (Declined at t his time) Start: 12-26-2023 End: 12-26-2023 ambulatory 12/26/2023 1:00 PM EDT OT/PT/Speech Visit [facility] [address] [place] [address] Joan Jasso, KRISTIE-BULK SEALER OPERATOR Other dysphagia [R13.19] [facility] Comment on above: Other dysphagia [R13.19] Start: 12-07-2023 DIABETES SCREEN DIABETES SCREEN [facility] Start: 12-01-2023 Covid-19 Vaccine () Covid-19 Vaccine () [facility] Start: 12-01-2023 Covid-19 Vaccine () Covid-19 Vaccine () [facility] Start: 12-01-2023 Influenza vaccination [facility] Start: 04-01-2023 Advance Directive Discussion Advance Directive Discussion [facility] Start: 04-01-2023 Behavioral Health Screening Behavioral Health Screening [facility] Start: 03-15-2023 End: 03-15-2024 CBC W Auto Differential panel - Blood CBC + DIFF Lab Routine Anemia, unspecified type Expected: 03/15/2023, Expires: 03/15/2024 [facility] Work Phone: Comment on above: Expected: 03/15/2023, Expires: Start: 03-15-2023 End: 03-15-2024 Cobalamin (Vitamin B12) [Mass/volume] in Serum or Plasma VITAMIN B12 BLOOD Lab Routine Anemia, unspecified type Expected: 03/15/2023, Expires: 03/15/2024 [facility] Work Phone: Comment on above: Expected: 03/15/2023, Expires: 4 Start: 03-15-2023 End: 03-15-2024 Ferritin [Mass/volume] in Serum or Plasma FERRITIN BLD Lab Routine Anemia, unspecified type Expected: 03/15/2023, Expires: 03/15/2024 [facility] Work Phone: Comment on above: Expected: 03/15/2023, Expires: 4 Start: 03-15-2023 End: 03-15-2024 Folate [Mass/volume] in Serum or Plasma FOLATE SERUM Lab Routine Anemia, unspecified type Expected: 03/15/2023, Expires: 03/15/2024 [facility] Work Phone: Comment on above: Expected: 03/15/2023, Expires: 4 Start: 03-15-2023 End: 03-15-2024 Iron and Iron binding capacity panel - Serum or Plasma IRON + TIBC Lab Routine Anemia, unspecified type Expected: 03/15/2023, Expires: 03/15/2024 [facility] Work Phone: Comment on above: Expected: 03/15/2023, Expires: 4 Start: 01-17-2023 Patient discharge [facility] Start: 01-14-2023 [facility] Start: 01-13-2023 [facility] Start: 01-12-2023 Following clinical pathway protocol [facility] Start: 01-12-2023 Application of intermittent pneumatic compression device [facility] Start: 01-12-2023 Measuring intake and output [facility] Start: 01-12-2023 Aspiration precautions [facility] Start: 01-12-2023 Application of ice collar, cap or bag [facility] Start: 01-12-2023 Elevation of head of bed [facility] Start: 01-12-2023 Insertion of nasogastric tube [facility] Start: 01-12-2023 Admission procedure [facility] Start: 01-12-2023 Exploration using laparoscope Exploratory Laparoscopy (Not Applicable) [facility] Start: 01-12-2023 Hospital admission, emergency, from emergency room, medical nature [facility] Start: 01-12-2023 Patient referral to dietitian [facility] Start: 11-30-2022 Influenza vaccination [facility] Start: 04-01-2022 ADVANCE DIRECTIVE DISCUSSION ADVANCE DIRECTIVE DISCUSSION [facility] Start: 04-01-2022 DEPRESSION ASSESSMENT DEPRESSION ASSESSMENT [facility] Start: 12-08-2021 End: 12-08-2022 CBC W Auto Differential panel - Blood CBC + DIFF Lab Routine Prostate cancer (HCC) Expected: 12/08/2021, Expires: 12/08/2022 [facility] Work Phone: Comment on above: Expected: 12/08/2021, Expires: 3 Start: 12-08-2021 End: 12-08-2022 Comprehensive metabolic 2000 panel - Serum or Plasma COMP METABOLIC PANEL Lab Routine Prostate cancer (HCC) Expected: 12/08/2021, Expires: 12/08/2022 [facility] Work Phone: Comment on above: Expected: 12/08/2021, Expires: 3 Start: 12-08-2021 End: 12-08-2022 Lipid 1996 panel - Serum or Plasma LIPID PANEL BASIC Lab Routine Screening for lipid disorders Expected: 12/08/2021, Expires: 12/08/2022 [facility] Work Phone: Comment on above: Expected: 12/08/2021, Expires: 3 Start: 12-08-2021 End: 02-07-2022 PSA/PROSTSPECAG SCRN PSA/PROSTSPECAG SCRN Lab Routine Prostate cancer (HCC) Screening for prostate cancer Expected: 12/08/2021, Expires: 02/07/2022 [facility] Work Phone: Comment on above: Expected: 12/08/2021, Expires: 2 Start: 11-30-2021 Influenza vaccination INFLUENZA (#1) [facility] Start: 09-28-2021 Influenza vaccination INFLUENZA (#1) [facility] Comment on above: Postponed from 11/30/2020 (Declined at t his time) Start: 06-14-2021 COVID-19 VACCINE (4 - Booster for Pfizer series) COVID-19 VACCINE (4 - Booster for Pfizer series) [facility] Start: 04-11-2021 COVID-19 VACCINE (4 - Booster for Pfizer series) COVID-19 VACCINE (4 - Booster for Pfizer series) [facility] Start: 04-01-2021 ADVANCE DIRECTIVE DISCUSSION ADVANCE DIRECTIVE DISCUSSION [facility] Start: 09-30-2007 Medicare Annual Wellness Visit Medicare Annual Wellness Visit [facility] Start: 1997 RSV Vaccine (1 - 1-dose 60+ series) RSV Vaccine (1 - 1-dose 60+ series) [facility] Start: 11-14-1987 SHINGRIX VACCINE (1 of 2) SHINGRIX VACCINE (1 of 2) [facility] Hemoglobin.gastroint e stinal.lower [Presence] in Stool by Immunoassay FECAL OCCULT BLOOD TEST Lab Routine Screening for colon cancer Ordered: 12/08/2021 [facility] Work Phone: Comment on above: Ordered: 12/08/2021 End: 10-28-2025 MR Lower leg - right WO contrast MRI LOWER LEG WO IVCON RIGHT Radiology Routine Wound of right lower extremity, subsequent encounter Cellulitis of skin Abnormal x-ray 1 Occurrences starting 09/28/2024 until 10/28/2025 [facility] Work Phone: Comment on above: 1 Occurrences starting 09/28/2024 until 10/28/2025 Patient Education [facility] Work Phone: Patient referral [facility] Work Phone: End: 12-04-2024 RF Esophagus Views W contrast PO XR ESOPHAGRAM W DOUBLE CONTRAST Radiology Routine Swallowing disorder 1 Occurrences starting 11/05/2023 until 12/04/2024 [facility] Work Phone: Comment on above: 1 Occurrences starting 11/05/2023 until 12/04/2024 SARS-CoV-2 (COVID-19 ) RNA [Presence] in Respiratory specimen by ROSA with probe detection COVID NAAT, UPPER RESPIRATORY, ROUTINE Microbiology Routine URI, acute 11/19/2023 11:25 AM EDT [facility] Work Phone: SPEECH PLAN OF CARE CERTIFICATION SPEECH PLAN OF CARE CERTIFICATION Procedures Routine Dysphagia, unspecified type Ordered: 03/22/2022 [facility] Work Phone: Comment on above: Ordered: 03/22/2022 [facility] Immunizations Immunization Date Immunization Notes Care Provider Matt bedoya 08-20-2022 Covid Pfizer Bivalen t Booster Dr. Eduardo Infante Work Phone: [facility] 03-13-2022 influenza, injectabl e, quadrivalent, preservative free Dr. Eduardo Infante Work Phone: [facility] 03-13-2022 influenza virus vacc ine, unspecified formulation Eduardo Infante MD Work Phone: [facility] 06-20-2021 zoster vaccine recombinant Heber Flores MD Work Phone: [facility] 03-04-2021 zoster vaccine recombinant Heber Flores MD Work Phone: [facility] 02-14-2021 Covid (Pfizer) Dr. Eduardo butterfield Work Phone: [facility] 01-05-2021 tetanus toxoid, redu temitope diphtheria toxoid, and acellular pertussis vaccine, adsorbed Eduardo Infante MD Work Phone: [facility] 07-02-2020 COVID-19 vaccine, ag e 12+ yr (PFIZER-BIONTECH - PURPLE TOP) Eduardo Infante MD Work Phone: [facility] 06-10-2020 COVID-19 vaccine, ag e 12+ yr (PFIZER-BIONTECH - PURPLE TOP) Eduardo Infante MD Work Phone: [facility] 03-01-2020 influenza, high dose seasonal, preservative-free Eduardo Infante MD Work Phone: [facility] 12-15-2019 influenza, injectabl e, quadrivalent, preservative free Heber Flores MD Work Phone: [facility] 12-19-2018 pneumococcal polysaccharide vaccine, 23 valent Eduardo Infante MD Work Phone: [facility] Work Phone: 12-18-2017 pneumococcal conjuga te vaccine, 13 valent Eduardo Infante MD Work Phone: [facility] 02-20-2016 influenza, high dose seasonal, preservative-free Eduardo Infante MD Work Phone: [facility] Payers Date Payer Category Payer Self-pay [id number] 2022 [facility] ANTHEM ME DICARE SUPPLEMENT [id number] 2019 Unknown ANTHEM ANTHEM ME DICARE SUPPLEMENT [id number] 2019-Present [phone] [id number] [place] [id number] Indemnity [id number] 2019 Unknown [id number] 2012 Unknown [id number] 2007 Medicare MEDICARE MEDICAR E A AND B [id number] 2007-Present [phone] [place] [address] Medicare [id number] 2007 Medicare [id number] 2002 Medicare [id number] Unknown [id number] Unknown [id number] Unknown [id number] Unknown [id number] Social History Date Type Detail Facility Start: 12-05-2021 End: 11-19-2023 Tobacco smoking status NHIS Ex-smoker [facility] Start: 04-01-1966 End: 04-01-1991 History of tobacco use Current smoker [facility] Start: 04-01-1966 End: 04-01-1991 History of tobacco use Cigarette Smoker [facility] Start: 06-23-2021 End: 09-28-2024 Alcohol intake Current drinker of alcohol (finding) [facility] Start: 06-23-2021 End: 03-15-2023 Alcohol intake [facility] Start: 06-21-2021 History SDOH Alcohol Frequency 5 [facility] Start: 06-21-2021 End: 01-10-2022 History SDOH Alcohol Std Drinks 2 [facility] Start: 06-21-2021 End: 01-10-2022 History SDOH Alcohol Binge 1 [facility] Start: 11-25-2012 History SDOH Alcohol Comment socially [facility] Start: 06-21-2021 History SDOH Social Connections Phone 3 [facility] Start: 06-21-2021 History SDOH Social Connections Get Together 98 [facility] Start: 06-21-2021 History SDOH Physical Activity DPW 4 [facility] Start: 1935 Sex Assigned At Male [facility] Start: 03-12-2020 End: 01-12-2022 Exposure to SARS-CoV-2 (event) Not sure [facility] Start: 12-05-2021 End: 11-19-2023 Tobacco use and exposure Smokeless tobacco non-user [facility] Start: 12-05-2021 Tobacco Comment Patient used to smoke and quite in 1991 [facility] Start: 01-05-2021 End: 01-13-2023 Tobacco smoking status NHIS Unknown if ever smoked [facility] Start: 06-21-2021 End: 03-15-2023 Social connection and isolation panel [facility] How often do you get together with friends or relatives? Patient refused [facility] Do you belong to any clubs or organizations such as christian groups, unions, fraternal or athletic groups, or school groups? No [facility] Are you now , , , , never or living with a partner? [facility] How often to you hav e a drink containing alcohol? 4 or more times a week [facility] How many standard dr inks containing alcohol do you have on a typical day? 3 or 4 [facility] How often do you hav e 6 or more drinks on 1 occasion? Never [facility] Do you feel stress - tense, restless, nervous, or anxious, or unable to sleep at night because your mind is troubled all the time - these days [OSQ] Not at all [facility] (I/We) worried bg er (my/our) food would run out before (I/we) got money to buy more. Never true [facility] Start: 04-11-2020 Sexual orientation Heterosexual (finding) [facility] How many standard dr inks containing alcohol do you have on a typical day? 1 or 2 [facility] Start: 1935 Sex assigned at Not on file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 Data Vital Signs: Vital Signs Temp Pulse Resp BP Pulse Ox O2 Del Method O2 Flow Rate 99.0 F 78 16 118/56 L 97 Room Air 2 01/13/23 06:31 01/13/23 06:31 01/13/23 06:31 01/13/23 06:31 01/13/23 06:31 01/13/23 06:31 01/12/23 23:16 Oxygen Flow Rate (L/min) 2 Oxygen Delivery Method Room Air Weight: 120 lb 2.431 oz Body Mass Index (BMI) 17.2 Intake & Output: Intake and Output for Last 24 Hours 01/11/23 01/12/23 01/13/23 23:59 23:59 23:59 Intake Total 1050 / 1642.5 1400.83 / 1400.83 Output Total 275 / 275 300 / 300 Balance 775 / 1367.5 1100.83 / 1100.83 Lab / Micro Data 01/13/23 06:49 01/13/23 06:49 Labs: Laboratory Results - last 24 hr 01/12/23 16:35: WBC 7.1, RBC 4.33 L, Hgb 14.1, Hct 43.0, MCV 99.3 H, MCH 32.6 H,MCHC 32.8, RDW Std Deviation 46.4 H, RDW Coeff of Enio 12.6, Plt Count 244, MPV 8.9, Immature Gran % (Auto) 0.300, Neut % (Auto) 60.2, Lymph % (Auto) 30.6, Kleberg% (Auto) 7.2, Eos % (Auto) 1.1, Baso % (Auto) 0.6, Absolute Neuts (auto) 4.2, Absolute Lymphs (auto) 2.16, Nucleated RBC % 0, Sodium 140, Potassium 4.3, Chloride 105, Carbon Dioxide 29.0, Anion Gap 6, BUN 20 H, Creatinine 0.97, EstimCreat Clear Calc 45.33, Est GFR (MDRD) Af Amer 94, Est GFR (MDRD) Non-Af 78, BUN/Creatinine Ratio 20.6 H, Glucose 126 H, Lactic Acid 3.6 H*, Calcium 9.2, Total Bilirubin 0.50, AST 26, ALT 35, Alkaline Phosphatase 95, Total Protein 6.7, Albumin 3.8, Globulin 2.9, Albumin/Globulin Ratio 1.3, Lipase 44 01/12/23 17:00: Urine Color Yellow, Urine Clarity Cloudy, Urine pH 8.0, Ur Specific [place] 1.015, Urine Protein 15 H, Urine Glucose (UA) Normal, Urine Ketones 5 H, Urine Occult Blood Negative, Urine Nitrite Negative, Urine Bilirubin Negative, Urine Urobilinogen Normal, Ur Leukocyte Esterase 25 H, UrineRBC 0 SEEN, Urine WBC 0 SEEN, Ur Squamous Epith Cells 0 SEEN, Amorphous Sediment1+, Urine Bacteria 0 SEEN, Urine Mucus 0 SEEN 01/12/23 23:00: Lactic Acid 2.7 H* 01/13/23 06:49: WBC 8.2, RBC 3.59 L, Hgb 12.0 L, Hct 36.3 L, MCV 101.1 H, MCH 33.4 H, MCHC 33.1, RDW Std Deviation 47.2 H, RDW Coeff of Enio 12.7, Plt Count 158, MPV 8.6, Immature Gran % (Auto) 0.600, Neut % (Auto) 84.4 H, Lymph % (Auto)7.8 L, Kleberg % (Auto) 7.1, Eos % (Auto) 0.0, Baso % (Auto) 0.1, Absolute Neuts (auto) 6.9, Absolute Lymphs (auto) 0.64 L, Nucleated RBC % 0, Sodium 143, Potassium 4.0, Chloride 113 H, Carbon Dioxide 25.0, Anion Gap 5, BUN 19 H, Creatinine 0.81, Estim Creat Clear Calc 51.40, Est GFR (MDRD) Af Amer 117, Est GFR (MDRD) Non-Af 97, BUN/Creatinine Ratio 23.5 H, Glucose 96, Calcium 7.7 L, Phosphorus 2.6, Magnesium 2.2 Radiography Diagnostic Testing: Radiology Impression Abdomen/Pelvis CT 01/12/23 18:02 IMPRESSION: 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 Clinical correlation and follow-up imaging would be useful. N.B. : The above Results were Read Back by Nathaniel Avitia MD to Juan Manuel Ann DO, and understanding confirmed on 01/12/2023 19:03:55 (ET). 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 Clinical correlation and follow-up imaging would be useful. N.B. : The above Results were Read Back by Nathaniel Avitia MD to Juan Manuel Ann DO, and understanding confirmed on 01/12/2023 19:03:55 (ET). Electronically Signed: Nathaniel Avitia MD at 19:05 EDT Reading Location ID and State: [id number] / [employer] Tel , Service support , KUB X-Ray 01/12/23 19:30 IMPRESSION: Nasogastric tube with the tip in the left upper quadrant, likely in the fundus of stomach. No bowel obstruction. Electronically Signed: Nathaniel Avitia MD at 20:10 EDT , Physical Exam Const oriented x3 and no apparent distress Resp normal respiratory effort GI GI Narrative: Nasogastric tube in place with thin brown?green bilious output of minimal volume. Patient with some mild voluntary guarding on exam but is nondistended, soft, and appropriately tender to palpation just about his incisions?primarily in the left lower abdominal quadrant. Incisions remain covered with operative dressings. 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 Overall he is controlled for pain and his abdominal exam is appropriate with decreased discomfort from his presentation. He also noted to have a improvement in his lactic acid from preop on last evening's labs. This morning his urine output is reviewed and has been reported at 1.38 mL/kg/h which suggests adequate resuscitation. Plan: Neuro: As needed Dilaudid, add scheduled Toradol 15 mg every 6 hours Pulm/CV: Incentive spirometer, maintain aspiration precautions FEN/GI: Continue to monitor daily electrolytes, continue nasogastric tube to lowintermittent wall suction, stress ulcer prophylaxis with Protonix, monitor for return of bowel function, repeat lactic acid : Discontinue Reynoso catheter and follow for spontaneous void Heme/ID: CBC shows slight downtrend in hemoglobin but this could be partially hemodilutional. Given patient's concern for possible superior mesenteric vein thrombus, will start subcutaneous heparin today 5000 units 3 times daily. We will continue to trend CBC Endo: No current issues Proph: Ambulate as tolerated, aspiration precautions, heparin 5000 units 3 timesdaily Dispo: Continue inpatient care Charges/Coding Visit Charges Inpatient E&M: 51018 Subs Hosp L2 01/13/23 1132 <Electronically signed by Waqas Aguilar MD> Cosigner Signature (if applicable): CC: ~ Signed [facility] Work Phone: 1(244) 670-592010-14-2023 Discharge summary Author Juan Manuel Ann [facility] January 12, 2023 8:26pm Note Date/Time January 12, 2023 5 :36pm [facility] Medical Records Department [address] [place] [address] Emergency Department Summary 01/12/23 MR#: [id number] Acct: [id number] Name: ROXANA MUIR Rep #:[id number] : 1935 87 From: Juan Manuel Ann DO PCP: Dr. dEuardo Infante MD Status:REG S PA [place] [facility] [place] - GI History of Present Illness Chief Complaint: Abd Pain Narrative Narrative: 87-year-old male presenting with abdominal pain. He states it feels like his entire abdomen is burning. This started about 8 AM after breakfast. Patient was able to eat breakfast and eat lunch but states he started to feel nauseous. His pain is gradually increased over the course of the day. He states he had 1 bowel movement today that was several inches long and thin like a pencil lead and then he had a normal bowel movement. Now he is not passing much flatus. Hehas a distant history of a large polyp which could not be removed so he had a segment of his bowel removed by Dr. Hendrix anastomosis was about 10 years ago. [facility] Medical History History of intestine removal Lower limb pain, anterior Wound of right lower extremity Home Medications NK 01/12/23 [History Last Taken Unknown] Allergy/AdvReac Type Severity Reaction Status Date / Time No Known Allergies Allergy Verified 01/12/23 15:55 Social History Smoking Status: Former smoker ROS ROS ED Constitutional Constitutional ED: Denies chills, fever(s) or sweats Eyes Eyes: Denies blurry vision or change in vision ENT ENT ED: Denies ear pain or sore throat Cardiovascular Cardiovascular: Denies chest pain, palpitations or racing heartbeat Respiratory/Chest Respiratory/Chest: Denies cough, dyspnea or sputum Gastrointestinal Gastrointestinal: Reports abdominal pain and nausea; Denies constipation, diarrhea or vomiting Genitourinary Genitourinary ED: Denies dysuria, hematuria or urinary frequency Musculoskeletal Musculoskeletal: Denies arthralgias, myalgias or neck pain Integumentary Denies abscess, Abrasions or rash Neurologic Neurologic: Denies headache(s), paresthesias or weakness Psychiatric Psychiatric: Denies anxiety, depression, suicidal ideation or suicidal thoughts Endocrine Endocrinology: Denies polydipsia or polyuria EXAM Physical Exam Const Vital Signs: 01/12/23 15:55 01/12/23 17:53 01/12/23 19:00 Temperature 97 F L Temperature Source Temporal Pulse Rate 58 L 62 61 Respiratory Rate 18 15 15 Blood Pressure 153/73 H 149/89 H Blood Pressure Mean 99 109 Pulse Ox 100 98 98 Oxygen Delivery Method Room Air Room Air Room Air 01/12/23 19:03 Temperature Temperature Source Pulse Rate 63 Respiratory Rate 15 Blood Pressure 155/79 H Blood Pressure Mean 104 Pulse Ox 98 Oxygen Delivery Method Positive well nourished General Appearance ED: NAD; Negative for pallor HEENT Reports moist mucous membranes normocephalic Eyes PERRL and EOMs intact bilaterally Resp normal respiratory effort and clear to auscultation bilaterally Auscultation: rales, rhonchi and wheezes Cardio regular rate and regular rhythm GI Palpation: tender periumbilical and guarding Back/Spine no CVA tenderness Neuro CN's II-XII intact bilaterally and moves all extremities Sensorium / Orientation: alert Psych mental status grossly normal and thought process normal Skin no wounds General Skin Exam: Negative for jaundice or pallor MDM MDM MDM Narrative Medical decision making narrative: Patient is presenting with increasing diffuse abdominal pain which feels like burning since earlier today. Differential includes colitis, diverticulitis, gastritis, pancreatitis, constipation, UTI, pyelonephritis, renal calculi, ureteral calculi, bowel obstruction, malignancy, dehydration, electrolyte abnormalities. CBC will be obtained to assess white blood cell count, hemoglobin, platelets. CMP to assess liver function, renal function, electrolytes. Lipase to assess for pancreatitis. Urinalysis to assess for UTI. CT of the abdomen pelvis with IV contrast will be obtained. Patient was medicated with IV fluids, morphine, Zofran. He shows a white blood cell count is normal at 7.1. Hemoglobin stable 14.1. Platelets are normal at 244. Renal function is normal. LFTs and lipase are normal. Patient initially medicated with morphine and went from a 9 to a 7. He is given a second dose. On reevaluation he is still pretty tender. At the time the CT was performed I did see what looks like bowel obstruction secondary to volvulus as I see a swirl sign. I spoke with Dr. Aguilar at the time and he reviewed the CT with me. 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 The radiologist called me later to tell me that there is a. Mesenteric vein thrombosis in addition to admitted to volvulus but the bowel did not exhibit ischemic changes on the CT. This was discussed with Dr. Aguilar. Patient was taken to the OR. Impression: 1. Volvulus 2. Superior mesenteric vein thrombosis 3. Lactic acidosis Lab Data Labs: Laboratory Results - last 24 hr 01/12/23 01/12/23 16:35 17:00 WBC 7.1 RBC 4.33 L Hgb 14.1 Hct 43.0 MCV 99.3 H MCH 32.6 H MCHC 32.8 RDW Std Deviation 46.4 H RDW Coeff of Enio 12.6 Plt Count 244 MPV 8.9 Immature Gran % (Auto) 0.300 Neut % (Auto) 60.2 Lymph % (Auto) 30.6 Kleberg % (Auto) 7.2 Eos % (Auto) 1.1 Baso % (Auto) 0.6 Absolute Neuts (auto) 4.2 Absolute Lymphs (auto) 2.16 Nucleated RBC % 0 Sodium 140 Potassium 4.3 Chloride 105 Carbon Dioxide 29.0 Anion Gap 6 BUN 20 H Creatinine 0.97 Estim Creat Clear Calc 45.33 Est GFR (MDRD) Af Amer 94 Est GFR (MDRD) Non-Af 78 BUN/Creatinine Ratio 20.6 H Glucose 126 H Lactic Acid 3.6 H* Calcium 9.2 Total Bilirubin 0.50 AST 26 ALT 35 Alkaline Phosphatase 95 Total Protein 6.7 Albumin 3.8 Globulin 2.9 Albumin/Globulin Ratio 1.3 Lipase 44 Urine Color Yellow Urine Clarity Cloudy Urine pH 8.0 Ur Specific [place] 1.015 Urine Protein 15 H Urine Glucose (UA) Normal Urine Ketones 5 H Urine Occult Blood Negative Urine Nitrite Negative Urine Bilirubin Negative Urine Urobilinogen Normal Ur Leukocyte Esterase 25 H Urine RBC 0 SEEN Urine WBC 0 SEEN Ur Squamous Epith Cells 0 SEEN Amorphous Sediment 1+ Urine Bacteria 0 SEEN Urine Mucus 0 SEEN Radiography Diagnostic Testing: Clinical Impression(s) from Imaging Studies Abdomen/Pelvis CT 01/12/23 18:02 IMPRESSION: 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 Clinical correlation and follow-up imaging would be useful. N.B. : The above Results were Read Back by Nathaniel Avitia MD to Juan Manuel Ann DO, and understanding confirmed on 01/12/2023 19:03:55 (ET). 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 Clinical correlation and follow-up imaging would be useful. N.B. : The above Results were Read Back by Nathaniel Avitia MD to Juan Manuel Ann DO, and understanding confirmed on 01/12/2023 19:03:55 (ET). Electronically Signed: Nathaniel Avitia MD at 19:05 EDT , Discharge Plan Triage Chief Complaint: Abd Pain ED Provider: Juan Manuel Ann Dx/Rx/DC Orders Prescriptions: No Action NK Primary Care Provider: Eduardo Infante Referrals: Eduardo Infante MD [Primary Care Provider] - What to do if you have Problems For any increased pain, shortness of breath, bleeding, nausea or vomiting, chestpain, or any unexpected problems, contact your Primary Care Provider. Call [facility] ([phone]) or report to the closest Emergency Room. Call 911 if necessary. 01/12/232001 <Electronically signed by Juan Manuel Ann DO> Cosigner Signature (if applicable): CC: Dr. Eduardo Infante MD ~ Signed ADDENDUM by Dr. Juan Manuel Ann DO on 01/12/[address] Aguilar ordered an EKG preoperatively to be assessed. This was interpreted bymyself as a sinus rhythm at 89 bpm with first-degree AV block without evidence of ischemia. 01/12/232024<Electronically signed by Juan Manuel Ann DO> Cosigner Signature (if applicable): cc: Dr. Eduardo Infante MD ~* Signed ADDENDUM by Dr. Juan Manuel Ann DO on 01/12/23 at 2025 NG was placed. KUB following NG on my interpretation shows good placement. Patient now improved pain. Declining morphine 01/12/232025<Electronically signed by Juan Manuel Ann DO> Cosigner Signature (if applicable): cc: Dr. Eduardo Infante MD ~* Signed [facility] Work Phone: 1(559) 897-416510-14-2023 History and physical note Author Waqas Aguilar [facility] January 12, 2023 7:46pm Note Date/Time January 12, 2023 7 :15pm [facility] Medical Records Department [address] [place] [address] History & Physical Exam 01/12/231913 MR#: [id number] Acct: [id number] Name: ROXANA MUIR Rep #:[id number] : 1935 87 From: Waqas Machado PCP: Dr. Eduardo Infante MD Status:REG E R Location: ED HPI - General General Date of Service: 01/12/23 Chief Complaint: Acute onset abdominal pain and nausea HPI Narrative ROXANA MUIR, is a 87 M who presents to [facility] with complaints of burning abdominal pain and associated nausea that began approximately 1330 this afternoon. He states that this pain was preceded with the production of a pencil?thin stool. He notes that the pain became progressive and reached a height of a 9 out of 10. He flatly declares that he has never had pain like this before in his entire life. Patient's ER work-up is notable for CBC without leukocytosis, normal hemoglobin,CMP within normal limits, and CT imaging of the abdomen pelvis that was not readimmediately by radiology but showed evidence of a mesenteric swirl sign. Emergency medicine expressed concern about patient's abdominal exam and this finding and notified me so I requested a lactic acid and presented to patient's bedside. 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 Patient denies any current medications and reports that he is quite healthy. Irma have a past surgical history inclusive of an appendectomy as a youth, a prostatectomy in 1996 for prostate cancer, and lastly a laparoscopic transverse colectomy with primary colocolonic anastomosis with Dr. Hendrix on 12/18/2012. denies any colonoscopy since 2012 but reports that his bowels have been very regular. [facility] Medical History History of intestine removal Lower limb pain, anterior Wound of right lower extremity Home Medications NK 01/12/23 [History Last Taken Unknown] Allergy/AdvReac Type Severity Reaction Status Date / Time No Known Allergies Allergy Verified 01/12/23 15:55 Social History Smoking Status: Former smoker ROS Constitutional Constitutional: Denies anorexia or change in weight Gastrointestinal Gastrointestinal: Reports abdominal pain, constipation and nausea; Denies vomiting Vital Signs Vital Signs Vital Signs: 01/12/23 15:55 Temperature 97 F L Temperature Source Temporal Pulse Rate 58 L Respiratory Rate 18 Blood Pressure 153/73 H Blood Pressure Mean 99 Pulse Ox 100 Oxygen Delivery Method Room Air Weight Weight: 126 lb 14.4 oz Body Mass Index (BMI) 18.1 Physical Exam Const alert and oriented x3 Constitutional Narrative: Appears anxious General Appearance: cooperative Resp normal respiratory effort GI GI Narrative: Minimally distended, patient tenses his abdomen with every attempt at exam, moderate tenderness with exam particularly in the bilateral lower quadrants and left lower quadrant greater than right lower quadrant Results Lab / Micro Data 01/12/23 16:35 01/12/23 16:35 Labs: Laboratory Results - last 24 hr 01/12/23 16:35: WBC 7.1, RBC 4.33 L, Hgb 14.1, Hct 43.0, MCV 99.3 H, MCH 32.6 H,MCHC 32.8, RDW Std Deviation 46.4 H, RDW Coeff of Enio 12.6, Plt Count 244, MPV 8.9, Immature Gran % (Auto) 0.300, Neut % (Auto) 60.2, Lymph % (Auto) 30.6, Kleberg% (Auto) 7.2, Eos % (Auto) 1.1, Baso % (Auto) 0.6, Absolute Neuts (auto) 4.2, Absolute Lymphs (auto) 2.16, Nucleated RBC % 0, Sodium 140, Potassium 4.3, Chloride 105, Carbon Dioxide 29.0, Anion Gap 6, BUN 20 H, Creatinine 0.97, EstimCreat Clear Calc 45.33, Est GFR (MDRD) Af Amer 94, Est GFR (MDRD) Non-Af 78, BUN/Creatinine Ratio 20.6 H, Glucose 126 H, Lactic Acid 3.6 H*, Calcium 9.2, Total Bilirubin 0.50, AST 26, ALT 35, Alkaline Phosphatase 95, Total Protein 6.7, Albumin 3.8, Globulin 2.9, Albumin/Globulin Ratio 1.3, Lipase 44 01/12/23 17:00: Urine Color Yellow, Urine Clarity Cloudy, Urine pH 8.0, Ur Specific [place] 1.015, Urine Protein 15 H, Urine Glucose (UA) Normal, Urine Ketones 5 H, Urine Occult Blood Negative, Urine Nitrite Negative, Urine Bilirubin Negative, Urine Urobilinogen Normal, Ur Leukocyte Esterase 25 H, UrineRBC 0 SEEN, Urine WBC 0 SEEN, Ur Squamous Epith Cells 0 SEEN, Amorphous Sediment1+, Urine Bacteria 0 SEEN, Urine Mucus 0 SEEN Radiology Impression Abdomen/Pelvis CT 01/12/23 18:02 IMPRESSION: 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 Clinical correlation and follow-up imaging would be useful. N.B. : The above Results were Read Back by Nathaniel Avitia MD to Juan Manuel Ann DO, and understanding confirmed on 01/12/2023 19:03:55 (ET). 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 Clinical correlation and follow-up imaging would be useful. N.B. : The above Results were Read Back by Nathaniel Avitia MD to Juan Manuel Ann DO, and understanding confirmed on 01/12/2023 19:03:55 (ET). 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 I suspect that he has an internal hernia component to this volvulus through the mesenteric defect of his prior colon resection 10 years ago. He has a bit of a difficult exam given his voluntary guarding beforeI even palpate his abdomen, but with the presence of tenderness, lactic acidosis, and his radiologic imaging I am recommending that we proceed for emergentexploration. I have discussed possible diagnostic laparoscopy versus exploratory laparotomy. Patient's operative report from November 2012 details an extensive period of lysis of adhesions and I have shared with Mr. Coates that I would like to minimize his time of ischemia to his bowel as well as his anesthetic time given his advanced age. Additionally I have informed him that he is at some risk for requiring a bowel resection with reanastomosis. He and his spouse informed understanding of this information and verbally he gives his assent to proceed as described. To this point emergency medicine has infused 1 L of IV fluids and I have requested that the continue patient on maintenance IV fluids as a means of boosting his blood pressure and maintaining perfusion. I have also requested placement of a nasogastric tube for gastric and small bowel decompression. Patient likely to require this tube post procedure. Charges/Coding Visit Charges Inpatient E&M: 27232 Init Hosp L3 01/12/231945 <Electronically signed by Waqas Aguilar MD> Cosigner Signature (if applicable): CC: Dr. Waqas Aguilar MD; Dr. Eduardo Infante MD~ Signed [facility] Work Phone: 1(724) 190-636710-14-2023 Discharge summary Author Juan Manuel Ann [facility] January 12, 2023 8:26pm Note Date/Time January 12, 2023 5 :36pm [facility] Medical Records Department [address] [place] [address] Emergency Department Summary 01/12/23 MR#: [id number] Acct: [id number] Name: ROXANA MUIR Rep #:[id number] : 1935 87 From: Juan Manuel Ann DO PCP: Dr. Eduardo Infante MD Status:REG S [place] [facility] [place] - [place] History of Present Illness Chief Complaint: Abd Pain Narrative Narrative: 87-year-old male presenting with abdominal pain. He states it feels like his entire abdomen is burning. This started about 8 AM after breakfast. Patient was able to eat breakfast and eat lunch but states he started to feel nauseous. His pain is gradually increased over the course of the day. He states he had 1 bowel movement today that was several inches long and thin like a pencil lead and then he had a normal bowel movement. Now he is not passing much flatus. Hehas a distant history of a large polyp which could not be removed so he had a segment of his bowel removed by Dr. Hendrix anastomosis was about 10 years ago. [facility] Medical History History of intestine removal Lower limb pain, anterior Wound of right lower extremity Home Medications NK 01/12/23 [History Last Taken Unknown] Allergy/AdvReac Type Severity Reaction Status Date / Time No Known Allergies Allergy Verified 01/12/23 15:55 Social History Smoking Status: Former smoker ROS ROS ED Constitutional Constitutional ED: Denies chills, fever(s) or sweats Eyes Eyes: Denies blurry vision or change in vision ENT ENT ED: Denies ear pain or sore throat Cardiovascular Cardiovascular: Denies chest pain, palpitations or racing heartbeat Respiratory/Chest Respiratory/Chest: Denies cough, dyspnea or sputum Gastrointestinal Gastrointestinal: Reports abdominal pain and nausea; Denies constipation, diarrhea or vomiting Genitourinary Genitourinary ED: Denies dysuria, hematuria or urinary frequency Musculoskeletal Musculoskeletal: Denies arthralgias, myalgias or neck pain Integumentary Denies abscess, Abrasions or rash Neurologic Neurologic: Denies headache(s), paresthesias or weakness Psychiatric Psychiatric: Denies anxiety, depression, suicidal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 Rep #:[id number] : 1935 87 From: Waqas Machado PCP: Dr. Eduardo Infante MD Status:REG E R Location: ED HPI - General General Date of Service: 01/12/23 Chief Complaint: Acute onset abdominal pain and nausea HPI Narrative ROXANA MUIR, is a 87 M who presents to [facility] with complaints of burning abdominal pain and associated nausea that began approximately 1330 this afternoon. He states that this pain was preceded with the production of a pencil?thin stool. He notes that the pain became progressive and reached a height of a 9 out of 10. He flatly declares that he has never had pain like this before in his entire life. Patient's ER work-up is notable for CBC without leukocytosis, normal hemoglobin,CMP within normal limits, and CT imaging of the abdomen pelvis that was not readimmediately by radiology but showed evidence of a mesenteric swirl sign. Emergency medicine expressed concern about patient's abdominal exam and this finding and notified me so I requested a lactic acid and presented to patient's bedside. 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 Patient denies any current medications and reports that he is quite healthy. Irma have a past surgical history inclusive of an appendectomy as a youth, a prostatectomy in 1996 for prostate cancer, and lastly a laparoscopic transverse colectomy with primary colocolonic anastomosis with Dr. Hendrix on 12/18/2012. denies any colonoscopy since 2012 but reports that his bowels have been very regular. [facility] Medical History History of intestine removal Lower limb pain, anterior Wound of right lower extremity Home Medications NK 01/12/23 [History Last Taken Unknown] Allergy/AdvReac Type Severity Reaction Status Date / Time No Known Allergies Allergy Verified 01/12/23 15:55 Social History Smoking Status: Former smoker ROS Constitutional Constitutional: Denies anorexia or change in weight Gastrointestinal Gastrointestinal: Reports abdominal pain, constipation and nausea; Denies vomiting Vital Signs Vital Signs Vital Signs: 01/12/23 15:55 Temperature 97 F L Temperature Source Temporal Pulse Rate 58 L Respiratory Rate 18 Blood Pressure 153/73 H Blood Pressure Mean 99 Pulse Ox 100 Oxygen Delivery Method Room Air Weight Weight: 126 lb 14.4 oz Body Mass Index (BMI) 18.1 Physical Exam Const alert and oriented x3 Constitutional Narrative: Appears anxious General Appearance: cooperative Resp normal respiratory effort GI GI Narrative: Minimally distended, patient tenses his abdomen with every attempt at exam, moderate tenderness with exam particularly in the bilateral lower quadrants and left lower quadrant greater than right lower quadrant Results Lab / Micro Data 01/12/23 16:35 01/12/23 16:35 Labs: Laboratory Results - last 24 hr 01/12/23 16:35: WBC 7.1, RBC 4.33 L, Hgb 14.1, Hct 43.0, MCV 99.3 H, MCH 32.6 H,MCHC 32.8, RDW Std Deviation 46.4 H, RDW Coeff of Enio 12.6, Plt Count 244, MPV 8.9, Immature Gran % (Auto) 0.300, Neut % (Auto) 60.2, Lymph % (Auto) 30.6, Kleberg% (Auto) 7.2, Eos % (Auto) 1.1, Baso % (Auto) 0.6, Absolute Neuts (auto) 4.2, Absolute Lymphs (auto) 2.16, Nucleated RBC % 0, Sodium 140, Potassium 4.3, Chloride 105, Carbon Dioxide 29.0, Anion Gap 6, BUN 20 H, Creatinine 0.97, EstimCreat Clear Calc 45.33, Est GFR (MDRD) Af Amer 94, Est GFR (MDRD) Non-Af 78, BUN/Creatinine Ratio 20.6 H, Glucose 126 H, Lactic Acid 3.6 H*, Calcium 9.2, Total Bilirubin 0.50, AST 26, ALT 35, Alkaline Phosphatase 95, Total Protein 6.7, Albumin 3.8, Globulin 2.9, Albumin/Globulin Ratio 1.3, Lipase 44 01/12/23 17:00: Urine Color Yellow, Urine Clarity Cloudy, Urine pH 8.0, Ur Specific [place] 1.015, Urine Protein 15 H, Urine Glucose (UA) Normal, Urine Ketones 5 H, Urine Occult Blood Negative, Urine Nitrite Negative, Urine Bilirubin Negative, Urine Urobilinogen Normal, Ur Leukocyte Esterase 25 H, UrineRBC 0 SEEN, Urine WBC 0 SEEN, Ur Squamous Epith Cells 0 SEEN, Amorphous Sediment1+, Urine Bacteria 0 SEEN, Urine Mucus 0 SEEN Radiology Impression Abdomen/Pelvis CT 01/12/23 18:02 IMPRESSION: 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 Clinical correlation and follow-up imaging would be useful. N.B. : The above Results were Read Back by Nathaniel Avitia MD to Juan Manuel Ann DO, and understanding confirmed on 01/12/2023 19:03:55 (ET). 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 Clinical correlation and follow-up imaging would be useful. N.B. : The above Results were Read Back by Nathaniel Avitia MD to Juan Manuel Ann DO, and understanding confirmed on 01/12/2023 19:03:55 (ET). 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 I suspect that he has an internal hernia component to this volvulus through the mesenteric defect of his prior colon resection 10 years ago. He has a bit of a difficult exam given his voluntary guarding beforeI even palpate his abdomen, but with the presence of tenderness, lactic acidosis, and his radiologic imaging I am recommending that we proceed for emergentexploration. I have discussed possible diagnostic laparoscopy versus exploratory laparotomy. Patient's operative report from November 2012 details an extensive period of lysis of adhesions and I have shared with Mr. Coates that I would like to minimize his time of ischemia to his bowel as well as his anesthetic time given his advanced age. Additionally I have informed him that he is at some risk for requiring a bowel resection with reanastomosis. He and his spouse informed understanding of this information and verbally he gives his assent to proceed as described. To this point emergency medicine has infused 1 L of IV fluids and I have requested that the continue patient on maintenance IV fluids as a means of boosting his blood pressure and maintaining perfusion. I have also requested placement of a nasogastric tube for gastric and small bowel decompression. Patient likely to require this tube post procedure. Charges/Coding Visit Charges Inpatient E&M: 72413 Init Hosp L3 01/12/231945 <Electronically signed by Waqas Aguilar MD> Cosigner Signature (if applicable): CC: Dr. Waqas Aguilar MD; Dr. Eduardo Infante MD~ Signed [facility] Work Phone: Hospital Discharge instructions Additional Instructions Wound care as discussed for your leg wound. Return tomorrow for ultrasound of your right lower leg for your concerns. They are here from 8 AM to 1 PM. I would call to confirm good time to show up.[facility] Work Phone: Hospital Discharge instructions Additional Instructions Please follow-up with Dr. Turk for wound check and to ensure this is healing appropriately. He might require wound care. Your case was reviewed with orthopedics in the look at your CT. At this time thankfully your lab work is not particularly consistent with osteomyelitis and your CT does not show findings. May follow-up with your primary care doctor outpatient for an MRI but this does not need to be done emergently you do not need to be admitted to the hospital for MRI/IV antibiotics. If you develop fever or worsening symptoms please return to the emergency room. The orthopedist did recommend starting you on antibiotics which have been prescribed.[facility] Work Phone: Reason for referral (narrative)* Diagnostic Procedure Only (Urgent) - Closed Specialty Diagnoses / Procedures Referred By Junior hernandez Referred To Contact XR IMAGING Diagnoses Rib pain on right side Procedures XR RIBS/CHEST 3V AP RIB/OBLS/CXR RIGHT RADEX RIBS UNI W/POSTEROANT CH MINIMUM 3 VIEWS Antoinette Noel APRN.CNP [address] [place] [address] Xr Imaging Referral ID Status Reason Start Date Expiration Date V isits Requested Visits Authorized [id number] Closed Auto-Generate d Referral 12/05/2021 01/04/2023 1 1 [facility] for referral (narrative)* Diagnostic Procedure Only (Routine) - New Request Specialty Diagnoses / Procedures Referred By Contac mary Referred To Contact XR IMAGING Diagnoses Swallowing disorder Procedures XR ESOPHAGRAM W DOUBLE CONTRAST RADIOLOGIC EXAM ESOPHAGUS DOUBLE CONTRAST STUDY Eduardo Infante MD [address] [place] [address] [place] [address] Referral ID Status Reason Start Date Expiration Date Visits Requested Visits Authorized [id number] New Request Auto-Generat ed Referral 11/05/2023 12/04/2024 1 1 [facility] for referral (narrative)* Diagnostic Procedure Only (Urgent) - Closed Specialty Diagnoses / Procedures Referred By Contac t Referred To Contact XR IMAGING Diagnoses Rib pain on right side Procedures XR RIBS/CHEST 3V AP RIB/OBLS/CXR RIGHT RADEX RIBS UNI W/POSTEROANT CH MINIMUM 3 VIEWS Antoinette Noel APRN.INSURANCE RISK SURVEYOR [address] [place] [id number] [place] [address] Referral ID Status Reason Start Date Expiration Date V isits Requested Visits Authorized [id number] Closed Auto-Generate d Referral 12/05/2021 01/04/2023 1 1 Electronically signed by Antoinette Noel [employer]OMATIC BU[employer]ING WHEEL FORMER.INSURANCE RISK SURVEYOR at 12/05/2021 10:59 AM EDT [facility] for referral (narrative)* Diagnostic Procedure Only (Routine) - Closed Specialty Diagnoses / Procedures Referred By Contac t Referred To Contact XR IMAGING Diagnoses Acute pain of right shoulder Procedures XR SHOULDER GENERAL 3V OR MORE AP/TRUE AP/OTHER RIGHT RADEX SHOULDER COMPLETE MINIMUM 2 VIEWS Eduardo Infante MD [address] [place] [address] [place] [address] Referral ID Status Reason Start Date Expiration Date V isits Requested Visits Authorized [id number] Closed Auto-Generate d Referral 06/23/2021 07/23/2022 1 1 [facility] for referral (narrative)* Diagnostic Procedure Only (Routine) - Closed Specialty Diagnoses / Procedures Referred By Contac t Referred To Contact XR IMAGING Diagnoses Wound of right lower extremity, subsequent encounter Procedures XR TIBIA FIBULA 2V AP/LAT RT X-RAY LOWER LEG Eduardo Infante MD [address] [place] [address] [place] [address] Referral ID Status Reason Start Date Expiration Date V isits Requested Visits Authorized [id number] Closed Auto-Generate d Referral 01/05/2021 02/04/2022 1 1 [facility] for referral (narrative)No reason for referral information [facility]WM[facility] Work Phone: Reason for visit Narrative* Diagnostic Procedure Only (Urgent) - Closed Specialty Diagnoses / Procedures Referred By Contac t Referred To Contact XR IMAGING Diagnoses Rib pain on right side Procedures XR RIBS/CHEST 3V AP RIB/OBLS/CXR RIGHT RADEX RIBS UNI W/POSTEROANT CH MINIMUM 3 VIEWS Antoinette Noel, [employer] FORMER.INSURANCE RISK SURVEYOR [address] [place] [address] [place] [address] Referral ID Status Reason Start Date Expiration Date V isits Requested Visits Authorized [id number] Closed Auto-Generate d Referral 12/05/2021 01/04/2023 1 1 [facility] for visit Narrative* Diagnostic Procedure Only (Routine) - Closed Specialty Diagnoses / Procedures Referred By Contac t Referred To Contact XR IMAGING Diagnoses Acute pain of right shoulder Procedures XR SHOULDER GENERAL 3V OR MORE AP/TRUE AP/OTHER RIGHT RADEX SHOULDER COMPLETE MINIMUM 2 VIEWS Eduardo Infante MD [address] [place] [address] [place] [address] Referral ID Status Reason Start Date Expiration Date V isits Requested Visits Authorized [id number] Closed Auto-Generate d Referral 06/23/2021 07/23/2022 1 1 [facility] for visit Narrative* Diagnostic Procedure Only (Routine) - Closed Specialty Diagnoses / Procedures Referred By Contac t Referred To Contact XR IMAGING Diagnoses Wound of right lower extremity, subsequent encounter Procedures XR TIBIA FIBULA 2V AP/LAT RT X-RAY LOWER LEG Eduardo Infante MD [address] [place] [address] [place] [address] Referral ID Status Reason Start Date Expiration Date V isits Requested Visits Authorized [id number] Closed Auto-Generate d Referral 01/05/2021 02/04/2022 1 1 [facility] for visit Narrative* Diagnostic Procedure Only (Urgent) - Closed Specialty Diagnoses / Procedures Referred By Contac t Referred To Contact XR IMAGING Diagnoses Wound of right lower extremity, subsequent encounter Procedures XR TIBIA FIBULA 2V AP/LAT RIGHT RADIOLOGIC EXAMINATION TIBIA & FIBULA 2 VIEWS Ned Macias MD [address] [place] [address] Phone: tel: fax: [place] [address] Referral ID Status Reason Start Date Expiration Date V isits Requested Visits Authorized [id number] Closed Auto-Generate d Referral 08/25/2024 09/24/2025 1 1 [facility] for visit Narrative* MRI/CT (Routine) - Closed Specialty Diagnoses / Procedures Referred By Contac t Referred To Contact MR IMAGING Diagnoses Wound of right lower extremity, subsequent encounter Cellulitis of skin Abnormal x-ray Procedures MRI LOWER LEG WO IVCON RIGHT MRI LOWER EXTREM OTH/THN JT W/O CONTR MATRL Eduardo Infante MD [address] [place] [address] Phone: tel: fax: [place] [address] Referral ID Status Reason Start Date Expiration Date V isits Requested Visits Authorized [id number] Closed Auto-Generate d Referral 09/28/2024 10/28/2025 1 1 [facility] Reason for Referral Specialty Diagnoses / Procedures Referred By Contac t Referred To Contact Ent - Otolaryngology Diagnoses Ear lesion Procedures CONSULT TO ENT OFFICE/OUTPATIENT [facility] 60-74 MINUTES Eduardo Infante MD [address] [place] [address] Referral ID Status Reason Start Date Expiration Date Visits Requested Visits Authorized [id number] Authorized PCP Requested Referral 06/23/2021 06/23/2022 1 1 Specialty Diagnoses / Procedures Referred By Contac t Referred To Contact XR IMAGING Diagnoses Acute pain of right shoulder Procedures XR SHOULDER GENERAL 3V OR MORE AP/TRUE AP/OTHER RIGHT RADEX SHOULDER COMPLETE MINIMUM 2 VIEWS Eduardo Infante MD [address] [place] [address] Xr Imaging Referral ID Status Reason Start Date Expiration Date V isits Requested Visits Authorized [id number] Closed Auto-Generate d Referral 06/23/2021 07/23/2022 1 1 Specialty Diagnoses / Procedures Referred By Contac t Referred To Contact General Surgery Diagnoses Dysphagia, unspecified type Procedures CONSULT TO GENERAL SURGERY OFFICE/OUTPATIENT [facility] 60-74 MINUTES Eduardo Infante MD [address] [place] [address] Referral ID Status Reason Start Date Expiration Date Visits Requested Visits Authorized [id number] Authorized PCP Requested Referral 2 01/12/2023 1 1 Specialty Diagnoses / Procedures Referred By Contac t Referred To Contact [facility] Diagnoses Dysphagia, unspecified type Procedures SPEECH REHAB FOLLOW UP ORDER TX SPEECH LANG VOICE COMMJ &/AUDITORY PROC IND [facility] [address] [place] [address] [facility] [address] [address] Referral ID Status Reason Start Date Expiration Date Visits Requested Visits Authorized [id number] Pending Review PCP Requested Referral Auto-Generate d Referral 2 06/20/2022 1 1 Specialty Diagnoses / Procedures Referred By Contac t Referred To Contact [facility] Diagnoses Dysphagia, unspecified type Procedures CONSULT TO SPEECH THERAPY OFFICE/OUTPATIENT [facility] 60-74 MINUTES Eduardo Infante MD [address] [place] [address] [facility] [address] [address] Referral ID Status Reason Start Date Expiration Date Visits Requested Visits Authorized [id number] Authorized Auto-Generat ed Referral 2 03/19/2023 99 99 Specialty Diagnoses / Procedures Referred By Contac t Referred To Contact [facility] Diagnoses Other dysphagia Procedures CONSULT TO SPEECH THERAPY OFFICE/OUTPATIENT [facility] 60 MINUTES Rosemary Novak, [employer] FORMER.INSURANCE RISK SURVEYOR [address] [place] [address] [facility] [place] [address] [place] [address] Referral ID Status Reason Start Date Expiration Date Visits Requested Visits Authorized [id number] Authorized Auto-Generat ed Referral 12/19/2023 12/18/2024 99 99 Advance Directives Documents on File Type Date Recorded Patient Technical Marketing Engineer Expl anation Advance Directive(s) 03/01/2016 1:17 PM Documents on File Type Date Recorded Patient Technical Marketing Engineer Expl anation Advance Directive(s) 03/01/2016 1:17 PM Advance Directive Response Recorded Date/ Time Living Will No January 12 3:53pm Power of Shop Manager No January 12, 2023 3:53pm Advance Directive Response Recorded Date/ Time Name of Medical Power of Shop Manager Philly timmons January 12, 2023 11:42pm Living Will Yes January 12 11:42pm Power of Shop Manager Yes January 12, 2023 11:42pm Advance Directive Response Recorded Date/ Time Name of Medical Power of Shop Manager Philly timmons January 12, 2023 10:42pm Living Will Yes January 12 10:42pm Power of Shop Manager Yes January 12, 2023 10:42pm Advance Directive Response Recorded Date/ Time Do you have a Healthcare Power of Shop Manager? No August 23, 2024 5:35pm Advance Directive Response Recorded Date/ Time Do you have a Healthcare Power of Shop Manager? No August 23, 2024 5:35pm Do you have a Healthcare Power of Shop Manager? Yes August 25, 2024 4:13pm Advance Directive Response Recorded Date/ Time Do you have a Healthcare Power of Shop Manager? No August 23, 2024 5:35pm Do you have a Healthcare Power of Shop Manager? Yes August 25, 2024 4:13pm Do you have a Healthcare Power of Shop Manager? 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 Blister of left foot without infection 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 Blister of left foot without infection Chief Complaint Admit Date swelling August 23, 2024 3:46p m Chief Complaint Admit Date swelling August 23, 2024 3:46p m VENOUS DUPLEX US, UNILATERAL August 24, 2 025 10:31am wound August 25, 2024 3:18p m Chief Complaint Admit Date swelling August 23, 2024 3:46p m VENOUS DUPLEX US, UNILATERAL August 24, 2 025 10:31am RT LEG PAIN August 24, 2024 10:48 am wound August 25, 2024 3:18p m OSTEOMYELITIS R TIBIA October 01, 2024 2:0 1pm Summary Purpose Family History No Family History Records FoundNo Family History Records FoundNo Family History Records Found Additional Source Comments Source Comments (unrecognize d section and content) In the event this informatio n is protected by the Federal Confidentiality of Alcohol and Drug Abuse Patient Records regulations: The Federal rules restrict any use of the information to criminally investigate or prosecute any alcohol or drug abuse patient.[facility] the event this information is protected by the Federal Confidentiality of Alcohol and Drug Abuse Patient Records regulations: The Federal rules restrict any use of the information to criminally investigate or prosecute any alcohol or drug abuse patient.[facility] the event this information is protected by the Federal Confidentiality of Alcohol and Drug Abuse Patient Records regulations: The Federal rules restrict any use of the information to criminally investigate or prosecute any alcohol or drug abuse patient.[facility] the event this information is protected by the Federal Confidentiality of Alcohol and Drug Abuse Patient Records regulations: The Federal rules restrict any use of the information to criminally investigate or prosecute any alcohol or drug abuse patient.[facility] the event this information is protected by the Federal Confidentiality of Alcohol and Drug Abuse Patient Records regulations: The Federal rules restrict any use of the information to criminally investigate or prosecute any alcohol or drug abuse patient.[facility] the event this information is protected by the Federal Confidentiality of Alcohol and Drug Abuse Patient Records regulations: The Federal rules restrict any use of the information to criminally investigate or prosecute any alcohol or drug abuse patient.[facility] the event this information is protected by the Federal Confidentiality of Alcohol and Drug Abuse Patient Records regulations: The Federal rules restrict any use of the information to criminally investigate or prosecute any alcohol or drug abuse patient.[facility] the event this information is protected by the Federal Confidentiality of Alcohol and Drug Abuse Patient Records regulations: The Federal rules restrict any use of the information to criminally investigate or prosecute any alcohol or drug abuse patient.[facility] the event this information is protected by the Federal Confidentiality of Alcohol and Drug Abuse Patient Records regulations: The Federal rules restrict any use of the information to criminally investigate or prosecute any alcohol or drug abuse patient.[facility] the event this information is protected by the Federal Confidentiality of Alcohol and Drug Abuse Patient Records regulations: The Federal rules restrict any use of the information to criminally investigate or prosecute any alcohol or drug abuse patient.[facility] the event this information is protected by the Federal Confidentiality of Alcohol and Drug Abuse Patient Records regulations: The Federal rules restrict any use of the information to criminally investigate or prosecute any alcohol or drug abuse patient.[facility] the event this information is protected by the Federal Confidentiality of Alcohol and Drug Abuse Patient Records regulations: The Federal rules restrict any use of the information to criminally investigate or prosecute any alcohol or drug abuse patient.[facility] the event this information is protected by the Federal Confidentiality of Alcohol and Drug Abuse Patient Records regulations: The Federal rules restrict any use of the information to criminally investigate or prosecute any alcohol or drug abuse patient.[facility] the event this information is protected by the Federal Confidentiality of Alcohol and Drug Abuse Patient Records regulations: The Federal rules restrict any use of the information to criminally investigate or prosecute any alcohol or drug abuse patient.[facility] the event this information is protected by the Federal Confidentiality of Alcohol and Drug Abuse Patient Records regulations: The Federal rules restrict any use of the information to criminally investigate or prosecute any alcohol or drug abuse patient.[facility] the event this information is protected by the Federal Confidentiality of Alcohol and Drug Abuse Patient Records regulations: The Federal rules restrict any use of the information to criminally investigate or prosecute any alcohol or drug abuse patient.[facility] the event this information is protected by the Federal Confidentiality of Alcohol and Drug Abuse Patient Records regulations: The Federal rules restrict any use of the information to criminally investigate or prosecute any alcohol or drug abuse patient.[facility] the event this information is protected by the Federal Confidentiality of Alcohol and Drug Abuse Patient Records regulations: The Federal rules restrict any use of the information to criminally investigate or prosecute any alcohol or drug abuse patient.[facility] the event this information is protected by the Federal Confidentiality of Alcohol and Drug Abuse Patient Records regulations: The Federal rules restrict any use of the information to criminally investigate or prosecute any alcohol or drug abuse patient.[facility] the event this information is protected by the Federal Confidentiality of Alcohol and Drug Abuse Patient Records regulations: The Federal rules restrict any use of the information to criminally investigate or prosecute any alcohol or drug abuse patient.[facility] the event this information is protected by the Federal Confidentiality of Alcohol and Drug Abuse Patient Records regulations: The Federal rules restrict any use of the information to criminally investigate or prosecute any alcohol or drug abuse patient.[facility] the event this information is protected by the Federal Confidentiality of Alcohol and Drug Abuse Patient Records regulations: The Federal rules restrict any use of the information to criminally investigate or prosecute any alcohol or drug abuse patient.[facility] the event this information is protected by the Federal Confidentiality of Alcohol and Drug Abuse Patient Records regulations: The Federal rules restrict any use of the information to criminally investigate or prosecute any alcohol or drug abuse patient.[facility] the event this information is protected by the Federal Confidentiality of Alcohol and Drug Abuse Patient Records regulations: The Federal rules restrict any use of the information to criminally investigate or prosecute any alcohol or drug abuse patient.[facility] the event this information is protected by the Federal Confidentiality of Alcohol and Drug Abuse Patient Records regulations: The Federal rules restrict any use of the information to criminally investigate or prosecute any alcohol or drug abuse patient.[facility] the event this information is protected by the Federal Confidentiality of Alcohol and Drug Abuse Patient Records regulations: The Federal rules restrict any use of the information to criminally investigate or prosecute any alcohol or drug abuse patient.[facility] the event this information is protected by the Federal Confidentiality of Alcohol and Drug Abuse Patient Records regulations: The Federal rules restrict any use of the information to criminally investigate or prosecute any alcohol or drug abuse patient.[facility] the event this information is protected by the Federal Confidentiality of Alcohol and Drug Abuse Patient Records regulations: The Federal rules restrict any use of the information to criminally investigate or prosecute any alcohol or drug abuse patient.[facility] the event this information is protected by the Federal Confidentiality of Alcohol and Drug Abuse Patient Records regulations: The Federal rules restrict any use of the information to criminally investigate or prosecute any alcohol or drug abuse patient.[facility] the event this information is protected by the Federal Confidentiality of Alcohol and Drug Abuse Patient Records regulations: The Federal rules restrict any use of the information to criminally investigate or prosecute any alcohol or drug abuse patient.[facility] the event this information is protected by the Federal Confidentiality of Alcohol and Drug Abuse Patient Records regulations: The Federal rules restrict any use of the information to criminally investigate or prosecute any alcohol or drug abuse patient.[facility] the event this information is protected by the Federal Confidentiality of Alcohol and Drug Abuse Patient Records regulations: The Federal rules restrict any use of the information to criminally investigate or prosecute any alcohol or drug abuse patient.[facility] the event this information is protected by the Federal Confidentiality of Alcohol and Drug Abuse Patient Records regulations: The Federal rules restrict any use of the information to criminally investigate or prosecute any alcohol or drug abuse patient.[facility] the event this information is protected by the Federal Confidentiality of Alcohol and Drug Abuse Patient Records regulations: The Federal rules restrict any use of the information to criminally investigate or prosecute any alcohol or drug abuse patient.[facility] Reason for Visit (unrecogniz ed section and content) Reason Comments Derm Problem spot on left ear to check Pain (Shoulder Pain) right-1 year-treate d with accupuncture years ago-thinking arthritis now would like x-ray Reason Comments Consult left ear lesion- com es and goes, sx for the last several years, no pain Specialty Diagnoses / Procedures Referred By Contac t Referred To Contact Ent - Otolaryngology Diagnoses Ear lesion Procedures CONSULT TO ENT OFFICE/OUTPATIENT [facility] 60-74 MINUTES Eduardo Infante MD [address] [place] [address] Referral ID Status Reason Start Date Expiration Date V isits Requested Visits Authorized [id number] Closed PCP Requested Referral 06/23/2021 06/23/2022 1 1 Reason Comments Fall Pt reported fall at home, (RT) rib pain, x3 days. Reason Comments Difficulty Swallowing progressed over e past 4-6 mos. Reason Comments Orders Reason Comments Speech Evaluation Specialty Diagnoses / Procedures Referred By Contac t Referred To Contact [facility] Diagnoses Dysphagia, unspecified type Procedures CONSULT TO SPEECH THERAPY OFFICE/OUTPATIENT [facility] 60-74 MINUTES Eduardo Infante MD [address] [place] [address] [facility] [place] [address] [place] [address] Referral ID Status Reason Start Date Expiration Date Visits Requested Visits Authorized [id number] Authorized Auto-Generat ed Referral 03/19/2023 99 99 Reason Comments Results Reason Onset Date Comments Refill Request 05/17/2022 Reason Onset Date Comments Refill Request 07/16/2022 Reason Comments Rx Refills Reason Comments Results Reason Comments Follow Up Reason Comments Covid Positive States he took home test 11/17 and it was +, cough, fatigue, chills, bodyaches x 2-3 days Reason Comments Results Outside results Reason Comments Speech Evaluation Speech Discharge Specialty Diagnoses / Procedures Referred By Junior hernandez Referred To Contact [facility] Diagnoses Other dysphagia Procedures CONSULT TO [facility] TH[facility]AP[facility] OFFICE/OUTPATIENT [facility] 60 MINUTES Rosemary Novak APRN.INSURANCE RISK SURVEYOR [address] [place] [address] Joan Jasso CCC-BULK SEALER OPERATOR Referral ID Status Reason Start Date Expiration Date Visits Requested Visits Authorized [id number] Authorized Auto-Generat ed Referral 12/19/2023 03/31/2024 99 99 Reason Comments Follow Up Reason Onset Date Comments Population Health Navigation Outreach 06/25/2024 [employer] PCSA Reason Comments Derm Problem lesion on right ankl e x 2 weeks Reason Comments ER F/U Right ankle wound Reason Onset Date Comments Results 08/25/2024 Reason Comments ED Follow-up Right leg wound Reason Comments Patient Update Care Teams (unrecognized sec tion and content) Team Status: Active Member Role Status Dates Dr. Eduardo Infante MD Primary Care Provider Active Team Status: Inactive Member Role Status Dates Dr. Eduardo Infante MD Primary Care Provider Active Start: August 23, 2024 End: August 23, 2024 Dr. Yogesh Bloom DO Emergency Provider Active Start : August 23, 2024 End: August 23, 2024 Service Tester Relationship Specialty Start Date End Date Eduardo Infante MD [address] [place], [place] [id number] PCP - General Family Practice 07/04/15 Service Tester Relationship Specialty Start Date End Date Eduardo Infante MD [address] [place], [place] [id number] PCP - General Family Practice 07/04/15 Service Tester Relationship Specialty Start Date End Date Eduardo Infante MD [address] [facility] [place] [address] PCP - General Family Practice 07/04/15 Service Tester Relationship Specialty Start Date End Date Eduardo Infante MD [address] [facility] [place] [address] PCP - General Family Practice 07/04/15 Service Tester Relationship Specialty Start Date End Date Eduardo Infante MD [address] [facility] [place] [address] PCP - General Family Medicine 07/04/15 Service Tester Relationship Specialty Start Date End Date Eduardo Infante MD [address] [facility] [place] [address] PCP - General Family Medicine 07/04/15 Service Tester Relationship Specialty Start Date End Date Eduardo Infante MD [address] [facility] [place] [address] PCP - General Family Medicine 07/04/15 Service Tester Relationship Specialty Start Date End Date Eduardo Infante MD [address] [facility] [place] [address] PCP - General Family Medicine 07/04/15 Service Tester Relationship Specialty Start Date End Date Eduardo Infante MD [address] [facility] [place] [address] PCP - General Family Medicine 07/04/15 Service Tester Relationship Specialty Start Date End Date Eduardo Infante MD [address] [facility] [place] [address] PCP - General Family Medicine 07/04/15 Team Status: Active Member Role Status Dates Dr. Eduardo Infante MD Primary Care Provider Active Dr. Juan Manuel Ann DO Emergency Provider Active Dr. Waqas Aguilar MD Attending Provider Active Team Status: Active Member Role Status Dates Dr. Eduardo Infante MD Primary Care Provider Active Dr. Juan Manuel Seth , DO Emergency Provider Active Dr. Waqas Aguilar MD Admit Provider, A ttending Provider, Other Provider Active Team Status: Active Member Role Status Dates Dr. Eduardo Infante MD Primary Care Provider Active Dr. Juan Manuel Ann , DO Emergency Provider Active Dr. Waqas Aguilar MD Admit Provider, Other Provider Active Sade KUMAR PANikkieC Attending Provider Active Team Status: Inactive Member Role Status Dates Dr. Eduardo Infante MD Primary Care Provider Active Dr. Juan Manuel Ann , DO Emergency Provider Active Dr. Waqas Aguilar MD Admit Provider, Attending Provi vickie Active Service Tester Relationship Specialty Start Date End Date Eduardo Infante MD [address] [place] [address] PCP - General Family Medicine 07/04/15 Service Tester Relationship Specialty Start Date End Date Eduardo Infante MD [address] [place] [address] PCP - General Family Medicine 07/04/15 Service Tester Relationship Specialty Start Date End Date Eduardo Infante MD [address] [place] [address] PCP - General Family Medicine 07/04/15 Service Tester Relationship Specialty Start Date End Date Eduardo Infante MD [address] [place] [address] PCP - General Family Medicine 07/04/15 Service Tester Relationship Specialty Start Date End Date Eduardo Infante MD [address] [place], [place] [address] PCP - General Family Medicine 07/04/15 Service Tester Relationship Specialty Start Date End Date Eduardo Infante MD [address] [place], [place] [address] PCP - General Family Medicine 07/04/15 Service Tester Relationship Specialty Start Date End Date Eduardo Infante MD [address] [place] [address] PCP - General Family Medicine 07/04/15 Service Tester Relationship Specialty Start Date End Date Eduardo Infante MD [address] [place], [place] [address] PCP - General Family Medicine 07/04/15 Service Tester Relationship Specialty Start Date End Date Eduardo Infante MD [address] [place], [place] [address] PCP - General Family Medicine 07/04/15 Service Tester Relationship Specialty Start Date End Date Eduardo Infante MD [address] [place], [place] [address] PCP - General Family Medicine 07/04/15 Service Tester Relationship Specialty Start Date End Date Eduardo Infante MD [address] [place], [place] [address] PCP - General Family Medicine 07/04/15 Team Status: Inactive Member Role Status Dates Dr. Eduardo Infante MD Primary Care Provider, Referring Provider Active Dr. Waqas Aguilar MD Attending Provider Active Team Status: Inactive Member Role Status Dates Dr. Eduardo Infante MD Primary Care Provider, Referring Provider Active Sade KUMAR, PA-C Attending Provider Active Team Status: Active Member Role Status Dates Dr. Eduardo Infante MD Primary Care Provider Active Dr. Jose Hendrix MD Attending Provider Active Team Status: Inactive Member Role Status Dates Dr. Eduardo Infante MD Primary Care Provider Active Dr. Waqas Aguilar MD Attending Provider, Referring Jessie lopez Active Service Tester Relationship Specialty Start Date End Date Eduardo Infante MD [address] [place], [place] [address] PCP - General Family Medicine 07/04/15 Monserrat Barnes APRN.INSURANCE RISK SURVEYOR [address] [place] [address] Hand Cultivator Family Medicine 03/09/24 Rosemary Novak APRN.INSURANCE RISK SURVEYOR [address] [place] [address] Hand Cultivator Family [facility] 03/09/24 Service Tester Relationship Specialty Start Date End Date Eduardo Infante MD [address] [place] [address] PCP - General Family Medicine 07/04/15 Monserrat Barnes APRN.INSURANCE RISK SURVEYOR [address] [place] [address] Hand Cultivator Family Medicine 03/09/24 Rosemary Novak AUTOMATIC BUFFING WHEEL FORMER.INSURANCE RISK SURVEYOR [address] [place] [address] [facility] Service Tester Relationship Specialty Start Date End Date Eduardo Infante MD [address] [place] [address] PCP - General Family Medicine 07/04/15 Monserrat Barnes AUTOMATIC BUFFING WHEEL FORMER.INSURANCE RISK SURVEYOR [address] [place] [address] Hand Cultivator Family Medicine 03/09/24 Rosemary Novak APRN.INSURANCE RISK SURVEYOR [address] [place] [address] [facility]24 Team Status: Inactive Member Role Status Dates Dr. Eduardo Infante MD Primary Care Provider Active Start: August 23, 2024 End: August 23, 2024 Dr. Yogesh Bloom DO Attending Provider Active Start : August 23, 2024 End: August 23, 2024 Dr. Yogesh Bloom DO Emergency Provider Active Start : August 23, 2024 End: August 23, 2024 Team Status: Active Member Role Status Dates Dr. Eduardo Infante MD Primary Care Provider Active Start: August 24, 2024 Dr. Yogesh Bloom DO Attending Provider Active Start : August 24, 2024 Dr. Yogesh Bloom DO Referring Provider Active Start : August 24, 2024 Team Status: Inactive Member Role Status Dates Dr. Eduardo Infante MD Primary Care Provider Active Start: August 25, 2024 End: August 25, 2024 Dr. Abby Alas DO Emergency Provider Active Start: August 25, 2024 End: August 25, 2024 Service Tester Relationship Specialty Start Date End Date Eduardo Infante MD [address] [facility] [place] [address] PCP - General Family Medicine 07/04/15 Monserrat Barnes, AUTOMATIC BUFFING WHEEL FORMER.INSURANCE RISK SURVEYOR [address] [facility] [place] [address] Formerly [facility] 03/09/24 Rosemary Novak, AUTOMATIC BUFFING WHEEL FORMER.INSURANCE RISK SURVEYOR [address] [facility] [place] [address] Formerly [facility] 03/09/24 Service Tester Relationship Specialty Start Date End Date Eduardo Infante MD [address] [facility], [place] [address] PCP - General Family Medicine 07/04/15 Monserrat Barnes, AUTOMATIC BUFFING WHEEL FORMER.INSURANCE RISK SURVEYOR [address] [facility] [place] [address] Formerly [facility] 03/09/24 Rosemary Novak APRN.INSURANCE RISK SURVEYOR [address] [place] [address] Formerly [facility] 03/09/24 Team Status: Inactive Member Role Status Dates Dr. Eduardo Infante MD Primary Care Provider Active Start: August 24, 2024 End: August 24, 2024 Dr. Yogesh Bloom DO Attending Provider Active Start : August 24, 2024 End: August 24, 2024 Dr. Yogesh Bloom DO Referring Provider Active Start : August 24, 2024 End: August 24, 2024 Service Tester Relationship Specialty Start Date End Date Eduardo Infante MD [address] [place] [address] PCP - General Family Medicine 07/04/15 Monserrat Barnes APRN.INSURANCE RISK SURVEYOR [address] [place] [address] Formerly [facility] 03/09/24 Rosemary Novak APRN.INSURANCE RISK SURVEYOR [address] [place] [address] Formerly [facility] 03/09/24 Service Tester Relationship Specialty Start Date End Date Eduardo Infante MD [address] [place] [address] PCP - General Family Medicine 07/04/15 Monserrat Barnes APRN.INSURANCE RISK SURVEYOR [address] [facility] [place] [address] Formerly [facility] 03/09/24 Rosemary Novak APRN.INSURANCE RISK SURVEYOR [address] [place] [address] Formerly [facility] 03/09/24 Service Tester Relationship Specialty Start Date End Date Eduardo Infante MD [address] [place], [place] [address] PCP - General Family Medicine 07/04/15 Monserrat Barnes [employer] FORMER.INSURANCE RISK SURVEYOR [address] [place] [address] Formerly [facility] 03/09/24 Rosemary Novak AUTOMAT[employer] BU[employer]ING WHEEL FORMER.INSURANCE RISK SURVEYOR [address] [place] [address] Formerly [facility] 03/09/24 Service Tester Relationship Specialty Start Date End Date Eduardo Infante MD [address] [place] [address] PCP - General Family Medicine 07/04/15 Monserrat Barnes [employer]OMATIC BUFFING WHEEL FORMER.INSURANCE RISK SURVEYOR [address] [place], [place] [id number] Formerly [facility] 03/09/24 Rosemary Novak [employer]OMATIC BUFFING WHEEL FORMER.INSURANCE RISK SURVEYOR [address] [place] [address] Formerly [facility] 03/09/24 Team Status: Active Member Role/Relationship Status Dates Dr. Eduardo Infante MD Primary Care Provider Active Team Status: Inactive Member Role/Relationship Status Dates Dr. Eduardo Infante MD Primary Care Provider Active Start: August 23, 2024 End: August 23, 2024 Dr. Yogesh Bloom DO Attending Provider Active Start : August 23, 2024 End: August 23, 2024 Dr. Yogesh Bloom DO Emergency Provider Active Start : August 23, 2024 End: August 23, 2024 Team Status: Inactive Member Role/Relationship Status Dates Dr. Eduardo Infante MD Primary Care Provider Active Start: August 24, 2024 End: August 24, 2024 Dr. Yogesh Bloom DO Attending Provider Active Start : August 24, 2024 End: August 24, 2024 Dr. Yogesh Bloom DO Referring Provider Active Start : August 24, 2024 End: August 24, 2024 Team Status: Active Member Role/Relationship Status Dates Dr. Easton Devine MD Attending Provider Active Start: August 24, 2024 Dr. Yogesh Bloom DO Referring Provider Active Start : August 24, 2024 Team Status: Inactive Member Role/Relationship Status Dates Dr. Eduardo Infante MD Primary Care Provider Active Start: August 25, 2024 End: August 25, 2024 Dr. Abby Alas DO Attending Provider Active Start: August 25, 2024 End: August 25, 2024 Dr. Abby Alas DO Emergency Provider Active Start: August 25, 2024 End: August 25, 2024 Team Status: Active Member Role/Relationship Status Dates Dr. Eduardo Infante MD Primary Care Provider Active Start: October 01, 2024 Dr. Rolando Christina MD Emergency Provider Active Start: October 01, 2024 Dr. Natalya Xiao DO Admit Provider Active Start : October 01, 2024 Dr. Natalya Xiao DO Attending Provider Active S tart: October 01, 2024 Goals (unrecognized section and content) Goals may be documented in a n alternate sectionGoals may be documented in an alternate sectionGoals may be documented in an alternate sectionGoals may be documented in an alternate sectionGoals may be documented in an alternate sectionGoals may be documented in an alternate section (unrecognized sect ion and content) No Status Records FoundNo Status Records FoundNo Status Records Found INFORMATION SOURCE (unrecogn ized section and content) DATE CREATED AUTHOR 05/03/2022 [facility] DATE CREATED AUTHOR AUTHOR'S ORGANWILLIE ATION 08/31/2024 [facility] DATE CREATED AUTHOR AUTHOR'S ORGANIZ ATION 09/29/2024 [facility] FOR RECORDS PERTAINING TO PATIENTS WHO ARE OR HAVE BEEN ENROLLED IN A CHEMICAL DEPENDENCY/SUBSTANCEABUSE PROGRAM, SOME INFORMATION MAY BE OMITTED. This clinical summary was aggregated from multiple sources. Caution should be exercised in using it in the provision of clinical care. This summary normalizes information from multiple sources, and as a consequence, information in this document may materially change the coding, format and clinical context of patient data. In addition, data may be omitted in some cases. CLINICAL DECISIONS SHOULD BE BASED ON THE PRIMARY CLINICAL RECORDS. [facility] [employer] [facility]. provides no warranty or guarantee of the accuracy or completeness of information in this document.
[2024-10-02] MEDS: Vancomycin IV 500 MG/100 ML BAG 100 MG IV ×2 (01:29→12:55)
[2024-10-02 03:38] VITALS: BP 127/61; PULSE 51; RESP 16; TEMP 36.4; O2SAT 97
[2024-10-02 03:55] VITALS: BMI 17.8
[2024-10-02] MEDS: Piperacil/Tazobactam 3.375 GM in 0.9% Normal Saline (50mL MB+) 50 ML IV ×3 (05:48→20:51)
[2024-10-02 06:03] LABS: Hematocrit 36.2 % (40-54); Hemoglobin 12.2 g/dL (13.0-16.5); Immature Granulocytes Count 0.010 X10^3/uL (0.0-0.0); Mean Corp Hgb Conc 33.7 g/dL (32-36); Mean Corpuscular Volume 97.6 fL (80-94); Mean Platelet Vol. 8.7 fl (6.2-12.0); NRBC Flagged by Analyzer 0 % (0-5); Platelet Count 153 K/mm3 (150-450); RBC Distribution Width CV 12.2 % (11.6-14.6); RBC Distribution Width SD 43.8 fl (35.1-43.9); Red Blood Count 3.71 M/mm3 (4.6-6.2); White Blood Count 3.3 K/mm3 (4.4-11.0)
[2024-10-02 06:20] LABS: AST(SGOT) 25 U/L (<=37); Alanine Aminotransfer ALT/SGPT 16 U/L (<=46); Albumin, Serum 3.5 g/dL (3.4-4.8); Alkaline Phosphatase 70 U/L (40-129); Anion Gap 7 (5-15); BUN 19 mg/dL (4-19); BUN/Creat Ratio 19.2 RATIO (10-20); Calcium,Total 8.6 mg/dL (7.6-11.0); Carbon Dioxide 25.0 mmol/L (21.0-32.0); Chloride 108 mmol/L (98-108); Estimated Creatinine Clearance 42.35 ml/min (50-250); Globulin 1.5 g/dL (2.2-4.2); Glucose 74 mg/dL (70-99); Magnesium 2.3 mg/dL (1.5-2.2); Potassium 3.9 mmol/L (3.3-5.1)
[2024-10-02 07:26] VITALS: O2SAT 95
[2024-10-02] MEDS: Magnesium Sulfate 2 GM in Dextrose 5%-Water (100mL Bag) 100 ML IV (08:17)
[2024-10-02] MEDS: 0.9% Saline Lock 10 ML Syringe IV (08:17)
[2024-10-02] MEDS: Lactobacillis Acidophilus 1 CAP PO ×4 (08:22→20:51)
[2024-10-02] MEDS: Ensure Plus High Protein 120 ML LIQUID PO ×3 (08:27→18:34)
[2024-10-02] MEDS: Juven (unflavored) Packet 2 PACKET PO ×2 (08:33→18:34)
[2024-10-02 09:30] VITALS: BP 135/74; PULSE 55; RESP 18; TEMP 37.1; O2SAT 98
--- NOTE | 2024-10-02 11:23 | NURSING ---
called xray (per Nursing vending supervisor recommendation) to inform pt is ordered a STAT MRI. Devika with a patient and will call back.
[2024-10-02 17:00] VITALS: BP 144/70; PULSE 58; RESP 18; TEMP 36.9; O2SAT 98
[2024-10-02 20:50] VITALS: BP 129/65; PULSE 61; RESP 16; TEMP 36.4; O2SAT 97
[2024-10-03 00:54] LABS: Vancomycin, Trough Level 9.1 ug/mL (5.0-15.0)
--- NOTE | 2024-10-03 01:05 | PCM.RX.CS ---
Consult Antibiotic Management Pharmacy has been consulted to manage selected antibiotic: Vancomycin Type of Intervention Type of Consult: Follow-up Suspected Infection Suspected Infection: Osteomyelitis Labs Labs: Sodium 140 mmol/L (133-145) 10/02/24 04:49 Potassium 3.9 mmol/L (3.3-5.1) 10/02/24 04:49 Chloride 108 mmol/L (98-108) 10/02/24 04:49 Carbon Dioxide 25.0 mmol/L (21.0-32.0) 10/02/24 04:49 Anion Gap 7 (5-15) 10/02/24 04:49 BUN 19 mg/dL (4-19) 10/02/24 04:49 Creatinine 1.00 mg/dL (0.70-1.20) 10/02/24 04:49 Est GFR (MDRD) Non-Af 73 (>60) 10/02/24 04:49 BUN/Creatinine Ratio 19.2 RATIO (10-20) 10/02/24 04:49 Glucose 74 mg/dL (70-99) 10/02/24 04:49 Vancomycin Trough 9.1 ug/mL (5.0-15.0) 10/02/24 23:42 Dosing Weight Weight used for dosin kg Estimated Creatinine Clearance Estimated Creatinine Clearance: 42 Goal Trough Goal Trough: 15-20 mcg/mL Pharmacy Plan for Drug Dosing Pharmacy Plan for Drug Dosing: Vancomycin trough level of 9.1, drawn 10.45hrs post-dose, was below the target range of 15-20. Will increase dose to 1000mg q12h, and will draw another trough prior to fourth dose of the new regimen. Pharmacy Service will continue to monitor and adjust dosing as required. Follow-Up Labs Follow-Up Labs: Trough: Vancomycin Date/Time Labs Ordered Labs to be done on [date and time ordered]: 10/04/24 @3122
[2024-10-03] MEDS: Vancomycin IV 1,000 MG/200 ML BAG 200 MG IV ×2 (01:08→13:24)
[2024-10-03 03:40] VITALS: BP 132/66; PULSE 53; RESP 16; TEMP 36.2; O2SAT 98
[2024-10-03 05:52] VITALS: BMI 17.8
--- NOTE | 2024-10-03 06:00 | MRI_ITS ---
PROCEDURE: LOWER EXT NO JOINT W/WO CONT 10/03/2024 REASON FOR EXAM: Osteomyelitis TECHNIQUE: T1, T2, stir, postcontrast T1 fat sat. LOWER EXT NO JOINT W/WO CONT CONTRAST: 10 cc Clariscan COMPARISON: August 25, 2024 CT FINDINGS: There is a 1.2 x 0.8 cm developing osteochondral defect in the medial distal tibial articular surface with no visible free fragment. There is normal T1 pre and postcontrast marrow signal in the tibia and fibula with no evidence of osteomyelitis. There is subcutaneous edema associated with a skin marker at the anterior soft tissues at the distal tibia with no organized or drainable collection. Muscular structures appear intact. Neurovascular structures are unremarkable. MRI/Lower Ext No Joint W/WO Cont IMPRESSION: There is no evidence of osteomyelitis. There is subcutaneous edema associated with a skin marker at the anterior soft tissues at the distal tibia with no organized or drainable collection. The differential includes cellulitis and venous stasis. Reading Location: [facility]
[2024-10-03] MEDS: Piperacil/Tazobactam 3.375 GM in 0.9% Normal Saline (50mL MB+) 50 ML IV (06:10)
--- NOTE | 2024-10-03 08:07 | PN.HOSP_ITS ---
Reason for Visit Reason for Visit: Abnormal MRI Subjective Subjective Pt has no issues. Still no MRI results from [facility] so will have to order MRI here to assist with planning for care. Objective Data Objective Data Vital Signs: Vital Signs Temp Pulse Resp BP Pulse Ox O2 Del Method 97.2 F L 53 L 16 132/66 H 98 Room Air 10/03/24 03:40 10/03/24 03:40 10/03/24 03:40 10/03/24 03:40 10/03/24 03:40 10/03/24 07:15 Oxygen Delivery Method Room Air Weight: 56.5 kg Body Mass Index (BMI) 17.8 Intake & Output: Intake and Output for Last 24 Hours 10/01/24 10/02/24 10/03/24 23:59 23:59 23:59 Intake Total 650 / 650 2554 / 2554 550 / 550 Balance 650 / 650 2554 / 2554 550 / 550 Lab / Micro Data 10/02/24 04:49 10/02/24 04:49 Labs: Laboratory Results - last 24 hr 10/02/24 23:42: Vancomycin Trough 9.1 Physical Exam Const alert, oriented x3, no apparent distress, average body habitus and healthy appearing; Negative for well nourished Constitutional Narrative: Thin, elderly, white male, sitting up in the edge of the bed listening to NPR and eating breakfast Extremity Extremity Narrative: Trace to 1+ edema right lower extremity, no cyanosis or clubbing, Dressing removed and about a nickel sized wound without drainage over the medial malleolus, bone is exquisitely tender Neuro moves all extremities and no focal motor deficits Speech: speech normal Psych affect normal Psych Narrative: very pleasant Assessment & Plan Assessment/Plan (1) Failure of outpatient treatment: (2) Traumatic open wound of right lower leg with infection: QUALIFIERS: Encounter type: initial encounter Qualified Code(s): S81.801A - Unspecified open wound, right lower leg, initial encounter; L08.9 - Local infection of the skin and subcutaneous tissue, unspecified (3) Acute osteomyelitis of right tibia: PLAN: Plan Right lower extremity infected wound/acute osteomyelitis of the tibia - Outpatient failure with Omnicef and clindamycin - Cultures obtained in the emergency department from blood on 08/25 with NGTD x 5 days - CRP and ESR completely normal which is odd for osteo - MRI done as outpatient over at [facility] and awaiting results but we did get a call in the emergency department at the findings were consistent with osteomyelitis -Unfortunately we still have the results from [facility] and I am unable to get into [facility] so will have to repeat MRI with and without contrast -MRI done and pending read - 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
[2024-10-03] MEDS: Lactobacillis Acidophilus 1 CAP PO ×2 (08:08→13:25)
[2024-10-03] MEDS: Juven (unflavored) Packet 2 PACKET PO (08:08)
[2024-10-03 08:19] VITALS: BP 139/68; PULSE 56; RESP 16; TEMP 36.4; O2SAT 95
[2024-10-03] MEDS: Ensure Plus High Protein 120 ML LIQUID PO ×2 (08:19→11:48)
--- NOTE | 2024-10-03 14:01 | CASEMGMT ---
RYAN FINNEGAN Assessment: Face to Face with pt for initial transition planning/care coordination assessment. RN KAIN introduced self and role at [facility], pt voices understanding and consents to assessment. Pt is A&O x4 and answers all questions appropriately at this time. Care providers, pharmacy, and demographics verified/updated. Strata: 2 Admitting Dx: Leg infection/OM PCP: [facility] Specialists: Denies Preferred Pharmacy[facility] Benef[facility]: yes LNOK: Living Arrangements: Pt lives with with, in the process of moving to Independent Living. They currently have possession of both homes and wish to be completely moved into new home by Oct 30. ADLs: Pt reports I at baseline, states he does yard work and rides a bike still. he states him and his are both very active. Transportation: Pt drives self and denies concerns with transportation. DME: cane HHC/SNF: Denies Hx of. Pt states no concerns with going home at time of dc. Pt states no further concerns/needs. CM to follow. Advised pt to ask CM if any further question/concerns/needs arise, voices understanding. Pt Goal: Home Plan: Home with family support, ID and Wound Nurse Consulted. Discussed possibility of IV antibiotics. Pt states him and his would be able to do IV antibiotics at home if need be, and Pt would be agreeable to C services if needed. Andrew DAVIS CM
--- NOTE | 2024-10-03 14:51 | PCM.DC.SUM ---
Providers Date of Admission: 10/01/24 Date of Discharge: 10/03/24 Primary Care Physician: Dr. Eduardo Calderon MD Consultations 10/01/24 14:17 Consult: Infectious Disease Routine Consulting Provider: Corby Srinivasan Reason for Consult: OM/Wound infection EMERGENT Consult: No Notified: Yes Date Notified: 10/01/24 Time Notified: 14:23 Method of Notification: Answering Service Consult: Onc/Wound/hvac operations technician Routine Comment: Consult: Orthopedics Routine Consulting Provider: Francisco J Martinez Reason for Consult: OM R L EMERGENT Consult: No Notified: Yes Date Notified: 10/01/24 Time Notified: 14:00 Method of Notification: ED Physician Initiated Reason For Visit: LEG INFECTION/OM Diagnosis Discharge Diagnosis (1) Failure of outpatient treatment: Status: Acute Code(s): Z78.9 - Other specified health status (2) Traumatic open wound of right lower leg with infection: Status: Acute Code(s): S81.801A - Unspecified open wound, right lower leg, initial encounter; L08.9 - Local infection of the skin and subcutaneous tissue, unspecified Qualifiers: Encounter type: initial encounter Qualified Code(s): S81.801A - Unspecified open wound, right lower leg, initial encounter; L08.9 - Local infection of the skin and subcutaneous tissue, unspecified (3) Acute osteomyelitis of right tibia: Status: Acute Code(s): M86.161 - Other acute osteomyelitis, right tibia and fibula Medications at Discharge Home Medications clindamycin HCl 150 mg capsule 150 mg PO 4X/DAY Wound 10/03/24 mupirocin 2 % topical ointment 1 applic topical BID Wound 10/03/24 Hospital Course Procedures - (MRI distal right lower extremity) Summary of Care Provided Minutes Spent on Discharge: 25 Hospital Course: ROXANA OWENS, is a 88 M who presented to the emergency department at [facility] on 10/01/2024 at the request of his primary care physician Dr. Calderon. Patient had a wound that developed after a traumatic episode. At the end of June he had an episode where a wound developed acute remember the exact etiology but has been problematic on and off since that point in time. He has been to the emergency department a couple times. He had a venous duplex that was unremarkable. Extensive imaging was performed and lab work and the case was discussed with orthopedic surgery. At his last emergency department visit on 08/25/2024 the patient was given antibiotics with cefdinir for 10 days and instructed to follow-up with Dr. Turk. It does not appear that he followed up with Dr. Turk. His primary care physician was concerned since the wound is not healing so an MRI was performed today and per emergency department physician's conversation with the primary care physician the MRI was consistent with osteomyelitis of the tibia. Patient reports that open ~3 days ago his pain was pretty significant but the pain has now abated. He is walking without an antalgic gait around the room and states he has no pain with ambulation. Patient states that the wound is not draining and is dry on top. Patient has no systemic symptoms. Vital signs on presentation showed temperature 97.7, heart rate 65, respiratory 18, blood pressure 159/62 and pulse ox is 99% room air. CBC and CMP are completely unremarkable. Blood cultures have been drawn on 08/25/2024 and were negative. Patient was admitted to the medical floor and orthopedic surgery was consulted due to the concern of osteomyelitis. Unfortunately, we were unable able to obtain the MRI records or actual images from [facility]. Given this, we obtained her own MRI with and without contrast and no osteomyelitis was identified. This was read out as negative by radiology and reviewed by orthopedic surgery (Dr. Martinez) and both parties felt that there was no evidence of osteo. This is supported by the fact that his sed rate and CRP were both also negative. Given this, we will have him continue the oral antibiotics he was placed on to continue that course until completed. I will make a referral to Dr. Jose Turk for ongoing wound care since this has been a difficult to heal wound. Patient is to call on Saturday to make this appointment and follow-up. He should follow-up with his primary care physician within the next 1 to 2 weeks as well. Discharge diagnoses: Delayed healing wound right lower extremity Osteomyelitis ruled out Underweight History of tobacco abuse Physical Exam Const alert, oriented x3, no apparent distress, average body habitus, no limitations and healthy appearing; Negative for well nourished Constitutional Narrative: Thin, elderly, white male, sitting up in the edge of the bed listening to NPR and eating breakfast General Appearance: cooperative, comfortable, well kempt and well developed Exam Limitations: no limitations Nutritional Appearance: thin HEENT normocephalic, head/scalp atraumatic and moist oral mucous membranes Resp normal respiratory effort, no retractions, no use of accessory muscles and clear to auscultation bilaterally Resp Narrative: Diminished but clear Auscultation: Negative for rales, rhonchi or wheezes Cardio regular rate, regular rhythm, S1 normal heart sound, S2 normal heart sound, no murmurs, no rub, no gallops and no clicks GI normal to inspection, nondistended, normoactive bowel sounds, soft to palpation and non-tender GI Narrative: Scaphoid abdomen Extremity Extremity Narrative: Trace to 1+ edema right lower extremity, no cyanosis or clubbing, Dressing removed and about a nickel sized wound without drainage over the medial malleolus, bone is tender Neuro moves all extremities and no focal motor deficits Speech: speech normal Psych affect normal Psych Narrative: very pleasant Weight / BMI Weight Weight: 56.5 kg Body Mass Index (BMI) 17.8 ABG / Lab / Microbiology Data 10/02/24 04:49 10/02/24 04:49 Laboratory: Laboratory Results - last 24 hr 10/02/24 23:42: Vancomycin Trough 9.1 Radiography Diagnostic Testing: Radiology Impression Lower Extremity MRI 10/03/24 06:00 IMPRESSION: There is no evidence of osteomyelitis. There is subcutaneous edema associated with a skin marker at the anterior soft tissues at the distal tibia with no organized or drainable collection. The differential includes cellulitis and venous stasis. Reading [facility] Instructions Discharge Diet: No restrictions Discharge Activity: Return to Normal Activity DC O2, CPAP, BIPAP Needs Home O2 Discharge instructions: No Meaningful Use Info Meaningful Use Meaningful Use Diagnoses (Choose all that apply): None applicable Ischemic Stroke Statin Dosing Therapy Reference: STATIN DOSE THERAPY REFERENCE: * Patients > 75 years receive moderate or high dose statin therapy. * Patients 75 years or YOUNGER should receive HIGH intensity statin dose unless contraindicated. You will be required to document reason for non-treatment if statin daily dose does not meet guidelines. HIGH DOSE STATIN THERAPY DAILY Atorvastatin > than or = to 40 mg Rosuvastatin > than or = to 20 mg Amlodipine + Atorvastatin > than or = to 2.5/40 mg Ezetimibe + Simvastatin 10/80 mg Simvastatin 80mg Discharge Plan Admission Admit Date/Time: 10/01/24 13:58 Primary Reason for Your Visit: Right lower extremity wound Attending Provider: Natalya Xiao Primary Care Provider: Eduardo Calderon Consulting Providers: Corby Srinivasan; Francisco J Martinez Instructions Additional Instructions / Restrictions: 1. Continue previously prescribed antibiotics and take until complete Discharge Orders/Prescriptions Prescriptions: Continued clindamycin HCl 150 mg capsule 150 mg PO 4X/DAY mupirocin 2 % ointment 1 applic topical BID Discontinued cefdinir 300 mg capsule 300 mg PO Q12H Qty: 20 0RF Referrals / Follow Up: Jose Turk MD [Med Staff - Active Staff] - See Referral Note (Call Saturday to set up an appointment to be seen next week for a wound that has delayed healing) Eduardo Calderon MD [Primary Care Provider] - Within 2 Weeks Disposition Disposition (needs filled in before D/C Order can be placed): Home, Self Care Charges/Coding Visit Charges Inpatient E&M: 65948 Disch Hosp
[2024-10-03 15:40] VITALS: BP 134/73; PULSE 60; RESP 16; TEMP 36.3; O2SAT 96
== END 2024-10-03 15:57 | disposition home or self-care (01) | DRG 605 ==
LOC: ED 11:37 → MS3 14:40
PROVIDERS: Admitting Provider Internal Medicine; Emergency Provider Emergency Medicine; PCP Family Medicine; Visit Provider Internal Medicine
DX: S81.801A Unspecified open wound, right lower leg, initial encounter (principal); Z68.1 Body mass index [BMI] 19.9 or less, adult; L08.9 Local infection of the skin and subcutaneous tissue, unspecified; R63.6 Underweight; Z87.891 Personal history of nicotine dependence; Z90.49 Acquired absence of other specified parts of digestive tract; Z78.9 Other specified health status
CPT/HCPCS: 36415; 73720; 80048; 80053; 80202; 83735; 84100; 85025; 85652; 86140; 94668; 97161; 97165; 97802; 99284; A9575; A4216

== ENCOUNTER 2024-10-12 09:49 | Outpatient (RCR) | payer MEDICARE, BC, SELFPAY ==
[2024-10-12 09:56] VITALS: BP 166/78; PULSE 72; RESP 18; TEMP 36; BMI 18.0
--- NOTE | 2024-10-12 10:10 | PCM.WC.HP ---
History of Present Illness Date of Service: 10/12/24 Chief Complaint: Non healing Right leg Wound History of Wound: Trey Muir is a delightful 88-year-old male who was admitted from the emergency department on 01 October 2024 to the [facility] medicine team for treatment of a right lower extremity wound. 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 However on admission to the [facility], MRI was repeated and there was no radiographic signs of osteomyelitis per read from the radiologist as well as the orthopedic surgeon Dr. Becerra (consulted). The CRP and sed rates were both also within normal limits. The patient was discharged on oral antibiotics on 03 October 2024 and referred to the wound care center for further evaluation of the right leg wound. Patient presents today in our wound care center clinic for evaluation: Current encounter, HPI, 12 October 2024: The patient is an 88-year-old male presenting with a leg wound sustained from a sharp object. The injury occurred in June when the patient possibly stepped on a salvador nail or wire in a shed, causing a minor bleed that was initially not given much attention. The wound has been healing, and the patient received intravenous treatment for 2.5 days, which improved the condition. The patient has no history of tetanus vaccination, although it was recommended due to the nature of the injury. The patient expressed reluctance to undergo further invasive procedures due to a previous experience at a wound center. The patient maintains a healthy lifestyle, having quit smoking in 1991 and adhering to a diet rich in fruits and vegetables. 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 ROS - Cardiovascular: Denies history of blood clots. - Integumentary: Reports leg wound healing, no purulent drainage. - Musculoskeletal: Denies pain in the leg currently, reports previous extreme pain resolved with treatment. Attestation: Documentation on this patient encounter was supported using ambient scribe technology/ voice AI technology. The patient consented to recording for the purpose of documenting the encounter. Provider reviewed content of the generated note prior to signature. [facility] Medical History Cancer Former smoker History of intestine removal Lower limb pain, anterior Wound of right lower extremity Allergy/AdvReac Type Severity Reaction Status Date / Time No Known Allergies Allergy Verified 10/12/24 10:07 Surgical History S/P exploratory laparotomy Hx of appendectomy Social History Smoking Status: Former smoker Vital Signs Vital Signs Vital Signs: 10/12/24 09:56 Temperature 96.8 F L Temperature Source Temporal Pulse Rate 72 Respiratory Rate 18 Blood Pressure 166/78 H Blood Pressure Mean 107 Blood Pressure Source Monitor Weight Weight: 125 lb 9.245 oz Body Mass Index (BMI) 18.0 Physical Exam Narrative - Vascular: 3+ dorsalis pedis and 3+ posterior tibial pulses, indicating good blood flow. - Integumentary: 1 x 1 cm wound on the leg, smaller than previously documented. Scab formed. No drainage. No induration or fluid collections. Debridement Note Debridement Note Post-Debridement Measurements and Additional Note: Post-Debridement Measurements/Treatment - Nurse 1 - General Ulcer Assessment Start: 10/12/24 09:56 Freq: Status: Active Protocol: [email or web address] Activity Type Activity Date Activity User E-sign Co-sign Detail Recorded Client Recorded Date Recorded By Document 10/12/24 09:56 [id number] 10/12/24 10:05 DL 10/12/24 09:56 - Today's Visit Information Type of service Initial Visit Arrival Mode Ambulatory Transfer Assistance None Patient Identification Verified (Name & Yes ) Patient Requires Transmission-Based No Precautions Height and Weight Height 5 ft 10 in Weight 125 lb 9.245 oz Weight in Pounds 125.6 lbs Body Mass Index (BMI) 18.0 BMI Classification Underweight Vital Signs Temperature (97.8 F-99.1 F) 96.8 F L Temperature Source Temporal Pulse Rate (60-100) 72 Pulse Location Monitor Respiratory Rate (12-18) 18 Respiratory rate source Observation Blood Pressure (90/60-120/80) 166/78 H Blood Pressure Mean 107 Source Monitor Pain Scale: 0-10 Numeric Is Patient Pain Free? Yes Communication Assessment Preferred language [place] Able to Read Yes Able to Write Yes Right Hearing Abillity Normal Left Hearing Abillity Normal Visual Assistive Devices Glasses Teaching Assessment Preferences Verbal,Written, Demonstration Barriers to Learning None Readiness To Learn Good Willingness to Engage in Self Management Med Activies Readiness to Engage in Self Management Med Activities Anxiety Level Calm Cooperation Cooperative Perception Coherent Interest in Health Problem Asks Questions Education Importance Denies Need Does Patient Smoke tobacco or other No substances Smoking Status Former smoker Is Patient Diabetic No Teaching: Wound Center Dressing Your Wound -Person Taught Patient WC - Nurse 1 - General Ulcer Measurement Start: 10/12/24 09:56 Freq: Status: Active Protocol: Activity Type Activity Date Activity User E-sign Co-sign Detail Recorded Client Recorded Date Recorded By Document 10/12/24 09:56 DL [id number] 10/12/24 10:05 DL 10/12/24 09:56 Wound Center Nurse 1 #2 R Med LE -Current Size (cm) - Length 0.8 -Current Size (cm) - Width 0.8 -Current Size (cm) - Depth 0.1 -Total Square Cm 0.64 -Photo Taken Yes Right Calf (cm) 32.3 Right Ankle (cm) 22.5 Charges/Coding Visit Charges Office Visits / Consults: [id number] OV L3 New 30min Assessment/Plan Assessment/Plan (1) Wound of right lower extremity: CODE(S): S81.801A - Unspecified open wound, right lower leg, initial encounter QUALIFIERS: Encounter type: initial encounter Qualified Code(s): S81.801A - Unspecified open wound, right lower leg, initial encounter PLAN: Plan Assessment and Plan The patient is an 88-year-old male with a history of prostate cancer presenting with a leg wound sustained from a sharp object. The wound, initially caused by a possible salvador nail or wire, has shown improvement following intravenous treatment, and there is no evidence of osteomyelitis as confirmed by [facility] MRI and normal ESR and sed rate. The patient has not received a tetanus vaccination, which is recommended due to the nature of the injury. 1. Leg Wound From Sharp Object The patient sustained a leg wound from a sharp object, possibly a salvador nail or wire, which has been healing with intravenous treatment. There is no evidence of osteomyelitis as confirmed by MRI and normal ESR and sed rate. Recommendation includes keeping the wound clean and dry (betadine paint twice daily), and considering a tetanus vaccination due to the nature of the injury.
--- NOTE | 2024-10-12 16:05 | WC ---
PHOTO 10/12/24 RIGHT ROZ LAMAS
== END 2024-10-12 15:51 | disposition home or self-care (01) ==
LOC: WC 09:49
PROVIDERS: PCP Family Medicine; Referring Provider Family Medicine; Visit Provider Surgery Plastic and Reconstructive Surgery
DX: S81.801A Unspecified open wound, right lower leg, initial encounter (principal); W26.8XXA Contact with other sharp object(s), not elsewhere classified, initial encounter; Z87.891 Personal history of nicotine dependence; Z85.46 Personal history of malignant neoplasm of prostate
CPT/HCPCS: 99213; G0463